=== PATIENT | female | born 1940 | race Caucasian/White ===

== ENCOUNTER → 2018-06-01 | Outpatient (CLI) | payer MEDICARE ==
--- NOTE | 2018-06-01 13:38 | MR ---
EXAMINATION TYPE: MR knee RT wo con DATE OF EXAM: 06/01/2018 COMPARISON: Plain film 04/28/2018 HISTORY: Right knee pain TECHNIQUE: Multiplanar, multisequence imaging of the right knee is performed without IV contrast. FINDINGS: MEDIAL MENISCUS: Linear increased signal present at the inferior margin of the body compatible with t ear extending to the articular surface. Anterior horn thought to be intact. Some abnormal signal pres ent within the posterior horn is noted. LATERAL MENISCUS: Lateral meniscus is displaced at its anterior margin laterally from the joint, some linear increased signal within the body compatible with tear, posterior horn thought to be intact. CRUCIATE LIGAMENTS: Posterior cruciate ligament is intact. The level of the expected insertion of the anterior cruciate ligament there is abnormal signal compatible with at least partial tear, the fiber s are not well defined COLLATERAL LIGAMENTS: The medial collateral ligament and lateral collateral ligament complex are inta ct and unremarkable. EXTENSOR MECHANISM: Visualized quadriceps and patellar tendons are intact. EFFUSION: Joint effusion present. POPLITEAL CYST: No popliteal/thorpe cyst. 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 IMPRESSION: Tear of the menisci as described, osteoarthritis and joint effusion. Findings compatible with a least partial tear of the anterior cruciate ligament near its expected insertion. Thorpe's cyst.
== END ==
LOC: RADMRIMAIN 12:30
PROVIDERS: ATTEND Orthopaedic Surgery
DX: S83.206A Unspecified tear of unspecified meniscus, current injury, right knee, initial encounter (principal); M17.11 Unilateral primary osteoarthritis, right knee; M71.21 Synovial cyst of popliteal space [Baker], right knee

== ENCOUNTER 2018-07-16 11:47 | Day surgery (SDC) | payer MEDICARE ==
[2018-07-14 09:31] VITALS: BMI 20.7
--- NOTE | 2018-07-15 20:38 | HP ---
HISTORY AND PHYSICAL DATE OF SURGERY: 07/16/2018 Denise Koo is a 78-year-old patient seen with progressive right knee pain. Treatment options were discussed with her. She elected to proceed with arthroscopy. Consent regarding the procedure was obtained. PAST MEDICAL HISTORY: Hypertension. PAST SURGICAL HISTORY: Noncontributory. DAILY MEDICATIONS: An antihypertensive. ALLERGIES: NONE REPORTED. SOCIAL HISTORY: She currently smokes cigarettes, one half pack a day. PHYSICAL EVALUATION OF THE RIGHT KNEE: Her range of motion is negative 2 to 115 degrees. There is a large Thorpe's cyst. She is tender along the medial joint lines. Positive medial Kate's. Ligaments are stable. Hip rotation without pain. Her distal neurovascular exam is intact. RADIOGRAPHS: Radiographs of the right knee revealed moderate osteoarthritis. MRI right knee revealed medial meniscal tear, lateral meniscal tear, large effusion. IMPRESSION: 1. Internal derangement of right knee with meniscal tears. 2. Hypertension. 3. Hyperlipidemia. 4. Tobacco use. PLAN: Right knee arthroscopy with partial meniscectomy and debridement. MMODL / IJN: [id number] /
[~2018-07-16 11:47] MED LIST: DEXAMETHASONE SOD PHOSPHATE 10 MG/ML 1 ML VIAL IV ONE; LACTATED RINGERS 1,000 ML IV SCH; MIDAZOLAM 2 MG/2 ML VIAL IV PRN; ONDANSETRON 4 MG/2 ML VIAL IVP ONE; ceFAZolin 1,000 MG in DEXTROSE/WATER 1 50ML.BAG IVPB ONE
[2018-07-16 12:22] VITALS: RESP 16
[2018-07-16] MEDS ORDERED: LIDOCAINE 1% 20 ML VIAL (10MG/ML) FOR IV START INTRADERMA ONE (12:25)
[2018-07-16] MEDS ORDERED: PROPOFOL 10 MG/ML 20 ML VIAL IV ONE (14:35)
[2018-07-16] MEDS ORDERED: fentaNYL (PF) 50 MCG/ML 2 ML AMP ONE (14:35)
[2018-07-16] MEDS ORDERED: LIDOCAINE 1% INJ 10MG/ML (20 ML MDV) ONE (14:35)
[2018-07-16] MEDS ORDERED: BUPIVACAINE (PF) 0.25% 30 ML VIAL INTRAARTIC ONE (14:45)
[2018-07-16 15:29] VITALS: TEMP 97.2
--- NOTE | 2018-07-16 15:29 | P.OP ---
Date of Procedure: 07/16/18 Preoperative Diagnosis: Internal derangement right knee Postoperative Diagnosis: 1. Tear lateral meniscus right knee 2. 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 Reactive synovitis medial, lateral and suprapatellar compartments right knee Procedure(s) Performed: 1. Arthroscopic partial lateral meniscectomy right knee 2. Arthroscopic chondroplasty lateral femoral condyle right knee 3. Arthroscopic partial synovectomy medial, lateral and suprapatellar compartments right knee Anesthesia: GETA, local Surgeon: Constantin Stern Estimated Blood Loss (ml): 5 Pathology: none sent Condition: stable Disposition: PACU Indications for Procedure: 78-year-old patient seen with progressive right knee pain. After having treatment options discussed, she elected to proceed with arthroscopy Operative Findings: See description of procedure Description of Procedure: Patient was taken to the operative suite. Patient underwent a general anesthetic by the department of anesthesia. Patient was given preoperative antibiotics. The right lower extremity was placed in a well-padded arthroscopic leg do. The right leg was prepped and draped in the normal sterile orthopedic fashion. A lateral parapatellar and suprapatellar incision was made. Trochars were inserted. Arthroscopy was initiated. Suprapatellar pouch revealed diffuse thick reactive synovitis. The patellofemoral joint appeared to articulate congruently. There was grade 1 chondromalacia, no osteochondral tears were present. The scope was guided into the medial gutter. No loose bodies or plica were identified. The scope was then guided into the medial compartment. A medial parapatellar incision was made. Trocar inserted followed by probe. There was some mild fraying posterior horn medial meniscus. There was reactive synovitis anteriorly. The medial femoral condyle and tibial plateau. Unremarkable. I debrided that small area of superficial fraying with a motorized shaver and then I performed a partial synovectomy decompressing the thick reactive synovitis. There was good decompression of synovitis. Scope and probe were then guided into the intercondylar notch. Cruciates were identified, probed and found to be stable. The scope and probe were then guided into lateral compartment. There was a complex tear of the anterior horn lateral meniscus extending into the midbody and some radial tear in the posterior horn. There were grade 1/2 chondromalacia changes of the lateral femoral condyle with some small osteochondral tears present. There was reactive synovitis anteriorly. I performed a partial lateral meniscectomy down to stable tissue. I performed a chondroplasty of the lateral femoral condyle down to stable tissue. I performed a partial synovectomy decompressing that reactive synovitis. The residual meniscus was found to be stable. The residual osteochondral surface was stable. There was good decompression of the synovitis. The scope was in guided back into the suprapatellar compartment. I introduced a motorized shaver into the suprapatellar compartment. I debrided some small piecemeal fragments of meniscus I encountered. I performed a partial synovectomy decompressing the reactive synovitis. Shaver was removed. I took one more look on the entire knee, no residual debris. Instruments were now removed from the joint. The joint was infiltrated with .25% Marcaine. Steri-Strips were applied to the portal sites. Sterile dressings were applied. The patient was placed into a GABI hose. No tourniquet was utilized. The patient was awakened, transferred to a bed and taken to recovery stable satisfactory condition.
[2018-07-16] MEDS: HYDROmorphone 0.5 MG/0.5 ML SYRINGE IVP PRN ×2 (16:04→16:30)
[2018-07-16 17:12] VITALS: BP 147/65; PULSE 72
== END 2018-07-16 17:35 | disposition home or self-care (01) ==
LOC: OR 11:47
PROVIDERS: ATTEND Orthopaedic Surgery
DX: S83.271A Complex tear of lateral meniscus, current injury, right knee, initial encounter (principal); X58.XXXA Exposure to other specified factors, initial encounter; M94.261 Chondromalacia, right knee; M65.861 Other synovitis and tenosynovitis, right lower leg; M17.11 Unilateral primary osteoarthritis, right knee; M71.21 Synovial cyst of popliteal space [Baker], right knee; E78.5 Hyperlipidemia, unspecified; I10 Essential (primary) hypertension; I25.10 Atherosclerotic heart disease of native coronary artery without angina pectoris; F32.9 Major depressive disorder, single episode, unspecified; D64.9 Anemia, unspecified; I77.9 Disorder of arteries and arterioles, unspecified; K58.0 Irritable bowel syndrome with diarrhea; F17.210 Nicotine dependence, cigarettes, uncomplicated; Z79.899 Other long term (current) drug therapy; Z85.3 Personal history of malignant neoplasm of breast; Z90.12 Acquired absence of left breast and nipple
CPT/HCPCS: 29881; 29876; J1100; J2405; J2001; J3010; J0690; J2704; J1170

== ENCOUNTER → 2019-11-16 | Outpatient (CLI) | payer MEDICARE | END | disposition home or self-care (01) | LOC: CPPFTMAIN 13:28 | PROVIDERS: ATTEND Internal Medicine Critical Care Medicine | DX: J45.909 Unspecified asthma, uncomplicated (principal); J43.9 Emphysema, unspecified; R94.2 Abnormal results of pulmonary function studies | CPT/HCPCS: 94060; 94726; 94729 ==

== ENCOUNTER 2021-12-05 12:11 | Observation (INO) | payer MEDICARE ==
[2021-12-05] MEDS ORDERED: ASPIRIN 81 MG PO STA (12:29)
[2021-12-05] MEDS ORDERED: SODIUM CHLORIDE 0.9% 1,000 ML IV STA (12:29)
[2021-12-05] MEDS ORDERED: NITROGLYCERIN OINT 1 INCH/GM PACKET TOPICAL STA (12:29)
[2021-12-05] MEDS ORDERED: ALPRAZolam 0.25 MG TAB PO STA (12:31)
--- NOTE | 2021-12-05 12:31 | ED ---
General Adult HPI - General Chief complaint: Chest Pain Stated complaint: chest pain Time Seen by Provider: 12/05/21 12:24 Source: patient, family, RN notes reviewed Mode of arrival: wheelchair Limitations: no limitations - History of Present Illness Initial comments: Patient is a pleasant 81-year-old female presenting to the emergency Department with chest discomfort. Onset of symptoms was this morning. Discomfort was more moderate earlier however is mild at this time. Discomfort feels like tightness. Without radiation. No associated dyspnea, nausea, or diaphoresis. Patient does have decreased appetite and oral intake over the past several weeks. Patient has been more fatigued recently. - Related Data Home Medications Medication Instructions Recorded Confirmed Sertraline [Zoloft] 50 mg PO DAILY 04/26/15 07/16/18 Simvastatin 10 mg PO HS 04/27/15 07/16/18 Previous Rx's Medication Instructions Recorded Ferrous Sulfate [Feosol] 325 mg PO DAILY #30 tab 04/28/15 amLODIPine [Norvasc] 5 mg PO BID #60 tab 04/28/15 lisinopriL [Zestril] 20 mg PO BID #60 tab 04/28/15 traMADol HCl [Ultram] 50 mg PO Q6H PRN #12 tab 07/16/18 Allergies Allergy/AdvReac Type Severity Reaction Status Date / Time No Known Allergies Allergy Verified 12/05/21 12:15 Review of Systems ROS Statement: Those systems with pertinent positive or pertinent negative responses have been documented in the HPI. ROS Other: All systems not noted in ROS Statement are negative. Constitutional: Denies: fever Eyes: Denies: eye pain ENT: Denies: ear pain Respiratory: Denies: cough Cardiovascular: Reports: chest pain Endocrine: Reports: fatigue Gastrointestinal: Denies: abdominal pain Genitourinary: Denies: dysuria Musculoskeletal: Denies: back pain Skin: Denies: rash Neurological: Denies: headache Psychiatric: Reports: anxiety Past Medical History Past Medical History: Cancer, Hyperlipidemia, Hypertension, Osteoarthritis (OA) Additional Past Medical History / Comment(s): lt breast cancer History of Any Multi-Drug Resistant Organisms: None Reported Additional Past Surgical History / Comment(s): left mastectomy-1995 Past Anesthesia/Blood Transfusion Reactions: No Reported Reaction Past Psychological History: Depression Smoking Status: Current every day smoker Past Alcohol Use History: Rare Past Drug Use History: None Reported - Past Family History Father Additional Family Medical History / Comment(s): committed suicide Mother Family Medical History: Cancer Sister(s) Family Medical History: Diabetes Mellitus General Exam Limitations: no limitations General appearance: alert, in no apparent distress Head exam: Present: normocephalic Eye exam: Present: normal appearance ENT exam: Present: normal oropharynx Neck exam: Present: normal inspection Respiratory exam: Present: normal lung sounds bilaterally Cardiovascular Exam: Present: regular rate, normal rhythm Expanded Peripheral pulses: 2+: Radial (R), Radial (L), Posterior Tibialis (R), Posterior Tibialis (L) GI/Abdominal exam: Present: soft. Absent: tenderness Extremities exam: Present: normal inspection. Absent: pedal edema, calf tenderness Neurological exam: Present: alert Psychiatric exam: Present: anxious (Patient appears mildly anxious) Skin exam: Present: normal color Course Vital Signs 12/05/21 12/05/21 12:13 13:30 Temperature 98.2 F Pulse Rate 78 73 Respiratory 16 18 Rate Blood Pressure 174/78 136/62 O2 Sat by Pulse 97 96 Oximetry EKG Findings - EKG Comments: EKG Findings:: Sinus rhythm with a rate of 69. NC 147. QRS 96. QT 337. QTC 37. Normal axis. LVH. Nonspecific ST-T. Medical Decision Making - Medical Decision Making Patient reevaluated and resting comfortably in bed. Patient is somewhat improved. Family states patient has been having some symptoms for several weeks as well as anxiety and not well. Patient and family updated on results and plan. Case discussed with Dr. Valverde, who will admit covering hospital observation call. - Lab Data Result diagrams: 12/05/21 12:46 12/05/21 12:46 Lab Results 12/05/21 12/05/21 12/05/21 Range/Units 12:46 12:46 12:46 WBC 8.2 (3.8-10.6) k/uL RBC 4.30 (3.80-5.40) m/uL Hgb 12.9 (11.4-16.0) gm/dL Hct 40.3 (34.0-46.0) % MCV 93.6 (80.0-100.0) fL MCH 30.1 (25.0-35.0) pg MCHC 32.2 (31.0-37.0) g/dL RDW 14.1 (11.5-15.5) % Plt Count 295 (150-450) k/uL MPV 7.5 Neutrophils % 72 % Lymphocytes % 22 % Monocytes % 4 % Eosinophils % 0 % Basophils % 1 % Neutrophils # 5.9 (1.3-7.7) k/uL Lymphocytes # 1.8 (1.0-4.8) k/uL Monocytes # 0.3 (0-1.0) k/uL Eosinophils # 0.0 (0-0.7) k/uL Basophils # 0.1 (0-0.2) k/uL PT 10.0 (9.0-12.0) sec INR 0.9 (<1.2) APTT 26.1 (22.0-30.0) sec Sodium 141 (137-145) mmol/L Potassium 3.9 (3.5-5.1) mmol/L Chloride 106 (98-107) mmol/L Carbon Dioxide 22 (22-30) mmol/L Anion Gap 13 mmol/L BUN 23 H (7-17) mg/dL Creatinine 0.87 (0.52-1.04) mg/dL Est GFR (CKD-EPI)AfAm 72 (>60 ml/min/1.73 sqM) Est GFR (CKD-EPI)NonAf 63 (>60 ml/min/1.73 sqM) Glucose 207 H (74-99) mg/dL Calcium 9.9 (8.4-10.2) mg/dL Magnesium 2.1 (1.6-2.3) mg/dL Total Bilirubin 0.3 (0.2-1.3) mg/dL AST 23 (14-36) U/L ALT 14 (4-34) U/L Alkaline Phosphatase 75 (38-126) U/L Troponin I (0.000-0.034) ng/mL Total Protein 7.3 (6.3-8.2) g/dL Albumin 4.3 (3.5-5.0) g/dL Amylase 70 (30-110) U/L Lipase 163 (23-300) U/L 12/05/21 Range/Units 12:46 WBC (3.8-10.6) k/uL RBC (3.80-5.40) m/uL Hgb (11.4-16.0) gm/dL Hct (34.0-46.0) % MCV (80.0-100.0) fL MCH (25.0-35.0) pg MCHC (31.0-37.0) g/dL RDW (11.5-15.5) % Plt Count (150-450) k/uL MPV Neutrophils % % Lymphocytes % % Monocytes % % Eosinophils % % Basophils % % Neutrophils # (1.3-7.7) k/uL Lymphocytes # (1.0-4.8) k/uL Monocytes # (0-1.0) k/uL Eosinophils # (0-0.7) k/uL Basophils # (0-0.2) k/uL PT (9.0-12.0) sec INR (<1.2) APTT (22.0-30.0) sec Sodium (137-145) mmol/L Potassium (3.5-5.1) mmol/L Chloride (98-107) mmol/L Carbon Dioxide (22-30) mmol/L Anion Gap mmol/L BUN (7-17) mg/dL Creatinine (0.52-1.04) mg/dL Est GFR (CKD-EPI)AfAm (>60 ml/min/1.73 sqM) Est GFR (CKD-EPI)NonAf (>60 ml/min/1.73 sqM) Glucose (74-99) mg/dL Calcium (8.4-10.2) mg/dL Magnesium (1.6-2.3) mg/dL Total Bilirubin (0.2-1.3) mg/dL AST (14-36) U/L ALT (4-34) U/L Alkaline Phosphatase (38-126) U/L Troponin I <0.012 (0.000-0.034) ng/mL Total Protein (6.3-8.2) g/dL Albumin (3.5-5.0) g/dL Amylase (30-110) U/L Lipase (23-300) U/L - Radiology Data Radiology results: image reviewed (Chest x-ray shows no acute process. Cardiomegaly.) Disposition Clinical Impression: Chest pain Disposition: ADMITTED IP TO THIS HOSP Is patient prescribed a controlled substance at d/c from ED?: No Referrals: Eliseo Haas DO [Primary Care Provider] - 1-2 days Time of Disposition: 14:32
[2021-12-05 13:01] LABS: Basophils # (A) 0.1 k/uL (0-0.2); Basophils % (A) 1 %; Eosinophils % (A) 0 %; HCT 40.3 % (34.0-46.0); HGB 12.9 gm/dL (11.4-16.0); Lymphocytes # (A) 1.8 k/uL (1.0-4.8); Lymphocytes % (A) 22 %; MCH 30.1 pg (25.0-35.0); MCHC 32.2 g/dL (31.0-37.0); MCV 93.6 fL (80.0-100.0); Mean Platelet Volume 7.5; Monocytes # (A) 0.3 k/uL (0-1.0); Monocytes % (A) 4 %; Neutrophils # (A) 5.9 k/uL (1.3-7.7); Neutrophils % (A) 72 %; Platelet Count 295 k/uL (150-450); RDW 14.1 % (11.5-15.5); WBC 8.2 k/uL (3.8-10.6)
[2021-12-05 13:13] LABS: INR 0.9 (<1.2)
[2021-12-05 13:14] LABS: Albumin 4.3 g/dL (3.5-5.0); Calcium 9.9 mg/dL (8.4-10.2); Magnesium 2.1 mg/dL (1.6-2.3); Partial Thromboplastin Time 26.1 sec (22.0-30.0); Potassium 3.9 mmol/L (3.5-5.1); Total Bilirubin 0.3 mg/dL (0.2-1.3); Total Protein 7.3 g/dL (6.3-8.2)
--- NOTE | 2021-12-05 14:11 | XR ---
EXAMINATION TYPE: XR chest 2V DATE OF EXAM: 12/05/2021 COMPARISON: Chest x-ray April 28, 2015 HISTORY: Chest pain. TECHNIQUE: Frontal and lateral views of the chest are obtained. FINDINGS: There is no suspicious focal air space opacity, pleural effusion, or pneumothorax seen. T he cardiac silhouette size is stable and enlarged. The osseous structures are demineralized. Dimini shed size to left breast with left breast implant is redemonstrated. IMPRESSION: Cardiomegaly without acute pulmonary process.
[2021-12-05] MEDS ORDERED: NITROGLYCERIN SL TABS 0.4 MG TAB SUBLINGUAL PRN (14:32)
[2021-12-05] MEDS ORDERED: ALPRAZolam 0.25 MG TAB PO PRN (14:32)
[2021-12-05] MEDS ORDERED: ALBUTEROL NEBULIZED 2.5 MG/3 ML INHALATION PRN (17:14)
--- NOTE | 2021-12-05 17:27 | P.HPIM ---
History of Present Illness H&P Date: 12/05/21 Chief Complaint: Chest pain Patient is an 81-year-old female with PMH of hypertension, dyslipidemia, insomnia, history of left breast cancer presents the ED for chest pressure. She reports chest pressure that started this morning. She reports no strenuous activity. Patient states that she was eating a slice of bread when it happened. She reports tingling on both sides of her neck. She denies any diaphoresis or radiation of pain. She actually denies any chest pain. She denies any family history of heart disease. She denies any headache, lower extremity edema, na usea or vomiting, fever or chills, shortness of breath, palpitations, changes in urination or bowel habits. No changes in appetite or weight. She denies any dizziness, numbness/weakness setting of the extremities. In the ED, her vital signs are stable. CBC was unremarkable. Coagulation panel was negative. CMP showed BUN of 23 and glucose of 27. Troponin was less than 0.012 with EKG showing sinus rhythm with sinus arrhythmia and ST changes. Chest x-ray show cardiomegaly. Patient is admitted under observation status for chest pain, rule out acute coronary syndrome and cardiology evaluation. Review of systems was performed and is negative except above. General: [non toxic], [no distress], [appears at stated age] Derm: [warm], [dry] Head: [atraumatic], [normocephalic], [symmetric] Eyes: [EOMI], [no lid lag], [anicteric sclera] Mouth: [no lip lesion], [mucus membranes moist] Cardiovascular: [S1S2 reg], [no murmur], [positive posterior tibial pulse bilateral], Lungs: [CTA bilateral], [no rhonchi, no rales] , [no accessory muscle use] Abdominal: [soft], [ nontender to palpation], [no guarding], [no appreciable organomegaly] Ext: [no gross muscle atrophy], [no edema], [no contractures] Neuro: [ CN II-XI grossly intact], [no focal neuro deficits] Psych: [Alert], [oriented], [appropriate affect] Assessment and plan Chest pain Elevated BUN Smoker Hypertension Dyslipidemia Insomnia History of breast cancer Patient presents for chest pain described as pressure-like in nature. Her initial troponin is negative and EKG showing sinus arrhythmia with ST changes. Troponins were trended and ACS will be ruled out. She has been given aspirin 325 mg by mouth. Telemetry monitoring will be ordered. Cardiology will be consulted for further management of this patient. Echocardiogram and lipid panel ordered. She was given 1 L bolus for elevated BUN likely related to dehydration. She has been offered a nicotine patch but refuses. Hydralazine and amlodipine restarted for history of hypertension. Monitor vitals, adjust medication if necessary. Restart simvastatin for dyslipidemia. Restart trazodone for history of insomnia. DVT prophylaxis: [Heparin] Discussed with: [Patient] Anticipated discharge: [1-2 days] Anticipated discharge place: [Home] A total of [35] minutes was spent on the care of this complex patient more than 50% of the time was spent in counseling and care coordination. Patient names her son and daughter decision maker if she can't make decisions for herself. Patient would like to be full code. 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 Family voiced concern that for past month and a half, pt has had increased tiredness/dizzy/shaking/gets tingling in neck/arms and very poor appetite History of Any Multi-Drug Resistant Organisms: None Reported Past Surgical History: Breast Surgery Additional Past Surgical History / Comment(s): left mastectomy-1995, R knee arthroscopy, nasal endoscopy, colonoscopy. Past Anesthesia/Blood Transfusion Reactions: No Reported Reaction Past Psychological History: Anxiety, Depression Additional Psychological History / Comment(s): Pt resides alone in a condo but last few weeks she has had family stay with her or she has gone to her children's houses. Pt has MOW. She normally drives. She uses no assistive device. Smoking Status: Current every day smoker Past Alcohol Use History: Rare Additional Past Alcohol Use History / Comment(s): Pt started smoking in 1956 and is a half a ppd smoker. Past Drug Use History: None Reported - Past Family History Father Additional Family Medical History / Comment(s): committed suicide Mother Family Medical History: Cancer Sister(s) Family Medical History: Diabetes Mellitus Medications and Allergies Home Medications Medication Instructions Recorded Confirmed Type Sertraline [Zoloft] 50 mg PO DAILY 04/26/15 12/05/21 History Simvastatin 10 mg PO DAILY 04/27/15 12/05/21 History amLODIPine [Norvasc] 5 mg PO BID #60 tab 04/28/15 12/05/21 Rx Albuterol Sulfate [Ventolin HFA] 2 puff INHALATION RT-QID PRN 12/05/21 12/05/21 History Ascorbic Acid [Vitamin C] 1,000 mg PO DAILY 12/05/21 12/05/21 History Cholecalciferol [Vitamin D3 (25 50 mcg PO DAILY 12/05/21 12/05/21 History Mcg = 1000 Iu)] Cyproheptadine [Cyproheptadine HCl] 4 mg PO HS 12/05/21 12/05/21 History hydrALAZINE HCL [Apresoline] 50 mg PO BID 12/05/21 12/05/21 History traZODone HCL [Desyrel] 25 mg PO HS 12/05/21 12/05/21 History Allergies Allergy/AdvReac Type Severity Reaction Status Date / Time No Known Allergies Allergy Verified 12/05/21 15:01 Physical Exam Vitals: Vital Signs Temp Pulse Pulse Resp BP BP Pulse Ox 12/05/21 16:35 98.1 F 57 L 20 167/65 96 12/05/21 16:00 56 L 18 133/94 97 12/05/21 13:30 73 18 136/62 96 12/05/21 12:13 98.2 F 78 16 174/78 97 Intake and Output 12/05/21 12/05/21 12/05/21 06:59 14:59 22:59 Other: Weight 49.442 kg Results CBC & Chem 7: 12/05/21 12:46 12/05/21 12:46 Labs: Abnormal Lab Results - Last 24 Hours (Table) 12/05/21 Range/Units 12:46 BUN 23 H (7-17) mg/dL Glucose 207 H (74-99) mg/dL Thrombosis Risk Factor Assmnt - Choose All That Apply Any of the Below Risk Factors Present?: Yes Each Factor Represents 1 point: Abnormal pulmonary function (COPD) Other Risk Factors: Yes Each Risk Factor Represents 2 Points: Malignancy Each Risk Factor Represents 3 Points: Age 75 years or older Other congenital or acquired thrombophilia - If yes, enter type in comment: No Thrombosis Risk Factor Assessment Total Risk Factor Score: 6 Thrombosis Risk Factor Assessment Level: High Risk
[2021-12-05] MEDS: amLODIPine 5 MG TAB PO SCH (20:09)
[2021-12-05] MEDS: hydrALAZINE HCL 50 MG TAB PO SCH (20:10)
[2021-12-05] MEDS: MELATONIN 3 MG TABLET PO SCH (20:10)
[2021-12-05] MEDS: CYPROHEPTADINE 4 MG TABLET PO SCH (20:10)
[2021-12-05] MEDS: HEPARIN SODIUM,PORCINE/PF 5,000 UNIT/0.5 ML SYRINGE SQ SCH (20:11)
[2021-12-05] MEDS ORDERED: traZODone HCL 50 MG TAB PO SCH (21:00)
[2021-12-06] MEDS ORDERED: MORPHINE SULFATE 4 MG/ML SYRINGE IVP STA (05:13)
[2021-12-06] MEDS ORDERED: REGADENOSON 0.4 MG/5 ML SYRINGE IV PRN (08:12)
[2021-12-06] MEDS ORDERED: AMINOPHYLLINE 500 MG/20 ML VIAL IV PRN (08:12)
[2021-12-06] MEDS ORDERED: CAFFEINE CITRATE 60 MG/3 ML VIAL IV PRN (08:12)
[2021-12-06 09:00] LABS: Chol/HDL Ratio 2.65 Ratio; LDL Cholesterol,Calculated 78.9 mg/dL (0.0-131.0)
[2021-12-06] MEDS ORDERED: ASPIRIN 325 MG TAB PO SCH (09:00)
[2021-12-06] MEDS ORDERED: SERTRALINE 50 MG TAB PO SCH (09:00)
--- NOTE | 2021-12-06 10:06 | P.CRDCN ---
History of Present Illness History of present illness: HISTORY OF PRESENTING ILLNESS This is a pleasant 81-year-old female past medical history significant for left breast cancer, hypertension, hyperlipidemia, chronic nicotine dependence. She does not follow with a medicaid biller. We have been asked to see in consultation for chest pain. Patient presents to the emergency department with chest discomfort. She states she has been having upper chest heaviness and heaviness/tingling in the upper back, neck and shoulders. She states it comes and goes. It occurs at rest mostly. She has associated lightheadedness and some shortness of breath. She states sometimes it lasts for an hour and other times less. No specific alleviating or aggravating factors. It is not aggravated by movement or palpation. Yesterday specifically, she woke up in the morning, started to make breakfast and had heaviness in her upper chest, radiating to her upper back and bilateral shoulders, she felt lightheaded, "shaking bilateral upper extremities", and had generalized weakness. She came to the ER for further evaluation. She denies any nausea, vomiting, diaphoresis, syncope, palpitations. She does endorse decreased appetite. No cough, fever, or chills. States weight loss of 4 pounds over 2 week period. She currently smokes 1-3 cigarettes a day. Denies any alcohol or illicit drug use. DIAGNOSTICS EKG reveals sinus rhythm, heart rate 69, nonspecific ST-T wave abnormalities. Artifact noted. LVH. No acute ischemia noted. Telemetry tracings indicate sinus mechanism, heart rate 4550s. Chest xray no acute cardiopulmonary process Laboratory reviewed, CBC unremarkable, troponin negative 3, sodium 141, potassium 3.9, BUN 23, serum creatinine 0.8, magnesium 2.1, triglycerides 144, cholesterol 173, LDL 78, HDL 65 Current home medications include trazodone, hydralazine 50 mg twice a day, amlodipine 5 mg twice a day, simvastatin 10 mg daily, Zoloft, vitamin D, vitamin C, albuterol inhaler REVIEW OF SYSTEMS At the time of my exam: Patient's symptoms have resolved CONSTITUTIONAL: Denies fever or chills. CARDIOVASCULAR: Denies chest pain, shortness of breath, orthopnea, PND or palpitations. RESPIRATORY: Denies cough. GASTROINTESTINAL: Denies abdominal pain, diarrhea, constipation, nausea or vomiting. MUSCULOSKELETAL: Denies myalgias. NEUROLOGIC: Denies numbness, tingling, headache or weakness. ENDOCRINE: Denies fatigue, weight change, polydipsia or polyurina. GENITOURINARY: Denies burning, hematuria or urgency with micturation. HEMATOLOGIC: Denies history of anemia or bleeding. PHYSICAL EXAMINATION Blood pressure 151/55, heart rate 59, afebrile, saturation 97% on room air CONSTITUTIONAL: No apparent distress. HEENT: Head is normocephalic. Pupils are equal, round. Sclerae anicteric. Mucous membranes of the mouth are moist. No JVD. No carotid bruit. CHEST EXAMINATION: Lungs are clear to auscultation. No chest wall tenderness is noted on palpation or with deep breathing. HEART EXAMINATION: Regular rate and rhythm. S1, S2 heard. No murmurs, gallops or rub. ABDOMEN: Soft, nontender. Positive bowel sounds. EXTREMITIES: 2+ peripheral pulses, no lower extremity edema and no calf tenderness. SKIN: Warm, dry NEUROLOGIC EXAMINATION: Patient is awake, alert and oriented x3. ASSESSMENT Chest pain, atypical, acute respiratory syndrome has ruled out History of hypertension Dyslipidemia Chronic nicotine dependence History of left breast cancer status post prior left mastectomy PLAN An acute coronary event has been ruled out with no EKG evidence of ischemia and negative cardiac enzymes. Obtain 2D echocardiogram and doppler study to assess cardiac structure and function. Perform Lexiscan stress test to assess for stress induced cardiac ischemia. If abnormal will consider coronary angiography. Smoking cessation discussed and highly recommended. If stress test is negative for reversible ischemia, no further inpatient workup from cardiology perspective Thank you kindly for this consultation. Nurse practitioner note has been reviewed by physician. Signing provider agrees with the documented findings, assessment, and plan of care. 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 Family voiced concern that for past month and a half, pt has had increased tiredness/dizzy/shaking/gets tingling in neck/arms and very poor appetite History of Any Multi-Drug Resistant Organisms: None Reported Past Surgical History: Breast Surgery Additional Past Surgical History / Comment(s): left mastectomy-1995, R knee arthroscopy, nasal endoscopy, colonoscopy. Past Anesthesia/Blood Transfusion Reactions: No Reported Reaction Past Psychological History: Anxiety, Depression Additional Psychological History / Comment(s): Pt resides alone in a condo but last few weeks she has had family stay with her or she has gone to her children's houses. Pt has MOW. She normally drives. She uses no assistive device. Smoking Status: Current every day smoker Past Alcohol Use History: Rare Additional Past Alcohol Use History / Comment(s): Pt started smoking in 1956 and is a half a ppd smoker. Past Drug Use History: None Reported - Past Family History Father Additional Family Medical History / Comment(s): committed suicide Mother Family Medical History: Cancer Sister(s) Family Medical History: Diabetes Mellitus Medications and Allergies Home Medications Medication Instructions Recorded Confirmed Type Sertraline [Zoloft] 50 mg PO DAILY 04/26/15 12/05/21 History Simvastatin 10 mg PO DAILY 04/27/15 12/05/21 History amLODIPine [Norvasc] 5 mg PO BID #60 tab 04/28/15 12/05/21 Rx Albuterol Sulfate [Ventolin HFA] 2 puff INHALATION RT-QID PRN 12/05/21 12/05/21 History Ascorbic Acid [Vitamin C] 1,000 mg PO DAILY 12/05/21 12/05/21 History Cholecalciferol [Vitamin D3 (25 50 mcg PO DAILY 12/05/21 12/05/21 History Mcg = 1000 Iu)] Cyproheptadine [Cyproheptadine HCl] 4 mg PO HS 12/05/21 12/05/21 History hydrALAZINE HCL [Apresoline] 50 mg PO BID 12/05/21 12/05/21 History traZODone HCL [Desyrel] 25 mg PO HS 12/05/21 12/05/21 History Allergies Allergy/AdvReac Type Severity Reaction Status Date / Time No Known Allergies Allergy Verified 12/05/21 15:01 Physical Exam Vitals: Vital Signs Temp Pulse Pulse Resp BP BP Pulse Ox 12/06/21 01:37 97.8 F 53 L 18 131/52 100 12/05/21 20:00 98.8 F 58 L 18 154/64 95 12/05/21 16:35 98.1 F 57 L 20 167/65 96 12/05/21 16:00 56 L 18 133/94 97 12/05/21 13:30 73 18 136/62 96 12/05/21 12:13 98.2 F 78 16 174/78 97 Intake and Output 12/05/21 12/06/21 12/06/21 22:59 06:59 14:59 Intake Total 360 Balance 360 Intake: Oral 360 Other: # Voids 1 1 Results 12/05/21 12:46 12/05/21 12:46 Cardiac Enzymes 12/05/21 12/05/21 12/05/21 Range/Units 12:46 12:46 16:51 AST 23 (14-36) U/L Troponin I <0.012 <0.012 (0.000-0.034) ng/mL 12/05/21 Range/Units 20:16 AST (14-36) U/L Troponin I <0.012 (0.000-0.034) ng/mL Coagulation 12/05/21 Range/Units 12:46 PT 10.0 (9.0-12.0) sec APTT 26.1 (22.0-30.0) sec CBC 12/05/21 Range/Units 12:46 WBC 8.2 (3.8-10.6) k/uL RBC 4.30 (3.80-5.40) m/uL Hgb 12.9 (11.4-16.0) gm/dL Hct 40.3 (34.0-46.0) % Plt Count 295 (150-450) k/uL Comprehensive Metabolic Panel 12/05/21 Range/Units 12:46 Sodium 141 (137-145) mmol/L Potassium 3.9 (3.5-5.1) mmol/L Chloride 106 (98-107) mmol/L Carbon Dioxide 22 (22-30) mmol/L BUN 23 H (7-17) mg/dL Creatinine 0.87 (0.52-1.04) mg/dL Glucose 207 H (74-99) mg/dL Calcium 9.9 (8.4-10.2) mg/dL AST 23 (14-36) U/L ALT 14 (4-34) U/L Alkaline Phosphatase 75 (38-126) U/L Total Protein 7.3 (6.3-8.2) g/dL Albumin 4.3 (3.5-5.0) g/dL Current Medications Generic Name Dose Route Start Last Admin Trade Name Melodie PRN Reason Stop Dose Admin Albuterol Sulfate 2.5 mg 12/05/21 17:14 Albuterol Nebulized 2.5 Mg/3 Ml INHALATION RT-QID PRN Shortness Of Breath Alprazolam 0.25 mg 12/05/21 14:32 Alprazolam 0.25 Mg Tab PO QID PRN Anxiety Amlodipine Besylate 5 mg 12/05/21 21:00 12/05/21 20:09 Amlodipine 5 Mg Tab PO 5 mg BID ANNIKA Administration Aspirin 325 mg 12/06/21 09:00 Aspirin 325 Mg Tab PO DAILY ANNIKA Atorvastatin Calcium 10 mg 12/06/21 09:00 Atorvastatin 10 Mg Tab PO DAILY ANNIKA Cyproheptadine HCl 4 mg 12/05/21 21:00 12/05/21 20:10 Cyproheptadine 4 Mg Tablet PO 4 mg HS ANNIKA Administration Heparin Sodium (Porcine) 5,000 unit 12/05/21 21:00 12/05/21 20:11 Heparin Sodium,Porcine/Pf 5,000 Unit/0.5 Ml Syringe SQ 5,000 unit Q12HR ANNIKA Administration Hydralazine HCl 50 mg 12/05/21 21:00 12/05/21 20:10 Hydralazine Hcl 50 Mg Tab PO 50 mg BID ANNIKA Administration Melatonin 3 mg 12/05/21 21:00 12/05/21 20:10 Melatonin 3 Mg Tablet PO 3 mg HS ANNIKA Administration Nitroglycerin 0.4 mg 12/05/21 14:32 Nitroglycerin Sl Tabs 0.4 Mg Tab SUBLINGUAL Q5M PRN Chest Pain Sertraline HCl 50 mg 12/06/21 09:00 Sertraline 50 Mg Tab PO DAILY ANNIKA Trazodone HCl 25 mg 12/05/21 21:00 12/05/21 20:09 Trazodone Hcl 50 Mg Tab PO 25 mg HS ANNIKA Administration Intake and Output 12/05/21 12/06/21 12/06/21 22:59 06:59 14:59 Intake Total 360 Balance 360 Intake: Oral 360 Other: # Voids 1 1 12/05/21 12:46 12/05/21 12:46
--- NOTE | 2021-12-06 11:22 | CA ---
Transthoracic Echo Report Name: Denise Koo Age: 81 Gender: F : 1940 Exam Date: 12/06/2021 08:04 Exam Location: [facility] Ht (in): 60 Wt (lb): 109 Ordering Physician: Greta Davis MD Attending/Referring Phys: House Worker Maricel Molina RDCS Procedure CPT: Indications: Chest Pain Cardiac Hx: Technical Quality: Good Contrast 1: Total Dose (mL): Contrast 2: Total Dose (mL): MEASUREMENTS (Male / Female) Normal Values 2D ECHO LV Diastolic Diameter PLAX 4.1 cm 4.2 - 5.9 / 3.9 - 5.3 cm LV Systolic Diameter PLAX 3.3 cm IVS Diastolic Thickness 1.1 cm 0.6 - 1.0 / 0.6 - 0.9 cm LVPW Diastolic Thickness 1.1 cm 0.6 - 1.0 / 0.6 - 0.9 cm LV Relative Wall Thickness 0.5 RV Internal Dim ED PLAX 3.1 cm LA Systolic Diameter LX 3.5 cm 3.0 - 4.0 / 2.7 - 3.8 cm LA Volume 60.5 cm??? 18 - 58 / 22 - 52 cm??? M-MODE Aortic Root Diameter MM 3.1 cm MV E Point Septal Separation 1.2 cm AV Cusp Separation MM 2.1 cm DOPPLER AV Peak Velocity 97.3 cm/s AV Peak Gradient 3.8 mmHg MV E' Velocity 7.0 cm/s TR Peak Velocity 251.8 cm/s TR Peak Gradient 25.4 mmHg Right Ventricular Systolic Press 30.0 mmHg FINDINGS Left Ventricle Left ventricular ejection fraction is estimated at 50-55 %. Left ventricular cavity size normal. Borderline left ventricular hypertrophy. Right Ventricle Normal right ventricular size and function. Right ventricular systolic pressure within normal limits. Right Atrium Normal right atrial size. Left Atrium Mildly increased left atrial volume. No evidence for an atrial septal defect. Mitral Valve Mild mitral regurgitation. Mitral annulus calcification Aortic Valve Trileaflet aortic valve. No aortic valve stenosis or regurgitation. Fibrocalcific changes of the aortic cusps Tricuspid Valve Mild tricuspid regurgitation. Normal tricuspid valve Pulmonic Valve Pulmonic valve not well visualized. Pericardium Normal pericardium. No pericardial effusion. Aorta Normal size aortic root and proximal ascending aorta. CONCLUSIONS 1. Borderline left ventricle systolic function 2. Mild mitral and tricuspid regurgitation. 3. No pericardial effusion Previewed by: Dr. Michelle Mccoy MD (Electronically Signed) Final Date: 06 December 2021 11:21
--- NOTE | 2021-12-06 11:57 | CA ---
Lexiscan Nuclear Stress Test Report Name: Denise Koo Exam Date: 12/06/2021 11:07 Exam Location: [facility] Stress Ht (in): 60 Wt (lb): 109 BSA: 1.44 Ordering Phys: Nory Beal Referring Phys: KATHERINE,, Technologist: Viral Vogt Age: 81 Gender: F : 1940 Procedure CPT: Indications: Reflex order-Stress test ICD-10 Codes: Patient History: CHEST PAIN, HTN, ELEVATED CHOLESTEROL LEVELS, CURRENT SMOKER 0.25 PPD X 60 YEARS, COPD Medications: Meds past 24 hrs: Pretest Chest Pain: STRESS TEST Lexiscan Protocol Exercise Duration (min:sec): 01:[address] Depressions (mm): Angina Score: Carmichael Score: Resting HR (bpm): 46 Peak HR (bpm): 82 Resting BP (mmHg): 151 / 57 Peak BP (mmHg): 151 / 57 MPHR: 139 Target HR: 118 % MPHR: 59 METS: 1.0 Total Dose: Peak Dose: Atropine: Double Product: 25663 BP Response: Stress Termination: INFUSION COMPLETE Stress Symptoms: DIFFICULTY IN BREATHING Stress Summary: ECG ANALYSIS Resting ECG: Sinus bradycardia. Nonspecific ST-T abnormality. Stress ECG: No ECG changes from baseline with Lexiscan infusion. CONCLUSIONS No ECG evidence of ischemia with Lexiscan infusion. Nuclear test results to follow. Dr. Michelle Mccoy MD (Electronically Signed) Final Date: 06 December 2021 11:56
[2021-12-06] MEDS: ATORVASTATIN 10 MG TAB PO SCH (12:21)
[2021-12-06] MEDS: HEPARIN SODIUM,PORCINE/PF 5,000 UNIT/0.5 ML SYRINGE SQ SCH ×2 (12:21→20:51)
[2021-12-06] MEDS: amLODIPine 5 MG TAB PO SCH ×2 (12:21→20:48)
[2021-12-06] MEDS: ASPIRIN 81 MG PO SCH (12:21)
[2021-12-06] MEDS: hydrALAZINE HCL 50 MG TAB PO SCH ×2 (12:22→20:47)
--- NOTE | 2021-12-06 13:20 | NM ---
EXAMINATION TYPE: NM stress lexiscan cardiolite DATE OF EXAM: 12/06/2021 COMPARISON: NONE HISTORY: chest pain TECHNIQUE: After the intravenous administration of 9.77 mCi Tc 99m Sestamibi - Cardiolite resting SP ECT images acquired 55 minutes post injection. The patient received 0.4mg Lexiscan, 24.6 mCi Tc 99m Sestamibi - Stress images obtained [address] injection FINDINGS: Review of stress and rest SPECT images demonstrates decreased perfusion involving the anterior wall f ollowing stress imaging. Stress-induced ischemia is not excluded. Correlate clinically. Gated analysi s shows normal wall motion with an estimated left ventricular ejection fraction of 59 %. IMPRESSION: I cannot exclude stress-induced ischemia anterior wall.
--- NOTE | 2021-12-06 14:27 | P.CN ---
Psychiatric Consult - . Consult date: 12/06/21 Consult:: 12/06/21 13:49 IDENTIFYING DATA: This patient is a 81-year-old female currently lives alone in a condo's divorce has 3 kids. REASON FOR REFERRAL: Psychiatry was consulted for anxiety HISTORY OF PRESENT ILLNESS: The patient presented to the hospital for chest pain/discomfort, burning sensation mainly related to eating. Patient was reporting a decrease in her appetite. She is also reporting fatigue in the ER. The patient was admitted medically. Patient apparently was reporting depressed mood since 2019 and recently got started on Zoloft for the past 2 weeks by her primary care physician. Patient states that it has not been helping her much at this time. She claims that she does have some poor discomfort or anxiety and claims it is mainly related to her after she eats. She states that nothing has been helping with it. She claims that he mainly starts in the morning and then improves later on in the daytime. She claims that she is sleeping on and off. Having naps during the day. She states her appetite is poor. She claims that she is not having any suicidal thoughts at this time no plan . At this time patient denies any suicidal or homical ideations, intent or plan. Patient denies any auditory, visual hallucinations and denies any paranoia or delusions. Patients admits to using no recreational drugs or cigarettes PAST PSYCHIATRIC HISTORY: Patient has a a history of depression. She is previou sly on Zoloft. Patient denies any previous psychiatric hospitalizations. Patient denies any psychiatric outpatient follow-up. Patient denies any history of suicide attempts in the past. Past Medical History: Cancer, Hyperlipidemia, Hypertension, Osteoarthritis (OA) ALLERGIES: as per EMR. CHEMICAL DEPENDENCY HISTORY: as per HPI. FAMILY PSYCHIATRIC/SUBSTANCE USE HISTORY: Claims that her father committed suicide SOCIAL HISTORY: Patient was born and raised in [place] and claims that she is , she lives in a condo. She states that she has 3 kids. 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 No legal history. MENTAL STATUS EXAM: General Appearance: Patient appears to be stated age is alert, attempts to cooperative. Appears restless at times. Patient appears to have fair hygiene and grooming wearing hospital gown with fair eye contact. Behavior: Patient is calmly lying in bed without any agitated behavior. Appears to be restless and uncomfortable at times. Speech: Patient's speech is fluent and nonpressured. Mood/Affect: Patient reports their mood is "depressed", affect is congruent Suicidality/Homicidality: Patient denies having any suicidal or homicidal ideation intent or plan. Perceptions: Patient denies any visual hallucinations and denies any auditory hallucinations Though content/process: There is no evidence of any delusional thought content and thought process is linear and goal-directed. [place] Memory and concentration: AOX3, grossly intact for the purposes of this session. Can spell "WORLD" backwards Judgment and insight: Fair IMPRESSIONS: Major depressive disorder, without psychotic features Anxiety disorder unspecified PLAN: -At this time patient DOES NOT meet criteria for inpatient psychiatric admission. voiding use of narcotics and GRAPHIC DESIGN ASSISTANT sedatives, limit anticholinergic medications when possible, frequent re-orientation, minimize use of restraints, open window shades during the day and close them at night] -Would recommend the following medication changes/additions: Discontinue Zoloft at this time, replaced with Cymbalta 30 mg daily at bedtime for mood/anxiety. Start Seroquel 25 mg for insomnia anxiety on mood management. -powder worker to provide patient with outpatient mental health/psychiatry resources for appropriate follow up upon discharge -Environmental Designer spoke with patient about substance abuse and the harmful effects on medical and mental health, patient verbally understood and agreed. -Communicated plan to patient's nurse -Will continue to follow along -Please contact with any questions. 12/06/21 14:21
[2021-12-06 14:35] VITALS: BMI 21.2
--- NOTE | 2021-12-06 17:38 | P.PN ---
Subjective Progress Note Date: 12/06/21 Principal diagnosis: chest pain Patient was seen and examined. No acute events overnight. Patient reports a sad mood. She denies any suicidal or homicidal intention. She denies any chest pain. She reports some abdominal bloating. She reports some tingling in her bilateral shoulder and neck. Objective - Vital Signs Vital signs: Vital Signs Temp 98.3 F 12/06/21 15:00 Pulse 58 L 12/06/21 15:00 Resp 16 12/06/21 15:00 BP 150/53 12/06/21 15:00 Pulse Ox 97 12/06/21 15:58 FiO2 Intake & Output 12/05/21 12/06/21 12/06/21 18:59 06:59 18:59 Intake Total 360 240 Balance 360 240 Weight 49.442 kg 49.442 kg Intake: Oral 360 240 Other: # Voids 1 - Exam General: [non toxic], [no distress], [appears at stated age] Derm: [warm], [dry] Head: [atraumatic], [normocephalic], [symmetric] Eyes: [EOMI], [no lid lag], [anicteric sclera] Mouth: [no lip lesion], [mucus membranes moist] Cardiovascular: [S1S2 reg], [no murmur], [positive posterior tibial pulse bilateral], Lungs: [CTA bilateral], [no rhonchi, no rales] , [no accessory muscle use] Ext: [no gross muscle atrophy], [no edema], [no contractures] Neuro: [no focal neuro deficits] Psych: [Alert], [oriented], [appropriate affect] - Labs CBC & Chem 7: 12/05/21 12:46 12/05/21 12:46 Labs: Abnormal Lab Results - Last 24 Hours (Table) 12/05/21 Range/Units 12:46 HDL Cholesterol 65.30 H (40.00-60.00) mg/dL Assessment and Plan Assessment: Assessment and plan Chest pain Anxiety and depression Elevated BUN Smoker Hypertension Dyslipidemia Insomnia History of breast cancer Patient presents for chest pain described as pressure-like in nature. Troponins trended and ACS ruled out. She has been given aspirin 325 mg by mouth. Te lemetry monitoring will be ordered. Cardiology will be consulted for further management of this patient. Echocardiogram shows borderline LVH. Stress test positive. Plans for cath tomorrow. Psychiatry consulted. Patient started on Cymbalta. She was given 1 L bolus for elevated BUN likely related to dehydration. Encourage hydration by mouth. She has been offered a nicotine patch but refuses. Hydralazine and amlodipine restarted for history of hypertension. Monitor vitals, adjust medication if necessary. Restart simvastatin for dyslipidemia. Restart trazodone for history of insomnia. DVT prophylaxis: [Heparin] Discussed with: [Patient] Anticipated discharge: [1-2 days] Anticipated discharge place: [Home] A total of [35] minutes was spent on the care of this complex patient more than 50% of the time was spent in counseling and care coordination. Patient names her son and daughter decision maker if she can't make decisions for herself. Patient would like to be full code.
[2021-12-06] MEDS: CYPROHEPTADINE 4 MG TABLET PO SCH (20:48)
[2021-12-06] MEDS: MELATONIN 3 MG TABLET PO SCH (20:48)
[2021-12-06] MEDS ORDERED: DULoxetine HCL 30 MG CAPSULE.DR PO SCH (21:00)
[2021-12-06] MEDS ORDERED: QUEtiapine 25 MG TAB PO SCH (21:00)
[2021-12-07] MEDS ORDERED: HEPARIN SODIUM,PORCINE 10,000 UNIT in SODIUM CHLORIDE 0.9% 1,000 ML IRRIGATION PRN (07:00)
[2021-12-07] MEDS ORDERED: HEPARIN SODIUM,PORCINE 2,500 UNIT in SODIUM CHLORIDE 0.9% 250 ML IRRIGATION PRN (07:00)
[2021-12-07] MEDS ORDERED: ATORVASTATIN 80 MG TAB PO STA (07:11)
[2021-12-07] MEDS ORDERED: SODIUM CHLORIDE 0.9% 1,000 ML in EMPTY BAG 1 BAG IV SCH ×2 (07:15→11:15)
[2021-12-07 07:49] VITALS: RESP 16; TEMP 97.7
[2021-12-07] MEDS: ATORVASTATIN 10 MG TAB PO SCH (08:09)
[2021-12-07] MEDS: ASPIRIN 81 MG PO SCH (08:15)
[2021-12-07] MEDS: hydrALAZINE HCL 50 MG TAB PO SCH (08:15)
[2021-12-07] MEDS: HEPARIN SODIUM,PORCINE/PF 5,000 UNIT/0.5 ML SYRINGE SQ SCH (08:15)
[2021-12-07] MEDS: amLODIPine 5 MG TAB PO SCH (08:15)
[2021-12-07 08:59] LABS: Basophils # (A) 0.1 k/uL (0-0.2); Basophils % (A) 1 %; Eosinophils % (A) 0 %; HCT 37.3 % (34.0-46.0); HGB 12.1 gm/dL (11.4-16.0); Lymphocytes # (A) 1.7 k/uL (1.0-4.8); Lymphocytes % (A) 24 %; MCH 30.4 pg (25.0-35.0); MCHC 32.3 g/dL (31.0-37.0); MCV 94.1 fL (80.0-100.0); Mean Platelet Volume 7.5; Monocytes # (A) 0.3 k/uL (0-1.0); Monocytes % (A) 5 %; Neutrophils # (A) 4.6 k/uL (1.3-7.7); Neutrophils % (A) 68 %; Platelet Count 259 k/uL (150-450); RBC 3.97 m/uL (3.80-5.40); WBC 6.8 k/uL (3.8-10.6)
[2021-12-07] MEDS ORDERED: VERAPAMIL 2.5 MG/ML 2 ML AMP ONE (09:00)
[2021-12-07] MEDS ORDERED: fentaNYL (PF) 50 MCG/ML 2 ML AMP ONE (09:27)
[2021-12-07] MEDS ORDERED: fentaNYL (PF) 50 MCG/ML 2 ML AMP IV ONE (09:54)
[2021-12-07] MEDS ORDERED: LIDOCAINE 1% PF 10 MG/ML (5 ML AMP) SQ ONE (09:57)
[2021-12-07] MEDS ORDERED: HEPARIN SODIUM 1,000 UN/ML (10ML VL) ONE (09:57)
[2021-12-07] MEDS ORDERED: VERAPAMIL SYRINGE (5 MG/10 ML) INTRAARTER ONE (10:03)
[2021-12-07] MEDS ORDERED: HEPARIN SODIUM 1,000 UN/ML (10ML VL) IV ONE ×2 (10:06→10:15)
[2021-12-07] MEDS ORDERED: CLOPIDOGREL 75 MG TAB ONE (10:14)
[2021-12-07] MEDS ORDERED: CLOPIDOGREL 75 MG TAB PO ONE (10:18)
[2021-12-07] MEDS ORDERED: MIDAZOLAM 2 MG/2 ML VIAL IV ONE (10:22)
[2021-12-07] MEDS ORDERED: IOPAMIDOL-370 125ML BTL INJ ONE (10:33)
[2021-12-07] MEDS ORDERED: NITROGLYCERIN 1000MCG/10ML SYRINGE INTRACORON ONE (10:34)
[2021-12-07] MEDS ORDERED: IOPAMIDOL-370 100ML BTL INJ ONE (10:44)
[2021-12-07] MEDS ORDERED: IV FLUID CONTINUATION 950 ML IV ONE (10:44)
[2021-12-07] MEDS ORDERED: MAG HYDROX/AL HYDROX/SIMETH 30 ML CUP PO PRN (11:02)
[2021-12-07] MEDS ORDERED: RX INFO: IV CONTRAST WAS GIVEN 1 EACH MISC MISCELLANE PRN (11:02)
[2021-12-07] MEDS ORDERED: ZOLPIDEM 5 MG TAB PO PRN (11:02)
[2021-12-07] MEDS ORDERED: NITROGLYCERIN SL TABS 0.4 MG TAB SUBLINGUAL PRN (11:02)
[2021-12-07] MEDS ORDERED: ATROPINE SULFATE 0.1 MG/ML 10ML SYRINGE IV PRN (11:02)
--- NOTE | 2021-12-07 11:12 | P.CARDCATH ---
Date of Procedure: 12/07/21 Description of Procedure: Cardiac Catheterization: The patient is an 81-year-old female with known history of hypertension and hyperlipidemia who presented with chest burning. Her enzymes were unremarkable but her MPI showed evidence of anterior wall ischemia Recommendations were made regarding cardiac catheterization, the risks and the complications were discussed with the patient who is in full understanding and agreement. Procedure Description: Patient was brought to open hearth laborer in fasting semi-sedated state after receiving Fentanyl and Benadryl achieiving moderate conscious sedated state. Using Xylocaine Anesthesia and Seldinger technique, a 6-Micronesian sheath was introduced in the right radial artery . Subsequently, selective coronary angiography was performed using a 5-Micronesian 3.5 bend Jean Marie catheter. Multiple views of the coronary artery including hemiaxial views were obtained. The 5-Micronesian pigtail catheter was used to cross the aortic valve and LVEDP was calculated. Following that, catheter and sheath were removed. Following the a 6-Micronesian CLS 3.5 guiding catheter was introduced the system, after cannulizing the left main 0.014 BMW J-wire was introduced and positioned in the distal diagonal, another wire in the distal LAD, following a 2.5 by 12 mm Treck was advanced and one inflation at 8 adrienne was done, after removing the balloon a 2.5 x 18 mm Xience braden point stent advanced, deployed at 16 adrienne. After removing the balloon and the diagonal branch wire a 3.25 x 8 mm NC Treck was advanced and one inflation prior to the bifurcation was done at 10 adrienne. Following that the balloon and the wire were withdrawn back into getting catheter images were obtained and revealed stable successful stenting. The balloon, the wire and the guiding catheter were removed. Hemostasis was obtained with deployment of TR band . There was no immediate complication. Patient was returned to room in stable condition. Of note, the patient received a total of 4500 units of intravenous heparin as well as intra-arterial verapamil. And loading dose of Plavix. Her ACT was followed. She had no si gnificant chest pain or EKG changes. There was no immediate complications. Findings: Left main: This is a short sized vessel, bifurcating into LAD and left circumflex, left main has no high-grade stenosis. LAD: This is a large size vessel, reaching to the apex, tortuous, giving rise to a large diagonal branch. Following the takeoff of the diagonal branch there is an eccentric 80% stenosis Left circumflex: This is a moderate nondominant vessel giving rise to one obtuse marginal branch. The left circumflex has no evidence of high-grade stenosis RCA: This is a large dominant vessel, bifurcating into a large PDA and PLV, reaching to the inferoapical wall. The RCA has no high-grade stenosis Left Ventriculogram: Not performed Hemodynamics: There was no gradient across the aortic valve, LVEDP 14-16 mmHg Conclusion: 1. 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 Right dominance 3. No evidence of obstructive disease in the RCA and the left circumflex 4. Successful stenting of the mid LAD with reduction of stenosis of 80% to 0%. Recommendations: The patient will be continued on Plavix and aspirin for 6 months without any disruption with aggressive coronary risks modifications. The findings and recommendations were discussed with the patient and her family, they are in full understanding and agreement. Duration of sedation is 51 minutes.
[2021-12-07 11:54] VITALS: BP 132/47; PULSE 50
--- NOTE | 2021-12-07 13:38 | P.PN ---
Progress Note - Text Progress Note Date: 12/07/21 Interval History: Patient was seen today for psychiatric follow-up regarding patient's depression and anxiety. Patient was seen today at the bedside and claims that she is doing "a lot better". She is denying any depression or anxiety today. She states that the Seroquel last night made her feel "a little bit off" however does state that she was able to sleep about 3 or 4 hours last night. She was agreeable to have the dose reduced. She claims at the heart catheterization and stenting we nt well today. At this time patient denies any suicidal or homical ideations, intent or plan. Patient denies any auditory, visual hallucinations and denies any paranoia or delusions. Patient denies any side effects from the medications and has been compliant with meds. Mental Status Exam: General Appearance: Patient appears to be stated age is alert, attempts to cooperative. Patient appears to have fair hygiene and grooming wearing hospital gown with fair eye contact. Behavior: Patient is calmly lying in bed without any agitated behavior. Speech: Patient's speech is fluent and nonpressured. Mood/Affect: Patient reports their mood is "ok", affect is congruent Suicidality/Homicidality: Patient denies having any suicidal or homicidal ideation intent or plan. Perceptions: Patient denies any visual hallucinations and denies any auditory hallucinations Though content/process: There is no evidence of any delusional thought content and thought process is linear and goal-directed. [place] Memory and concentration: AOX3, grossly intact for the purposes of this session Judgment and insight: Fair IMPRESSIONS: Major depressive disorder, without psychotic features Anxiety disorder unspecified PLAN: -At this time patient DOES NOT meet criteria for inpatient psychiatric admission. 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 Decrease Seroquel 12.5 mg for insomnia anxiety on mood -night worker to provide patient with outpatient mental health/psychiatry resources for appropriate follow up upon discharge -Hide Cleaner spoke with patient about substance abuse and the harmful effects on medical and mental health, patient verbally understood and agreed. -Communicated plan to patient's nurse -At this time psychiatry will sign off. -Please contact with any questions.
--- NOTE | 2021-12-07 13:41 | P.DS ---
Providers Date of admission: 12/05/21 14:34 Expected date of discharge: 12/07/21 Attending physician: Greta Davis MD Consults: 12/05/21 14:32 Consult Physician Routine Consulting Provider: Akil Quezada Consult Reason/Comments: anxiety Do you want consulting provider notified?: Yes 12/05/21 14:33 Consult Physician Urgent Consulting Provider: Michelle Mccoy Consult Reason/Comments: cp Do you want consulting provider notified?: Yes Primary care physician: Eliseo Coulter [facility] Course: Patient is an 81-year-old female with PMH of hypertension, dyslipidemia, insomnia, history of left breast cancer presents the ED for chest pressure. She reports chest pressure that started this morning. She reports no strenuous activity. Patient states that she was eating a slice of bread when it happened. She reports tingling on both sides of her neck. She denies any diaphoresis or radiation of pain. She actually denies any chest pain. She denies any family h istory of heart disease. She denies any headache, lower extremity edema, nausea or vomiting, fever or chills, shortness of breath, palpitations, changes in urination or bowel habits. No changes in appetite or weight. She denies any dizziness, numbness/weakness setting of the extremities. In the ED, her vital signs are stable. CBC was unremarkable. Coagulation panel was negative. CMP showed BUN of 23 and glucose of 27. Troponin was less than 0.012 with EKG showing sinus rhythm with sinus arrhythmia and ST changes. Chest x-ray show cardiomegaly. Patient is admitted under observation status for chest pain, rule out acute coronary syndrome and cardiology evaluation. Troponins were trended and ACS was ruled out. Echocardiogram was ordered which showed borderline LVH. Cardiology was consulted and recommended a stress test. Stress test was positive. Patient was scheduled for cardiac catheterization and stent was placed in the LAD. She was given a 1 L bolus for elevated BUN likely related to dehydration. Psychiatry was consulted for treatment of anxiety and depression. Psychiatry recommended discontinuing Zoloft and starting Cymbalta. She was continued on trazodone for history of insomnia. General: [non toxic], [no distress], [appears at stated age] Derm: [warm], [dry] Head: [atraumatic], [normocephalic], [symmetric] Eyes: [EOMI], [no lid lag], [anicteric sclera] Mouth: [no lip lesion], [mucus membranes moist] Cardiovascular: [S1S2 reg], [no murmur], [positive posterior tibial pulse bilateral], Lungs: [CTA bilateral], [no rhonchi, no rales] , [no accessory muscle use] Ext: [no gross muscle atrophy], [no edema], [no contractures] Neuro: [no focal neuro deficits] Psych: [Alert], [oriented], [appropriate affect] Discharge diagnosis: Chest pain with CAD Anxiety and depression Elevated BUN Smoker Hypertension Dyslipidemia Insomnia History of breast cancer This complex are shush of about 35 minutes to complete. Pertinent Studies: CXR, EKG, Echo, Stress test Procedures: Cardiac cath Patient Condition at Discharge: Stable Plan - Discharge Summary Discharge Rx Participant: No New Discharge Prescriptions: New DULoxetine HCL [Cymbalta] 30 mg PO HS #30 cap QUEtiapine [SEROquel] 12.5 mg PO HS #30 tab Aspirin 81 mg PO DAILY #90 tab Atorvastatin [Lipitor] 40 mg PO DAILY #90 tab Nitroglycerin Sl Tabs [Nitrostat] 0.4 mg SUBLINGUAL Q5M PRN #25 tab PRN Reason: Chest Pain Clopidogrel [Plavix] 75 mg PO DAILY #90 tab Nitroglycerin Sl Tabs [Nitrostat] 0.4 mg SUBLINGUAL Q5M PRN tab PRN Reason: Chest Pain Continue amLODIPine [Norvasc] 5 mg PO BID #60 tab Cholecalciferol [Vitamin D3 (25 Mcg = 1000 Iu)] 50 mcg PO DAILY hydrALAZINE HCL [Apresoline] 50 mg PO BID Albuterol Sulfate [Ventolin HFA] 2 puff INHALATION RT-QID PRN PRN Reason: Shortness Of Breath Ascorbic Acid [Vitamin C] 1,000 mg PO DAILY Cyproheptadine [Cyproheptadine HCl] 4 mg PO HS Discontinued Sertraline [Zoloft] 50 mg PO DAILY Simvastatin 10 mg PO DAILY traZODone HCL [Desyrel] 25 mg PO HS Discharge Medication List amLODIPine [Norvasc] 5 mg PO BID #60 tab 04/28/15 [Rx] Albuterol Sulfate [Ventolin HFA] 2 puff INHALATION RT-QID PRN 12/05/21 [History] Ascorbic Acid [Vitamin C] 1,000 mg PO DAILY 12/05/21 [History] Cholecalciferol [Vitamin D3 (25 Mcg = 1000 Iu)] 50 mcg PO DAILY 12/05/21 [History] Cyproheptadine [Cyproheptadine HCl] 4 mg PO HS 12/05/21 [History] hydrALAZINE HCL [Apresoline] 50 mg PO BID 12/05/21 [History] Aspirin 81 mg PO DAILY #90 tab 12/07/21 [Rx] Atorvastatin [Lipitor] 40 mg PO DAILY #90 tab 12/07/21 [Rx] Clopidogrel [Plavix] 75 mg PO DAILY #90 tab 12/07/21 [Rx] DULoxetine HCL [Cymbalta] 30 mg PO HS #30 cap 12/07/21 [Rx] Nitroglycerin Sl Tabs [Nitrostat] 0.4 mg SUBLINGUAL Q5M PRN tab 12/07/21 [Rx] Nitroglycerin Sl Tabs [Nitrostat] 0.4 mg SUBLINGUAL Q5M PRN #25 tab 12/07/21 [Rx] QUEtiapine [SEROquel] 12.5 mg PO HS #30 tab 12/07/21 [Rx] Follow up Appointment(s)/Referral(s): Michelle Mccoy MD [STAFF PHYSICIAN] - 1 Week Eliseo Haas DO [Primary Care Provider] - 1-2 days Patient Instructions/Handouts: After Radial Heart Catheterization (GEN) Activity/Diet/Wound Care/Special Instructions: Cardiology Instructions After Cardiac Catheterization with Stent Placement: 1. Aspirin as anti-platelet therapy - Aspirin lessens the chance of heart attack and stroke. It helps prevent blood clots from forming, allowing the blood to flow more easily. Each day, you will t radha one 81 mg (non-enteric coated) tablet daily. You will be taking aspirin as a lifelong medication. Do not stop unless instructed by your doctor. 2. Anti-platelet Therapy. -In addition to aspirin, you will take ONE of the following anti-platelet medications daily. This will help prevent a clot from forming in your stent: Plavix (clopidogrel) -You will need to take your anti-platelet medicine every day for 12 months -Please consult your heart doctor before you stop this medicine. -They may want you to continue for a longer period of time. 3. Statins -A statin medication lowers cholesterol levels in the blood. This helps slow the progression of heart disease. - Please take your statin medication as prescribed by your doctor. -You may be taking one of the following statins: Lipitor (atorvastatin) Other Medications: -Continue to take your amlodipine and hydralazine for your blood pressure Do not stop taking these medicines without talking to your doctor. -Take all other medicines as directed by your doctor. Do not take any extra aspirin or ibuprofen. They can increase your risk of bleeding. Many gfot-hzd-sadbzvz drugs contain aspirin. If you are unsure about what the drug contains, check with your pharmacist before taking it. -For mild discomfort, you may take plain Tylenol (acetaminophen). Follow dose directions, but do not take more than 4,000 mg of acetaminophen in 24 hours. Contact your doctor right away or go to the nearest hospital Emergency Room if you have: -Severe angina or chest pain. (This may be a sign of a problem with your stent.) -Excessive bruising, blood in urine/stool or black tarry stools. Healthy LifeStyle It is important to keep a heart healthy lifestyle. This can improve your long- term health and decrease your risk for heart attacks. -Quitting tobacco: the most important thing you can do to protect your health. -Managing your blood cholesterol, blood pressure, weight, and stress. -The importance of regular exercise. -Heart Healthy Diet: Include more plants in your diet. Eat lots of fresh vegetables and fresh fruits. Eat good fats: plant based oils, avocado, nuts, beans, legumes. Eat more seafood. Limit Meat. Switch to whole grains. 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
[2021-12-07] MEDS ORDERED: MAG HYDROX/AL HYDROX/SIMETH 30 ML, HYOSCYAMINE ELIXIR 10 ML, LIDOCAINE VISCOUS 2% 10 ML PO ONE ×3 (14:12)
[2021-12-07] MEDS ORDERED: QUEtiapine 25 MG TAB PO SCH (21:00)
[2021-12-08] MEDS ORDERED: ASPIRIN 81 MG PO SCH (09:00)
[2021-12-08] MEDS ORDERED: CLOPIDOGREL 75 MG TAB PO SCH (09:00)
[2021-12-08] MEDS ORDERED: ATORVASTATIN 40 MG TAB PO SCH (09:00)
[2021-12-08 13:22] LABS: African American GFR (CKD) 69.5 (60.0-200.0); Anion Gap 19.5 mmol/L (10.00-18.00); BUN/Creat Ratio 26.44 Ratio (12.00-20.00); Blood Urea Nitrogen 23.8 mg/dL (9.0-27.0); Carbon Dioxide 17.5 mmol/L (20.0-27.5); Potassium 3.9 mmol/L (3.5-5.5)
== END 2021-12-07 17:43 | disposition home or self-care (01) ==
LOC: EC 12:11 → 6NMEDSUR 14:34
PROVIDERS: ADMIT Family Medicine; ATTEND Family Medicine
DX: I25.110 Atherosclerotic heart disease of native coronary artery with unstable angina pectoris (principal); I77.1 Stricture of artery; I08.1 Rheumatic disorders of both mitral and tricuspid valves; E86.0 Dehydration; R94.39 Abnormal result of other cardiovascular function study; I51.7 Cardiomegaly; I10 Essential (primary) hypertension; E78.5 Hyperlipidemia, unspecified; Z85.3 Personal history of malignant neoplasm of breast; F17.210 Nicotine dependence, cigarettes, uncomplicated; G47.00 Insomnia, unspecified; F32.9 Major depressive disorder, single episode, unspecified; F41.9 Anxiety disorder, unspecified; J44.9 Chronic obstructive pulmonary disease, unspecified; M19.90 Unspecified osteoarthritis, unspecified site; Z90.12 Acquired absence of left breast and nipple; Z98.890 Other specified postprocedural states; Z87.01 Personal history of pneumonia (recurrent); Z92.21 Personal history of antineoplastic chemotherapy; Z86.11 Personal history of tuberculosis; Z80.9 Family history of malignant neoplasm, unspecified; Z83.3 Family history of diabetes mellitus; Z81.8 Family history of other mental and behavioral disorders; Z79.899 Other long term (current) drug therapy
CPT/HCPCS: 96372 ×3; 96374; 99285; 36415; 93005; 93017; 93306; 93458; 80061; 80053; 80048; 84443; 82150; 83690; 83735; 84484; 85025 ×2; 85610; 85730; 71046; 78452; G0378 ×3; C9600; C1769 ×5; C1887 ×2; C1894; C1725 ×2; C1874; A9500; J2250; J2270; J2001; J3010; J1644 ×4; J2785; Q9967 ×2

== ENCOUNTER → 2021-12-21 | Outpatient (CLI) | payer MEDICARE ==
--- NOTE | 2021-12-23 09:12 | FL ---
EXAMINATION TYPE: FL UGI air DATE OF EXAM: 12/21/2021 COMPARISON: None HISTORY: Epigastric pain nausea constipation TECHNIQUE: A double air contrast UGI study is performed. FINDINGS: [place] fluoroscopy time: 1 minute 29 seconds. Images: 116. Esophagus establish normal caliber and has normal contour to the gastroesophageal junction. Gastroeso phageal junction opens to normal caliber. No suspicious intraluminal or extramural defects are eviden t. There may be some mild persistence of the cricopharyngeus muscle during swallowing. A few tertiary contractions are evident. Extensive reflux was evident during the examination to the level of the clavicles. Fundus body and antrum of the stomach appear normal. No intraluminal or extramural defects evident. V mendy minimal images are normally positioned duodenal cap and sweep. IMPRESSIONS: 1. Gastroesophageal reflux level of clavicles. Several episodes were observed during the exam. 2. Some mild presbyesophagus may be present. 3. Stomach and duodenum appear normal
== END | disposition home or self-care (01) ==
LOC: RADUSWWP 07:57
PROVIDERS: ATTEND Internal Medicine Gastroenterology
DX: K21.9 Gastro-esophageal reflux disease without esophagitis (principal)
CPT/HCPCS: 74246

== ENCOUNTER → 2022-02-26 | Outpatient (CLI) | payer MEDICARE ==
[2022-02-26 20:33] LABS: ALT 12 U/L (8-44); AST 16 U/L (13-35); African American GFR (CKD) 94.7 (60.0-200.0); Albumin 4.1 g/dL (3.8-4.9); Albumin/Globulin Ratio 1.34 (1.60-3.17); Alkaline Phosphatase 67 U/L (41-126); BUN/Creat Ratio 22.67 Ratio (12.00-20.00); Blood Urea Nitrogen 15.6 mg/dL (9.0-27.0); Calcium 9.3 mg/dL (8.7-10.3); Carbon Dioxide 26.2 mmol/L (20.0-27.5); Chloride 109 mmol/L (96-109); Globulin 3.1 g/dL (1.6-3.3); Glucose 105 mg/dL (70-110); LDL Cholesterol,Calculated 70.7 mg/dL (0.0-131.0); Non-African American GFR(CKD) 81.7 (60.0-200.0); Potassium 3.6 mmol/L (3.5-5.5); Sodium 144 mmol/L (135-145); Total Protein 7.2 g/dL (6.2-8.2); VLDL Calculation 16.84 mg/dL (5.00-40.00)
== END | disposition home or self-care (01) ==
LOC: LABWHC1 11:49
PROVIDERS: ATTEND Internal Medicine Interventional Cardiology
DX: E78.2 Mixed hyperlipidemia (principal)
CPT/HCPCS: 36415; 80053; 80061

== ENCOUNTER → 2022-03-07 | Outpatient (CLI) | payer MEDICARE ==
--- NOTE | 2022-03-07 14:19 | CT ---
EXAMINATION: CTA ABDOMEN AND PELVIS WITH IV CONTRAST DATE OF EXAMINATION: 03/07/2022. COMPARISON: None available. INDICATION: Epigastric pain. PROCEDURE: Axial CT of the abdomen and pelvis was performed with contrast and sagittal and coronal r eformatted images were performed. 100 mL of Isovue-[address] dose lowering reggie hniques were used, to include: automated exposure control, adjustment for patient size, and/or use of iterative reconstruction. Intensity projection reformats were also performed as well as 3-D reformat s on an independent workstation. FINDINGS: LOWER CHEST : The visualized lung bases are clear. There are no pleural or pericardial effusions. T here is a partially visualized left breast implant. ABDOMEN: Liver and Biliary system: Normal. Adrenal glands: Normal. Kidneys and ureters: There are 2 and 5 mm nonobstructing stones in the interpolar region of the left kidney. Some mild renal vascular calcification is otherwise seen. There is a nonobstructing 1.[address] one in the inferior pole of the right kidney. No ureteral stones or hydronephrosis. Spleen: Normal. Pancreas: Normal. Gallbladder: Normal. Lymph nodes, Peritoneum and mesentery: There is no mesenteric or retroperitoneal lymphadenopathy. Gastrointestinal tract: There are no dilated loops of bowel or free intraperitoneal air. Appendix is normal. There is moderate to significant diffuse colonic diverticulosis without evidence of diver ticulitis. Aorta/IVC: There is opyc-do-pjitxnlg vascular calcification and plaque seen throughout the abdomina l aorta without evidence of aneurysmal dilation or dissection. There is mild plaque and stenosis of t he origin of the superior mesenteric and celiac artery axes, however the remainder of the vessels beckie ears patent with minimal atherosclerotic changes and no significant stenosis otherwise noted througho ut the remainder of the vessels. The MEIR appears patent. IVC normal. Abdominal wall: Normal. PELVIS: Fluid: There is no free fluid in the pelvis. Lymph Nodes: There is no pelvic or inguinal lymphadenopathy.. Urinary bladder: Normal. BONES: There are no osseous destructive lesions.. ADDITIONAL SIGNIFICANT FINDINGS: None. IMPRESSION: 1. No acute process seen within the abdomen or pelvis. 2. Mild atherosclerotic changes without significant stenoses. 3. Diverticulosis without evidence of diverticulitis. 4. Nonobstructing bilateral renal stones.
== END | disposition home or self-care (01) ==
LOC: RADCTMAIN 12:29
PROVIDERS: ATTEND Internal Medicine Gastroenterology
DX: N20.0 Calculus of kidney (principal); K57.30 Diverticulosis of large intestine without perforation or abscess without bleeding; I70.209 Unspecified atherosclerosis of native arteries of extremities, unspecified extremity
CPT/HCPCS: 82565; 84520; 36415; 74174; Q9967

== ENCOUNTER → 2022-03-18 | Outpatient (CLI) | payer MEDICARE ==
--- NOTE | 2022-03-18 14:42 | CT ---
EXAMINATION TYPE: CT sinus wo con DATE OF EXAM: 03/18/2022 COMPARISON: None HISTORY: CHRONIC SINUSITIS CT DLP: 622.[address] of the paranasal sinuses was performed in the axial and coronal planes. Bone and soft tissue settings are submitted. Moderate opacification right maxillary sinus with intrasinus mucous retention cyst or large polyp. Th ere is obstruction of the right ostiomeatal unit. Mild mucosal thickening left maxillary sinus with p artial obstruction at the left ostiomeatal unit. There is a moderate opacification of the ethmoid air cells. Mild mucosal thickening frontal sinuses. The sphenoid sinus appears to be well-aerated. There is nasal septal deviation from left to right. Bilateral middle turbinate merle bullosa are noted le ft greater than right. No bony destructive changes are seen within the field of view. IMPRESSION: Chronic sinusitis as noted. Large mucous retention cyst or polyp right maxillary sinus me asuring 3.2 x 3.1 cm.
== END | disposition home or self-care (01) ==
LOC: RADCTMAIN 14:06
PROVIDERS: ATTEND Otolaryngology
DX: J32.9 Chronic sinusitis, unspecified (principal)
CPT/HCPCS: 70486

== ENCOUNTER → 2022-09-06 | Outpatient (CLI) | payer MEDICARE ==
[2022-09-06 15:45] LABS: ALT 15 U/L (8-44); AST 19 U/L (13-35); Chol/HDL Ratio 2.32 Ratio; LDL Cholesterol,Calculated 70.9 mg/dL (0.0-131.0)
== END | disposition home or self-care (01) ==
LOC: LABWHC1 09:30
PROVIDERS: ATTEND Internal Medicine Interventional Cardiology
DX: E78.2 Mixed hyperlipidemia (principal)
CPT/HCPCS: 36415; 80061; 84450; 84460

== ENCOUNTER 2022-10-25 06:12 | Day surgery (SDC) | payer MEDICARE ==
[2022-10-23 15:55] VITALS: BMI 20.4
[~2022-10-25 06:12] MED LIST changes: -DEXAMETHASONE SOD PHOSPHATE 10 MG/ML 1 ML VIAL IV ONE; -MIDAZOLAM 2 MG/2 ML VIAL IV PRN; -ONDANSETRON 4 MG/2 ML VIAL IVP ONE; -ceFAZolin 1,000 MG in DEXTROSE/WATER 1 50ML.BAG IVPB ONE
[2022-10-25 06:53] VITALS: RESP 16; TEMP 97
[2022-10-25] MEDS ORDERED: PROPOFOL 10 MG/ML 20 ML VIAL IV ONE (07:25)
--- NOTE | 2022-10-25 07:48 | P.PCN ---
Date of Procedure: 10/25/22 Procedure(s) Performed: Brief history: Patient is a pleasant 83-year-old white female scheduled for an elective upper endoscopy as well as colonoscopy as a part of evaluation of chronic epigastric pain and screening for colon cancer Procedure performed: Esophagogastroduodenoscopy with biopsy Colonoscopy Preoperative diagnosis: Chronic epigastric pain Screening for colon cancer Anesthesia: MAC Procedure: After informed consent was obtained from the patient was brought into the endoscopy unit and IV sedation was administered by anesthesia under continuous monitoring. Initially upper endoscopy was done. The Olympus GF 160 video endoscope was inserted inserted into the mouth and esophagus intubated without any difficulty and was gradually advanced into the stomach and duodenum and carefully examined. The bulb and second part of the duodenum appeared normal. The scope was then withdrawn into the stomach adequately insufflated with air and upon careful examination the antrum and body, cardia and fundus appeared normal. The scope was then withdrawn into the esophagus. The GE junction was located at 40 cm to the incisors. It appeared regular with no erythema erosions or ulcerations. Rest of the esophagus appeared normal. Patient tolerated the procedure well. At this time the patient continued to remain sedation. Initial digital rectal examination was normal. Olympus CF 160 video colonoscope was then inserted into the rectum and gradually advanced to the cecum without any difficulty. Careful examination was performed as the scope was gradually being withdrawn. The prep was excellent. The cecum, ascending colon, transverse colon, descending colon, sigmoid colon and rectum appeared normal. Diffuse scattered diverticulosis seen. Retroflexion was performed in the rectum and no lesions were noted. Patient tolerated the procedure well. Impression: 1. Upper endoscopy revealed mild antral gastritis small hiatal hernia 2. Colonoscopy revealed diffuse scattered diverticulosis but no evidence of colorectal neoplasia Recommendations: Findings of this examination were discussed with the patient as well as her family. She was advised to follow with the biopsy results. Her symptoms could be extended basis of gastroesophageal reflux and hence recommend omeprazole 20 mg daily and follow antireflux measures. Continue with a high-fiber diet.
[2022-10-25 08:13] VITALS: BP 156/79; PULSE 63
== END 2022-10-25 08:41 | disposition home or self-care (01) ==
LOC: ORWHC2ENDO 06:12
PROVIDERS: ATTEND Internal Medicine Gastroenterology
DX: Z12.11 Encounter for screening for malignant neoplasm of colon (principal); K29.50 Unspecified chronic gastritis without bleeding; K21.00 Gastro-esophageal reflux disease with esophagitis, without bleeding; G89.29 Other chronic pain; K57.30 Diverticulosis of large intestine without perforation or abscess without bleeding; K44.9 Diaphragmatic hernia without obstruction or gangrene; I10 Essential (primary) hypertension; E78.5 Hyperlipidemia, unspecified; J44.9 Chronic obstructive pulmonary disease, unspecified; F17.200 Nicotine dependence, unspecified, uncomplicated; Z79.82 Long term (current) use of aspirin; Z79.899 Other long term (current) drug therapy
CPT/HCPCS: 88305; 43239; J2704; G0121

== ENCOUNTER → 2023-09-15 | Outpatient (CLI) | payer MEDICARE ==
[2023-09-15 15:44] LABS: ALT 17 U/L (8-44); AST 21 U/L (13-35); LDL Cholesterol,Calculated 83.7 mg/dL (0.0-131.0)
== END | disposition home or self-care (01) ==
LOC: LABWHC1 08:58
PROVIDERS: ATTEND Internal Medicine Interventional Cardiology
DX: E78.2 Mixed hyperlipidemia (principal)
CPT/HCPCS: 36415; 80061; 84450; 84460

== ENCOUNTER → 2023-11-14 | Outpatient (CLI) | payer MEDICARE | END | disposition home or self-care (01) | LOC: LABWHC1 11:11 | PROVIDERS: ATTEND Family Medicine | DX: D64.9 Anemia, unspecified (principal) ==

== ENCOUNTER → 2023-12-15 | Outpatient (CLI) | payer MEDICARE ==
[2023-12-15 19:05] LABS: Basophils # (A) 0.08 X 10*3/uL (0.00-0.10); Eosinophils # (A) 0.34 X 10*3/uL (0.04-0.35); Eosinophils % (A) 4.1 %; HCT 25.3 % (37.2-46.3); HGB 8.1 g/dL (12.0-15.0); Lymphocytes # (A) 2.21 X 10*3/uL (0.90-5.00); Lymphocytes % (A) 26.4 %; MCH 30.1 pg (27.0-32.0); MCV 94.1 FL (80.0-97.0); Mean Platelet Volume 10.7 FL (9.5-12.2); Monocytes # (A) 0.69 X 10*3/uL (0.20-1.00); Monocytes % (A) 8.2 %; NRBC Per 100 WBC 0 X 10*3/uL (0.00-0.01); Neutrophils # (A) 5.03 X 10*3/uL (1.80-7.70); Neutrophils % (A) 60.1 %; Platelet Count 305 X 10*3/uL (140-440); RBC 2.69 X 10*6/uL (4.10-5.20); RDW 15.6 % (11.5-14.5); WBC 8.37 X 10*3/uL (4.50-10.00)
== END | disposition home or self-care (01) ==
LOC: LABWHC1 15:01
PROVIDERS: ATTEND Nurse Practitioner Family
DX: R19.5 Other fecal abnormalities (principal)
CPT/HCPCS: 36415; 85025

== ENCOUNTER → 2023-12-15 | Day surgery (SDC) | payer MEDICARE ==
[2023-12-15] MEDS: SIMETHICONE 40 MG/0.6 ML DROPS 2,000 MG/30 ML BOTTLE PO ONE (06:43)
[2023-12-15 06:58] VITALS: BP 220/93; PULSE 82; RESP 18; TEMP 96.7
== END ==
LOC: ORWHC2ENDO 06:17
PROVIDERS: ATTEND Internal Medicine Gastroenterology
DX: D50.9 Iron deficiency anemia, unspecified (principal); R19.5 Other fecal abnormalities; Z79.899 Other long term (current) drug therapy
CPT/HCPCS: 91110

== ENCOUNTER → 2023-12-25 | Outpatient (CLI) | payer MEDICARE ==
[2023-12-25 18:21] LABS: Basophils # (A) 0.09 X 10*3/uL (0.00-0.10); Eosinophils # (A) 0.36 X 10*3/uL (0.04-0.35); Eosinophils % (A) 3.9 %; HCT 26.6 % (37.2-46.3); HGB 8.3 g/dL (12.0-15.0); Lymphocytes # (A) 2.31 X 10*3/uL (0.90-5.00); Lymphocytes % (A) 24.8 %; MCH 29.1 pg (27.0-32.0); MCHC 31.2 g/dL (32.0-37.0); MCV 93.3 FL (80.0-97.0); Mean Platelet Volume 10.3 FL (9.5-12.2); Monocytes # (A) 0.65 X 10*3/uL (0.20-1.00); NRBC Per 100 WBC 0 X 10*3/uL (0.00-0.01); Neutrophils # (A) 5.88 X 10*3/uL (1.80-7.70); Neutrophils % (A) 62.9 %; Platelet Count 303 X 10*3/uL (140-440); RBC 2.85 X 10*6/uL (4.10-5.20); WBC 9.33 X 10*3/uL (4.50-10.00)
== END | disposition home or self-care (01) ==
LOC: LABWHC1 12:46
PROVIDERS: ATTEND Nurse Practitioner Family
DX: D64.9 Anemia, unspecified (principal)
CPT/HCPCS: 36415; 85025

== ENCOUNTER → 2023-12-31 | Outpatient (CLI) | payer MEDICARE ==
--- NOTE | 2024-01-29 08:33 | XR ---
EXAMINATION TYPE: XR abdomen 1V DATE OF EXAM: 12/31/2023, dictated on 01/29/2024 due to downtime Comparison: None Clinical History: 83-year-old female MRI CLEARANCE FOR FOREIGN BODY Findings: Nonobstructive bowel gas pattern. Lung bases are clear. Scattered mild stool with air extending dista lly to the rectum. Scattered vascular calcifications are present. Degenerating extra convex scoliosis lumbar spine. No retained radiopaque foreign body. Impression: 1. No retained radiopaque foreign body. No retained endocapsule. 2. Nonobstructive bowel gas pattern. Mild stool burden.
== END | disposition home or self-care (01) ==
LOC: RADXRMAIN 12:40
PROVIDERS: ATTEND Internal Medicine Gastroenterology
DX: Z03.821 Encounter for observation for suspected ingested foreign body ruled out (principal)
CPT/HCPCS: 74018

== ENCOUNTER → 2024-01-01 | Outpatient (CLI) | payer MEDICARE ==
--- NOTE | 2024-01-29 10:43 | MR ---
Site ID synapse default Patient KooDenise ID [id number] Age/Gender: 83Y, F Order # N/A Procedure MR abdomen wo/w con Date 01/01/2024 8:11:34 AM EXAMINATION TYPE: MR abdomen wo/w con DATE OF EXAM: 01/15/2024 1:12 PM INDICATION: Patient age: Female; 83 year old; Reason for study: Abnormal blood work COMPARISON: CTA abdomen and pelvis 03/07/2022 TECHNIQUE: Multiplanar multi-sequence imaging was performed without and with IV contrast. The patien t was given 7.5 ccs of Gadavist intravenously and dynamic imaging was performed. Post IV contrast sub traction images were also submitted for review. FINDINGS: Motion degraded examination. LOWER CHEST: Left breast prosthesis. Cardiomegaly. ABDOMEN Liver: Couple of subcentimeter punctate T2 hyperintense nonenhancing foci most consistent with simple cysts. Gallbladder and Bile ducts: Unremarkable. Pancreas: Unremarkable. Spleen: Unremarkable. Adrenal glands: Unremarkable. Kidneys: No hydronephrosis. Right renal extra pelvis.. Bilateral T2 hyperintense thin-walled cysts. S mall bilateral intrinsic T1 hyperintense lesions identified within both kidneys. Most consistent with proteinaceous/hemorrhagic cyst. No enhancing renal lesion is identified. Contrast is demonstrated wi thin both collecting systems on the delayed phase. Stomach and Bowel: Pancolonic diverticulosis. Peritoneum: No evidence of pneumoperitoneum, free fluid, or adenopathy. Vasculature: Unremarkable. No aortic aneurysm. Abdominal wall: Unremarkable. Musculoskeletal: The osseous structures appear intact. Mild dextrocurvature of the lumbar spine. IMPRESSION: 1. No evidence of suspicious abdominal mass. 2. Bilateral simple renal cysts and additional small hemorrhagic/proteinaceous renal cysts. 3. Pancolonic diverticulosis.
== END | disposition home or self-care (01) ==
LOC: RADMRIMAIN 08:52
PROVIDERS: ATTEND Internal Medicine Gastroenterology
DX: K57.30 Diverticulosis of large intestine without perforation or abscess without bleeding (principal); N28.1 Cyst of kidney, acquired; R19.8 Other specified symptoms and signs involving the digestive system and abdomen
CPT/HCPCS: 74183; A9585

== ENCOUNTER 2024-01-29 15:18 | Inpatient (IN) | payer MEDICARE ==
--- NOTE | 2024-01-29 16:19 | ED ---
General Adult HPI - General Chief complaint: Recheck/Abnormal Lab/Rx Stated complaint: kidney issues Time Seen by Provider: 01/29/24 15:25 Source: patient, family, RN notes reviewed, old records reviewed Mode of arrival: wheelchair Limitations: no limitations - History of Present Illness Initial comments: 83-year-old female who has been battling anemia for the last 2 to 3 months and was recently told that her kidney function was terrible and needed to be admitted at the hospital. Patient denies any symptoms. Patient denies any chest pain difficulty breathing shortness of breath. Patient has any fever or chills. Patient denies any dysuria hematuria urinary frequency. Patient states she makes adequate amount of urine. Patient states she has been a little bit tired lately patient has not noted any palpitations. Patient denies any nausea vomiting or diarrhea. - Related Data Home Medications Medication Instructions Recorded Confirmed hydrALAZINE HCL [Apresoline] 50 mg PO TID 12/05/21 01/29/24 Propranolol [Inderal] 20 mg PO BID 10/23/22 01/29/24 Famotidine [Pepcid] 20 mg PO BID 01/29/24 01/29/24 Losartan [Cozaar] 50 mg PO DAILY 01/29/24 01/29/24 Melatonin 10 mg PO HS PRN 01/29/24 01/29/24 Mirtazapine [Remeron] 30 mg PO HS 01/29/24 01/29/24 Ondansetron Odt [Zofran Odt] 4 mg PO Q12HR PRN 01/29/24 01/29/24 Pantoprazole Sodium [Protonix] 40 mg PO BID 01/29/24 01/29/24 amLODIPine [Norvasc] 5 mg PO DAILY 01/29/24 01/29/24 Previous Rx's Medication Instructions Recorded Aspirin 81 mg PO DAILY #90 tab 12/07/21 Atorvastatin [Lipitor] 40 mg PO DAILY #90 tab 12/07/21 Nitroglycerin Sl Tabs [Nitrostat] 0.4 mg SUBLINGUAL Q5M PRN tab 12/07/21 Allergies Allergy/AdvReac Type Severity Reaction Status Date / Time No Known Allergies Allergy Verified 01/29/24 18:39 Review of Systems ROS Statement: Those systems with pertinent positive or pertinent negative responses have been documented in the HPI. ROS Other: All systems not noted in ROS Statement are negative. 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 Family voiced concern that for past month and a half, pt has had increased tiredness/dizzy/shaking/gets tingling in neck/arms and very poor appetite History of Any Multi-Drug Resistant Organisms: None Reported Past Surgical History: Breast Surgery Additional Past Surgical History / Comment(s): left mastectomy-1995, R knee arthroscopy, nasal endoscopy, colonoscopy. Past Anesthesia/Blood Transfusion Reactions: No Reported Reaction Past Psychological History: Anxiety, Depression Smoking Status: Current every day smoker Past Alcohol Use History: None Reported Past Drug Use History: None Reported - Past Family History Father Additional Family Medical History / Comment(s): committed suicide Mother Family Medical History: Cancer Additional Family Medical History / Comment(s): cervical Sister(s) Family Medical History: Diabetes Mellitus General Exam - General Exam Comments Initial Comments: GENERAL: Patient is well-developed and well-nourished. Patient is nontoxic and well- hydrated and is in no acute distress. ENT: Neck is soft and supple. No significant lymphadenopathy is noted. Oropharynx is clear. Moist mucous membranes. Neck has full range of motion without eliciting any pain. EYES: The sclera were anicteric and conjunctiva were pink and moist. Extraocular movements were intact and pupils were equal round and reactive to light. Eyelids were unremarkable. PULMONARY: Unlabored respirations. Good breath sounds bilaterally. No audible rales rhonchi or wheezing was noted. CARDIOVASCULAR: There is a regular rate and rhythm without any murmurs gallops or rubs. ABDOMEN: Soft and nontender with normal bowel sounds. SKIN: Skin is clear with no lesions or rashes and otherwise unremarkable. NEUROLOGIC: Patient is alert and oriented x3. Cranial nerves II through XII are grossly intact. Motor and sensory are also intact. Normal speech, volume and content. Symmetrical smile. MUSCULOSKELETAL: Normal extremities with adequate strength and full range of motion. LYMPHATICS: No significant lymphadenopathy is noted PSYCHIATRIC: Normal psychiatric evaluation. Limitations: no limitations Course Vital Signs 01/29/24 01/29/2401/28/24 15:21 16:56 18:30 Temperature 97.9 F Pulse Rate 83 73 74 Respiratory 18 16 20 Rate Blood Pressure 202/69 203/106 225/83 O2 Sat by Pulse 98 97 98 Oximetry Medical Decision Making - Medical Decision Making Was pt. sent in by a medical professional or institution (GRAZYNA Feldman, ASSEM[employer] MACHINE OFFBEARER, urgent care, hospital, or long-term...) When possible be specific @ -Sent in by her primary medical care doctor Did you speak to anyone other than the patient for history (EMS, parent, family, police, friend...)? What history was obtained from this source @ -No Did you review nursing and triage notes (agree or disagree)? Why? @ -I reviewed and agree with nursing and triage notes Were old charts reviewed (outside hosp., previous admission, EMS record, old EKG, old radiological studies, urgent care reports/EKG's, long-term records)? Report findings @ -No old charts were reviewed Differential Diagnosis? @ -Acute renal failure, urinary tract infection, pyelonephritis, urinary obstru ction, this is not an all-inclusive list EKG interpreted by me (3pts min.). @ -As above X-rays interpreted by me (1pt min.). @ -None done CT interpreted by me (1pt min.). @ -None done U/S interpreted by me (1pt. min.). @ -None done What testing was considered but not performed or refused? (CT, X-rays, U/S, labs)? Why? @ -None What meds were considered but not given or refused? Why? @ -None Did you discuss the management of the patient with other professionals (professionals i.e. GRAZYNA Feldman, ASSEMBLY MACHINE OFFBEARER, lab, RT, psych nurse, group social worker, car chaser, teacher, corporate banking officer, caseworker)? Give summary @ -I spoke with Dr. Keys he agreed to admit the patient Was smoking cessation discussed for >3mins.? @ -No Was critical care preformed (if so, how long)? @ -No Were there social determinants of health that impacted care today? How? (Homelessness, low income, unemployed, alcoholism, drug addiction, tra nsportation, low edu. Level, literacy, decrease access to med. care, shelter, rehab)? @ -No Was there de-escalation of care discussed even if they declined (Discuss DNR or withdrawal of care, Hospice)? DNR status @ -No What co-morbidities impacted this encounter? (DM, HTN, Smoking, COPD, CAD, Cancer, CVA, ARF, Chemo, Hep., AIDS, mental health diagnosis, sleep apnea, morbid obesity)? @ -None Was patient admitted / discharged? Hospital course, mention meds given and route, prescriptions, significant lab abnormalities, going to OR and other pertinent info. @ -Patient is going to be admitted to [facility] patient creatinine was 3.26. Patient had no complaints I will be consulting nephrology as well and I wrote admitting orders Undiagnosed new problem with uncertain prognosis? @ -No Drug Therapy requiring intensive monitoring for toxicity (Heparin, Nitro, Insulin, Cardizem)? @ -No Were any procedures done? @ -No Diagnosis/symptom? @ -Acute renal failure Acute, or Chronic, or Acute on Chronic? @ -Default Uncomplicated (without systemic symptoms) or Complicated (systemic symptoms)? @ -Acute Side effects of treatment? @ -No Exacerbation, Progression, or Severe Exacerbation? @ -No Poses a threat to life or bodily function? How? (Chest pain, [place], [place], pneumonia, PE, COPD, DKA, ARF, appy, cholecystitis, CVA, Diverticulitis, Homicidal, Suicidal, threat to staff... and all critical care pts) @ -Yes this could lead to electrolyte abnormalities and lead to arrhythmias and possible Diagnosis/symptom? @ -Hypertensive urgency Acute, or Chronic, or Acute on Chronic? @ -Acute Uncomplicated (without systemic symptoms) or Complicated (systemic symptoms)? @ -Complicated Side effects of treatment? @ -None Exacerbation, Progression, or Severe Exacerbation] @ -No Poses a threat to life or bodily function? @ -This could lead to endorgan dysfunction - Lab Data Result diagrams: 01/29/24 17:06 01/29/24 17:06 Lab Results 01/29/24 01/29/24 01/29/24 Range/Units 17:06 17:06 17:06 WBC 8.0 (3.8-10.6) k/uL RBC 2.96 L (3.80-5.40) m/uL Hgb 8.7 L (11.4-16.0) gm/dL Hct 27.5 L (34.0-46.0) % MCV 93.1 (80.0-100.0) fL MCH 29.5 (25.0-35.0) pg MCHC 31.7 (31.0-37.0) g/dL RDW 15.0 (11.5-15.5) % Plt Count 276 (150-450) k/uL MPV 7.3 Neutrophils % 64 % Lymphocytes % 26 % Monocytes % 7 % Eosinophils % 0 % Basophils % 1 % Neutrophils # 5.1 (1.3-7.7) k/uL Lymphocytes # 2.1 (1.0-4.8) k/uL Monocytes # 0.6 (0-1.0) k/uL Eosinophils # 0.0 (0-0.7) k/uL Basophils # 0.1 (0-0.2) k/uL Hypochromasia Moderate Sodium 140 (137-145) mmol/L Potassium 4.5 (3.5-5.1) mmol/L Chloride 115 H (98-107) mmol/L Carbon Dioxide 19 L (22-30) mmol/L Anion Gap 6 mmol/L BUN 33 H (7-17) mg/dL Creatinine 3.62 H (0.52-1.04) mg/dL Est GFR (CKD-EPI)AfAm 13 (>60 ml/min/1.73 sqM) Est GFR (CKD-EPI)NonAf 11 (>60 ml/min/1.73 sqM) Glucose 78 (74-99) mg/dL Plasma Lactic Acid Anton (0.7-2.0) mmol/L Calcium 8.1 L (8.4-10.2) mg/dL Magnesium 2.2 (1.6-2.3) mg/dL Total Bilirubin 0.2 (0.2-1.3) mg/dL AST 24 (14-36) U/L ALT 13 (4-34) U/L Alkaline Phosphatase 60 (38-126) U/L Total Protein 5.6 L (6.3-8.2) g/dL Albumin 3.0 L (3.5-5.0) g/dL Urine Color Light Yellow Urine Appearance Clear (Clear) Urine pH 7.0 (5.0-8.0) Ur Specific [place] 1.015 (1.001-1.035) Urine Protein 3+ H (Negative) Urine Glucose (UA) 3+ H (Negative) Urine Ketones Negative (Negative) Urine Blood Moderate H (Negative) Urine Nitrite Negative (Negative) Urine Bilirubin Negative (Negative) Urine Urobilinogen <2.0 (<2.0) mg/dL Ur Leukocyte Esterase Trace H (Negative) Urine RBC 69 H (0-5) /hpf Urine WBC 23 H (0-5) /hpf Urine Bacteria Rare H (None) /hpf Urine Mucus Rare H (None) /hpf 01/29/24 Range/Units 17:06 WBC (3.8-10.6) k/uL RBC (3.80-5.40) m/uL Hgb (11.4-16.0) gm/dL Hct (34.0-46.0) % MCV (80.0-100.0) fL MCH (25.0-35.0) pg MCHC (31.0-37.0) g/dL RDW (11.5-15.5) % Plt Count (150-450) k/uL MPV Neutrophils % % Lymphocytes % % Monocytes % % Eosinophils % % Basophils % % Neutrophils # (1.3-7.7) k/uL Lymphocytes # (1.0-4.8) k/uL Monocytes # (0-1.0) k/uL Eosinophils # (0-0.7) k/uL Basophils # (0-0.2) k/uL Hypochromasia Sodium (137-145) mmol/L Potassium (3.5-5.1) mmol/L Chloride (98-107) mmol/L Carbon Dioxide (22-30) mmol/L Anion Gap mmol/L BUN (7-17) mg/dL Creatinine (0.52-1.04) mg/dL Est GFR (CKD-EPI)AfAm (>60 ml/min/1.73 sqM) Est GFR (CKD-EPI)NonAf (>60 ml/min/1.73 sqM) Glucose (74-99) mg/dL Plasma Lactic Acid Anton 0.8 (0.7-2.0) mmol/L Calcium (8.4-10.2) mg/dL Magnesium (1.6-2.3) mg/dL Total Bilirubin (0.2-1.3) mg/dL AST (14-36) U/L ALT (4-34) U/L Alkaline Phosphatase (38-126) U/L Total Protein (6.3-8.2) g/dL Albumin (3.5-5.0) g/dL Urine Color Urine Appearance (Clear) Urine pH (5.0-8.0) Ur Specific [place] (1.001-1.035) Urine Protein (Negative) Urine Glucose (UA) (Negative) Urine Ketones (Negative) Urine Blood (Negative) Urine Nitrite (Negative) Urine Bilirubin (Negative) Urine Urobilinogen (<2.0) mg/dL Ur Leukocyte Esterase (Negative) Urine RBC (0-5) /hpf Urine WBC (0-5) /hpf Urine Bacteria (None) /hpf Urine Mucus (None) /hpf Disposition Clinical Impression: Acute renal failure (ARF), Hypertensive urgency Disposition: ADMITTED IP TO THIS HOSP Referrals: Alisia Nick MD [Primary Care Provider] - 1-2 days Time of Disposition: 19:05
[2024-01-29 17:34] LABS: Basophils # (A) 0.1 k/uL (0-0.2); Basophils % (A) 1 %; Eosinophils % (A) 0 %; HCT 27.5 % (34.0-46.0); HGB 8.7 gm/dL (11.4-16.0); Hypochromasia Moderate; Lymphocytes # (A) 2.1 k/uL (1.0-4.8); Lymphocytes % (A) 26 %; MCH 29.5 pg (25.0-35.0); MCHC 31.7 g/dL (31.0-37.0); MCV 93.1 fL (80.0-100.0); Mean Platelet Volume 7.3; Monocytes # (A) 0.6 k/uL (0-1.0); Monocytes % (A) 7 %; Neutrophils # (A) 5.1 k/uL (1.3-7.7); Neutrophils % (A) 64 %; Platelet Count 276 k/uL (150-450); RBC 2.96 m/uL (3.80-5.40)
[2024-01-29 17:48] LABS: ALT 13 U/L (4-34); AST 24 U/L (14-36); African American GFR (CKD) 13 (>60 ml/min/1.73 sqM); Alkaline Phosphatase 60 U/L (38-126); Anion Gap 6 mmol/L; Blood Urea Nitrogen 33 mg/dL (7-17); Calcium 8.1 mg/dL (8.4-10.2); Carbon Dioxide 19 mmol/L (22-30); Chloride 115 mmol/L (98-107); Glucose 78 mg/dL (74-99); Magnesium 2.2 mg/dL (1.6-2.3); Non-African American GFR(CKD) 11 (>60 ml/min/1.73 sqM); Potassium 4.5 mmol/L (3.5-5.1); Sodium 140 mmol/L (137-145); Total Bilirubin 0.2 mg/dL (0.2-1.3); Total Protein 5.6 g/dL (6.3-8.2)
[2024-01-29 18:09] LABS: Appearance,Urine Clear (Clear); Bacteria,Urine Rare /hpf; Bilirubin,Urine Negative (Negative); Blood,Urine Moderate (Negative); Color,Urine Light Yellow; Glucose,Urine (UA) 3+ (Negative); Ketones,Urine Negative (Negative); Leukocyte Esterase,Urine Trace (Negative); Mucus,Urine Rare /hpf; Nitrite,Urine Negative (Negative); Protein,Urine 3+ (Negative); RBC,Urine 69 /hpf (0-5); Specific Gravity,Urine 1.015 (1.001-1.035); Urobilinogen,Urine <2.0 mg/dL (<2.0); WBC,Urine 23 /hpf (0-5)
[2024-01-29] MEDS: hydrALAZINE HCL 20 MG/ML 1 ML VIAL IVP STA (18:38)
[2024-01-29] MEDS: SODIUM CHLORIDE 0.9% 1,000 ML IV ONE (20:46)
--- NOTE | 2024-01-29 22:17 | P.HPIM ---
History of Present Illness H&P Date: 01/29/24 Patient is a 83-year-old female with a PMH of CKD stage IIIa, hypertension, anemia, COPD (not on home oxygen) presents to the ED with abnormal lab values. Patient was accompanied by son and daughter. Patient states she was being seen by PCP for her chronic anemia. Labs were drawn by PCP and was noticed that her GFR was 15 and was advised to go to the emergency department for further evaluation. Was told by patient's daughter that GFR baseline is around 5859. Patient states she has been voiding fine and denies any urinary symptoms. She admits to fatigue due to her anemia which is unchanged and chronic. She denies active bleeding. She also admits to recent swelling of her feet bilaterally. She admits to some shortness of breath. Patient denies any chest pain, headache, abdominal pain. EKG independently interpreted showed atrial fibrillation with a rate of 73 bpm, QTc 413 with findings of LVH. WBC 8.0, Hgb 8.7, MCV 93.1, sodium 140, potassium 4.5, chloride 115, CO2 19, BUN 33, creatinine 3.62 (up from 2.8 in 10/30/23 and 1.0 on 02/14/23), GFR 11, total protein 5.6, albumin 3.0, calcium 8.1, mag 2.2 UA showed protein 3+, glucose 3+, urine blood moderate, urine RBC 69, urine WBC 23 T 97.9F, CA 74, RR 20, BP 225/83, O2 sat 98% on room air ED documentation reviewed and case discussed with ED provider. Review of systems: Pertinent positives and negatives as discussed in HPI, a complete review of systems was performed and all other systems are negative. 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 Home: Lives at home by herself Physical examination: Vital signs reviewed General: non toxic, no distress, appears at stated age, normal weight Derm: no unusual rashes/lesions, warm Head: atraumatic, normocephalic, symmetric Eyes: EOMI, anicteric sclera, pupils equal round reactive to light ENT: Nose and ears atraumatic Neck: No cervical lymphadenopathy, trachea midline, supple Mouth: no lip lesion, mucus membranes moist Cardiovascular: S1S2 reg, no murmur, positive dorsalis pedis pulse bilateral, +1 pitting edema seen on foot bilaterally Lungs: CTA bilateral, no rhonchi, no rales, no accessory muscle use Abdominal: soft, nontender to palpation, no guarding Ext: muscle strength 5 out of 5 in all 4 extremities grossly, no gross muscle atrophy, no contractures, Neuro: CN II-XI grossly intact Psych: Alert and oriented to person, place and time, appropriate affect Assessment/Plan: Patient is a 83-year-old female with a PMH of CKD stage, hypertension, anemia, COPD (not on home oxygen) presents to the ED with abnormal lab values suggesting SHERRON on CKD. #. SHERRON on CKD (Stage IIIa) BUN 33, creatinine 3.26 (baseline creatinine), total protein 5.6 L, albumin 3.0 L UA showed protein 3+, glucose 3+, urine blood moderate, urine RBC 69, urine WBC 23 Order renal ultrasound Monitor intake output Hold nephrotoxic medication Placed on NS at 75 cc/HR Monitor BMP Nephrology consulted #. Ankle edema Patient with +1 edema bilateral on feet bilaterally, possibly medication induced with amlodipine #. Hypertensive urgency #. Chronic hypertension Was given hydralazine 20 mg IVP once by ED Give clonidine 0.2 mg every 8 hours as needed if SBP >180 Continue to monitor blood pressure Hold losartan due to SHERRON. Resume home med Hydralazine 50 mg po TID and Norvasc 5 mg po qd - BP currently 138/99, avoid overcorrection #. New onset atrial fibrillation Patient currently not on any anticoagulation Keep K > 4, magnesium > 2 Monitor on telemetry Cardiology consulted - Order Echocardiogram - Check TSH levels #. Normocytic anemia, likely of chronic disease Hgb 8.7, MCV 93.1 Iron studies (01/28/2024) showed low transferrin of 182, rest of iron panel unremarkable Patient with no active bleeding B12 and folate (01/28/2024) unremarkable Transfuse if Hgb is < 7 Follow-up CBC #. COPD, not in acute exacerbation Patient admits to shortness of breath (chronic, unchanged), denies cough or sputum production Place on DuoNeb 3 mL inhalation QID prn Symbicort (160-4.5 mcg inhaler) 2 puff inhalation twice daily #. CAD s/p stent placement #. Hyperlipidemia Continue atorvastatin 40 mg p.o. daily Continue aspirin 81 mg p.o. daily Lipid panel (01/28/2024) unremarkable, cholesterol 167 LDL 82, triglycerides 128 #. 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 History of breast cancer status post left breast mastectomy (in remission) F: NS at 75 cc/HR E: Replete electrolytes as needed N: Regular diet A: Fall precautions DVT prophylaxis: Lovenox 30 mg SQ daily The patient is admitted with an anticipated greater than than 2 midnight stay for evaluation of SHERRON on CKD. 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 Family voiced concern that for past month and a half, pt has had increased tiredness/dizzy/shaking/gets tingling in neck/arms and very poor appetite History of Any Multi-Drug Resistant Organisms: None Reported Past Surgical History: Breast Surgery Additional Past Surgical History / Comment(s): left mastectomy-1995, R knee arthroscopy, nasal endoscopy, colonoscopy. Past Anesthesia/Blood Transfusion Reactions: No Reported Reaction Past Psychological History: Anxiety, Depression Smoking Status: Current every day smoker Past Alcohol Use History: None Reported Past Drug Use History: None Reported - Past Family History Father Additional Family Medical History / Comment(s): committed suicide Mother Family Medical History: Cancer Additional Family Medical History / Comment(s): cervical Sister(s) Family Medical History: Diabetes Mellitus Medications and Allergies Home Medications Medication Instructions Recorded Confirmed Type hydrALAZINE HCL [Apresoline] 50 mg PO TID 12/05/21 01/29/24 History Aspirin 81 mg PO DAILY #90 tab 12/07/21 01/29/24 Rx Atorvastatin [Lipitor] 40 mg PO DAILY #90 tab 12/07/21 01/29/24 Rx Nitroglycerin Sl Tabs [Nitrostat] 0.4 mg SUBLINGUAL Q5M PRN tab 12/07/21 01/29/24 Rx Propranolol [Inderal] 20 mg PO BID 10/23/22 01/29/24 History Famotidine [Pepcid] 20 mg PO BID 01/29/24 01/29/24 History Losartan [Cozaar] 50 mg PO DAILY 01/29/24 01/29/24 History Melatonin 10 mg PO HS PRN 01/29/24 01/29/24 History Mirtazapine [Remeron] 30 mg PO HS 01/29/24 01/29/24 History Ondansetron Odt [Zofran Odt] 4 mg PO Q12HR PRN 01/29/24 01/29/24 History Pantoprazole Sodium [Protonix] 40 mg PO BID 01/29/24 01/29/24 History amLODIPine [Norvasc] 5 mg PO DAILY 01/29/24 01/29/24 History Allergies Allergy/AdvReac Type Severity Reaction Status Date / Time No Known Allergies Allergy Verified 01/29/24 18:39 Physical Exam Vitals: Vital Signs Temp Pulse Resp BP Pulse Ox 01/29/24 18:30 74 20 225/83 98 01/29/24 16:56 73 16 203/106 97 01/29/24 15:21 97.9 F 83 18 202/69 98 Intake and Output 01/29/24 01/29/24 01/29/24 06:59 14:59 22:59 Other: Weight 47.174 kg Results CBC & Chem 7: 01/29/24 17:06 01/29/24 17:06 Labs: Abnormal Lab Results - Last 24 Hours (Table) 01/29/24 01/29/24 01/29/24 Range/Units 17:06 17:06 17:06 RBC 2.96 L (3.80-5.40) m/uL Hgb 8.7 L (11.4-16.0) gm/dL Hct 27.5 L (34.0-46.0) % Chloride 115 H (98-107) mmol/L Carbon Dioxide 19 L (22-30) mmol/L BUN 33 H (7-17) mg/dL Creatinine 3.62 H (0.52-1.04) mg/dL Calcium 8.1 L (8.4-10.2) mg/dL Total Protein 5.6 L (6.3-8.2) g/dL Albumin 3.0 L (3.5-5.0) g/dL Urine Protein 3+ H (Negative) Urine Glucose (UA) 3+ H (Negative) Urine Blood Moderate H (Negative) Ur Leukocyte Esterase Trace H (Negative) Urine RBC 69 H (0-5) /hpf Urine WBC 23 H (0-5) /hpf Urine Bacteria Rare H (None) /hpf Urine Mucus Rare H (None) /hpf
[2024-01-30] MEDS: hydrALAZINE HCL 50 MG TAB PO STA (03:28)
[2024-01-30 06:23] LABS: Basophils % (A) 1 %; Eosinophils % (A) 0 %; HCT 25.8 % (34.0-46.0); Hypochromasia Marked; Lymphocytes # (A) 1.5 k/uL (1.0-4.8); Lymphocytes % (A) 17 %; MCH 29.4 pg (25.0-35.0); MCHC 31.2 g/dL (31.0-37.0); MCV 94.3 fL (80.0-100.0); Mean Platelet Volume 7.4; Monocytes # (A) 0.5 k/uL (0-1.0); Monocytes % (A) 5 %; Neutrophils # (A) 6.4 k/uL (1.3-7.7); Neutrophils % (A) 75 %; Platelet Count 252 k/uL (150-450); RBC 2.73 m/uL (3.80-5.40); RDW 14.9 % (11.5-15.5); WBC 8.5 k/uL (3.8-10.6)
[2024-01-30 06:35] LABS: ALT 11 U/L (4-34); AST 21 U/L (14-36); African American GFR (CKD) 13 (>60 ml/min/1.73 sqM); Albumin 2.5 g/dL (3.5-5.0); Alkaline Phosphatase 55 U/L (38-126); Anion Gap 6 mmol/L; Blood Urea Nitrogen 31 mg/dL (7-17); Calcium 7.8 mg/dL (8.4-10.2); Carbon Dioxide 18 mmol/L (22-30); Chloride 114 mmol/L (98-107); Glucose 88 mg/dL (74-99); Non-African American GFR(CKD) 12 (>60 ml/min/1.73 sqM); Potassium 4.7 mmol/L (3.5-5.1); Sodium 138 mmol/L (137-145); Total Bilirubin 0.3 mg/dL (0.2-1.3); Total Protein 4.7 g/dL (6.3-8.2)
[2024-01-30] MEDS: ASPIRIN 81 MG PO SCH (08:29)
[2024-01-30] MEDS: hydrALAZINE HCL 50 MG TAB PO SCH (08:29)
[2024-01-30] MEDS: ATORVASTATIN 40 MG TAB PO SCH (08:29)
[2024-01-30] MEDS: PANTOPRAZOLE 40 MG TABLET PO SCH (08:29)
[2024-01-30] MEDS: amLODIPine 5 MG TAB PO SCH (08:29)
[2024-01-30] MEDS: FAMOTIDINE 20 MG TAB PO SCH (08:29)
[2024-01-30] MEDS: ENOXAPARIN 30 MG/0.3 ML SYRINGE SQ SCH (08:30)
[2024-01-30] MEDS: carvediloL 12.5 MG TAB PO SCH (08:32)
[2024-01-30] MEDS ORDERED: ENOXAPARIN 40 MG/0.4 ML SYRINGE SQ SCH (09:00)
[2024-01-30] MEDS ORDERED: FAMOTIDINE 20 MG TAB PO SCH (09:00)
[2024-01-30] MEDS ORDERED: amLODIPine 5 MG TAB PO SCH (09:00)
[2024-01-30] MEDS ORDERED: PROPRANOLOL 20 MG TAB PO SCH (09:00)
--- NOTE | 2024-01-30 10:40 | P.CRDCN ---
History of Present Illness History of present illness: HISTORY OF PRESENT ILLNESS: This is a 83-year-old female with a past medical history significant for coronary artery disease, hypertension, hyperlipidemia, and peripheral vascular disease. Patient follows in the office with Dr. Mccoy. We have been asked to see the patient in consultation for atrial fibrillation. Patient examined at the bedside in the emergency room. Patient states she was called by her primary care physician to come to the emergency room secondary to abnormal labs. Patient was noted to be in acute renal failure. Patient does report shortness of breath. She denies any chest pain or pressure. Cardiology was consulted secondary to atrial fibrillation. EKG interpreted by computer as atrial fibrillation. However upon personal review of EKG by Dr. Maria patient is in sinus mechanism. DIAGNOSTICS: - EKG reveals sinus mechanism - Laboratory data: WBC 8.5. Hemoglobin 8.0. Platelet count 252. Sodium 138. Potassium 4.7. BUN 31. Creatinine 3.48. Magnesium 2.0. TSH 4.510. - Current home cardiac medications include Inderal 20 mg twice a day, hydrala zine 50 mg 3 times a day, amlodipine 5 mg daily, losartan 50 mg daily, Lipitor 40 mg daily, aspirin 81 mg daily - Most recent echocardiogram obtained in September 2023 revealed normal EF, mild TR, mild MR -Patient underwent exercise stress test in December 2021 which was nondiagnostic -Patient underwent cardiac catheterization in November 2021 with stenting to the mid LAD REVIEW OF SYSTEMS: At the time of my exam: CONSTITUTIONAL: Denies fever or chills. HEENT: Denies blurred vision, vision changes, or eye pain. Denies hemoptysis CARDIOVASCULAR: Denies chest pain. Denies orthopnea. Denies PND. Denies pa lpitations RESPIRATORY: Denies shortness of breath. GASTROINTESTINAL: Denies abdominal pain. Denies nausea or vomiting. HEMATOLOGIC: Denies bleeding disorders. GENITOURINARY: Denies any blood in urine. SKIN: Denies pruitis. Denies rash. PHYSICAL EXAM: VITAL SIGNS: Reviewed. GENERAL: Well-developed in no acute distress. HEENT: Head is normocephalic. Pupils are equal, round. Sclerae anicteric. Mucous membranes of the mouth are moist. Neck supple. No JVD or thyromegaly LUNGS: Respirations even and unlabored. Lungs essentially clear to auscultation bilaterally. HEART: Regular rate and rhythm. S1 and S2 heard. ABDOMEN: Soft. Nondistended. Nontender. EXTREMITIES: Normal range of motion. No clubbing or cyanosis. Peripheral pulses intact. No lower extremity edema NEUROLOGIC: Awake and alert. Oriented x 3. ASSESSMENT: Hypertensive urgency Atrial fibrillation, ruled out, EKG and telemetry reveals sinus mechanism Acute on chronic kidney disease Coronary artery disease with previous stenting to the mid LAD, 2021 Peripheral vascular disease Hypertension Hyperlipidemia PLAN: Atrial fibrillation, ruled out, EKG and telemetry reveals sinus mechanism Obtain 2D echo to assess cardiac structure and function Increase amlodipine to 5 mg twice a day Discontinue Inderal. Begin carvedilol 12.5 mg twice a day Hold losartan secondary to SHERRON Continue to monitor kidney function Further recommendations pending patient course Nurse practitioner note has been reviewed by physician. Signing provider agrees with the documented findings, assessment, and plan of care documented by LEGAL SUPPORT ANALYST as a scribe. 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 Family voiced concern that for past month and a half, pt has had increased tiredness/dizzy/shaking/gets tingling in neck/a luis and very poor appetite History of Any Multi-Drug Resistant Organisms: None Reported Past Surgical History: Breast Surgery Additional Past Surgical History / Comment(s): left mastectomy-1995, R knee arthroscopy, nasal endoscopy, colonoscopy. Past Anesthesia/Blood Transfusion Reactions: No Reported Reaction Past Psychological History: Anxiety, Depression Smoking Status: Current every day smoker Past Alcohol Use History: None Reported Past Drug Use History: None Reported - Past Family History Father Additional Family Medical History / Comment(s): committed suicide Mother Family Medical History: Cancer Additional Family Medical History / Comment(s): cervical Sister(s) Family Medical History: Diabetes Mellitus Medications and Allergies Home Medications Medication Instructions Recorded Confirmed Type hydrALAZINE HCL [Apresoline] 50 mg PO TID 12/05/21 01/29/24 History Aspirin 81 mg PO DAILY #90 tab 12/07/21 01/29/24 Rx Atorvastatin [Lipitor] 40 mg PO DAILY #90 tab 12/07/21 01/29/24 Rx Nitroglycerin Sl Tabs [Nitrostat] 0.4 mg SUBLINGUAL Q5M PRN tab 12/07/21 01/29/24 Rx Propranolol [Inderal] 20 mg PO BID 10/23/22 01/29/24 History Famotidine [Pepcid] 20 mg PO BID 01/29/24 01/29/24 History Losartan [Cozaar] 50 mg PO DAILY 01/29/24 01/29/24 History Melatonin 10 mg PO HS PRN 01/29/24 01/29/24 History Mirtazapine [Remeron] 30 mg PO HS 01/29/24 01/29/24 History Ondansetron Odt [Zofran Odt] 4 mg PO Q12HR PRN 01/29/24 01/29/24 History Pantoprazole Sodium [Protonix] 40 mg PO BID 01/29/24 01/29/24 History amLODIPine [Norvasc] 5 mg PO DAILY 01/29/24 01/29/24 History Allergies Allergy/AdvReac Type Severity Reaction Status Date / Time No Known Allergies Allergy Verified 01/29/24 18:39 Physical Exam Vitals: Vital Signs Temp Pulse Resp BP Pulse Ox 01/30/24 08:35 84 22 169/66 97 01/30/24 07:49 98.4 F 71 20 181/73 96 01/30/24 06:00 73 17 180/66 96 01/30/24 05:00 68 24 138/80 96 01/30/24 04:15 74 22 133/105 96 01/30/24 03:26 89 20 191/76 96 01/30/24 02:30 71 14 187/80 96 01/30/24 00:26 67 15 157/62 97 01/29/24 20:00 85 18 138/99 97 01/29/24 18:30 74 20 225/83 98 01/29/24 16:56 73 16 203/106 97 01/29/24 15:21 97.9 F 83 18 202/69 98 Intake and Output 01/29/24 01/30/24 01/30/24 22:59 06:59 14:59 Other: Weight 47.174 kg Results 01/30/24 05:52 01/30/24 05:52 Cardiac Enzymes 01/29/24 01/30/24 Range/Units 17:06 05:52 AST 24 21 (14-36) U/L CBC 01/29/24 01/30/24 Range/Units 17:06 05:52 WBC 8.0 8.5 (3.8-10.6) k/uL RBC 2.96 L 2.73 L (3.80-5.40) m/uL Hgb 8.7 L 8.0 L (11.4-16.0) gm/dL Hct 27.5 L 25.8 L (34.0-46.0) % Plt Count 276 252 (150-450) k/uL Comprehensive Metabolic Panel 01/29/24 01/30/24 Range/Units 17: 05:52 Sodium 140 138 (137-145) mmol/L Potassium 4.5 4.7 (3.5-5.1) mmol/L Chloride 115 H 114 H (98-107) mmol/L Carbon Dioxide 19 L 18 L (22-30) mmol/L BUN 33 H 31 H (7-17) mg/dL Creatinine 3.62 H 3.48 H (0.52-1.04) mg/dL Glucose 78 88 (74-99) mg/dL Calcium 8.1 L 7.8 L (8.4-10.2) mg/dL AST 24 21 (14-36) U/L ALT 13 11 (4-34) U/L Alkaline Phosphatase 60 55 (38-126) U/L Total Protein 5.6 L 4.7 L (6.3-8.2) g/dL Albumin 3.0 L 2.5 L (3.5-5.0) g/dL Current Medications Generic Name Dose Route Start Last Admin Trade Name Freq PRN Reason Stop Dose Admin Amlodipine Besylate 5 mg 01/30/24 09:00 01/30/24 08:29 Amlodipine 5 Mg Tab PO 5 mg BID ANNIKA Administration Aspirin 81 mg 01/30/24 09:00 01/30/24 08:29 Aspirin 81 Mg PO 81 mg DAILY ANNIKA Administration Atorvastatin Calcium 40 mg 01/30/24 09:00 01/30/24 08:29 Atorvastatin 40 Mg Tab PO 40 mg DAILY ANNIKA Administration Carvedilol 12.5 mg 01/30/24 08:30 01/30/24 08:32 Carvedilol 12.5 Mg Tab PO 12.5 mg BID-W/MEALS ANNIKA Administration Famotidine 20 mg 01/30/24 09:00 01/30/24 08:29 Famotidine 20 Mg Tab PO 20 mg DAILY ANNIKA Administration Heparin Sodium (Porcine) 5,000 unit 01/30/24 21:00 Heparin Sodium,Porcine 5,000 Unit/Ml 1 Ml Vial SQ Q12HR ANNIKA Hydralazine HCl 50 mg 01/30/24 09:00 01/30/24 08:29 Hydralazine Hcl 50 Mg Tab PO 50 mg TID ANNIKA Administration Melatonin 10 mg 01/29/24 23:41 Melatonin 5 Mg Tablet PO HS PRN Insomnia Mirtazapine 30 mg 01/30/24 21:00 Mirtazapine 15 Mg Tab PO HS ANNIKA Pantoprazole Sodium 40 mg 01/30/24 09:00 01/30/24 08:29 Pantoprazole 40 Mg Tablet PO 40 mg BID ANNIKA Administration Intake and Output 01/29/24 01/30/24 01/30/24 22:59 06:59 14:59 Other: Weight 47.174 kg 01/30/24 05:52 01/30/24 05:52
[2024-01-30 11:00] LABS: Reticulocyte % 1.8 % (0.5-2.0)
--- NOTE | 2024-01-30 11:07 | CA ---
Transthoracic Echo Report Name: Denise Koo Age: 83 Gender: F : 1940 Exam Date: 01/30/2024 10:09 Exam Location: [place] [facility] Ht (in): 61 Wt (lb): 104 Ordering Physician: Wilbert Ayala MD Attending/Referring Phys: Drawing Box Tender Maricel Molina RDCS Procedure CPT: Indications: afib Cardiac Hx: Technical Quality: Fair Contrast 1: Total Dose (mL): Contrast 2: Total Dose (mL): MEASUREMENTS (Male / Female) Normal Values 2D ECHO LV Diastolic Diameter PLAX 4.4 cm 4.2 - 5.9 / 3.9 - 5.3 cm LV Systolic Diameter PLAX 3.5 cm IVS Diastolic Thickness 1.5 cm 0.6 - 1.0 / 0.6 - 0.9 cm LVPW Diastolic Thickness 1.6 cm 0.6 - 1.0 / 0.6 - 0.9 cm LV Relative Wall Thickness 0.7 RV Internal Dim ED PLAX 2.8 cm LA Systolic Diameter LX 4.2 cm 3.0 - 4.0 / 2.7 - 3.8 cm LV Diastolic Volume MOD 4C 88.6 cm??? LV Systolic Volume MOD 4C 50.1 cm??? LV Ejection Fraction MOD 4C 43.5 % LV Cardiac Index MOD 4C 1948.7 cm???/min???m??? LV Diastolic Length 4C 7.8 cm LV Systolic Length 4C 6.8 cm LV Diastolic Volume MOD 2C 86.4 cm??? LV Systolic Volume MOD 2C 42.5 cm??? LV Ejection Fraction MOD 2C 50.8 % LV Cardiac Index MOD 2C 2223.1 cm???/min???m??? LV Diastolic Length 2C 6.7 cm LV Systolic Length 2C 5.9 cm LA Volume 76.1 cm??? 18 - 58 / 22 - 52 cm??? LA Volume Index 53.5 cm???/m??? 16 - 28 cm???/m??? M-MODE Aortic Root Diameter MM 2.9 cm AV Cusp Separation MM 2.2 cm DOPPLER AV Peak Velocity 136.2 cm/s AV Peak Gradient 7.4 mmHg MV Area PHT 3.3 cm??? Mitral E Point Velocity 64.2 cm/s Mitral A Point Velocity 74.5 cm/s Mitral E to A Ratio 0.9 MV Deceleration Time 227.2 ms TR Peak Velocity 249.2 cm/s TR Peak Gradient 24.8 mmHg Right Ventricular Systolic Press 29.2 mmHg FINDINGS Left Ventricle Left ventricular ejection fraction is estimated at 55 %. Left ventricular cavity size normal. Moderately increased septal wall thickness. Moderately increased posterior wall thickness. Normal left ventricular wall motion. Right Ventricle Normal right ventricular size and function. Right ventricular systolic pressure within normal limits. Right Atrium Normal right atrial size. No right atrial thrombus or mass seen. Left Atrium Mildly increased left atrial diameter. Severely increased left atrial volume. Mildly increased left atrial area. Mitral Valve Structurally normal mitral valve. No mitral stenosis, regurgitation or prolapse. Aortic Valve Trileaflet aortic valve. No aortic valve stenosis or regurgitation. Tricuspid Valve Structurally normal tricuspid valve. Mild tricuspid regurgitation. Pulmonic Valve Structurally normal pulmonic valve. No pulmonic regurgitation. Pericardium There is a fat pad and probably small pericardial effusion. In the subcostal view this is overlying the right atrial free wall. Not significant Aorta Normal size aortic root and proximal ascending aorta. CONCLUSIONS At normal LV size and preserved systolic function mild concentric LVH. Small pericardial effusion/fat pad. Enlarged left atrium no significant abnormality on the Doppler exam. . Previewed by: Dr. Lucio Ulloa MD (Electronically Signed) Final Date: 30 January 2024 11:06
--- NOTE | 2024-01-30 13:26 | P.NPCON ---
History of Present Illness - Reason for Consult acute renal failure - History of Present Illness 77-year-old female with a past medical history of hypertension, anemia, COPD (not on home oxygen) presented to the ED after receiving abnormal lab work from their PCP. Nephrology is consulted for acute kidney injury. Creatinine on admission was 3.5 and is now 3.48. Creatinine 02/14/23 was 1.0 . On 10/30/23 cr was 2.8. BP noted to be high with systolic at 202 on admission. Patient reports she has been voiding without issue. No NSAIDs noted on home med list. Patient is on ARB at home. No toxins from IV dyes. Sodium and potassium within normal limits. Pt reports for the last year her BP has been elevated with systolic ranging fron 150's -160's. Pt reports she saw cardiology in 11/16 and had her propanolol 20mg QD changed to BID. UA showed protein 3+, glucose 3+, urine blood moderate, urine RBC 69, urine WBC 23 Past Medical History Past Medical History: Cancer, COPD, Hyperlipidemia, Hypertension, Osteoarthritis (OA), Pneumonia Additional Past Medical History / Comment(s): L sided breast cancer with mastectomy/chemo in 1995, TB at age 20 and had treatment and negative chest xrays ever since, L sided epistaxis. Family voiced concern that for past month and a half, pt has had increased tiredness/dizzy/shaking/gets tingling in neck/arms and very poor appetite History of Any Multi-Drug Resistant Organisms: None Reported Past Surgical History: Breast Surgery Additional Past Surgical History / Comment(s): left mastectomy-1995, R knee arthroscopy, nasal endoscopy, colonoscopy. Past Anesthesia/Blood Transfusion Reactions: No Reported Reaction Past Psychological History: Anxiety, Depression Smoking Status: Current every day smoker Past Alcohol Use History: None Reported Past Drug Use History: None Reported - Past Family History Father Additional Family Medical History / Comment(s): committed suicide Mother Family Medical History: Cancer Additional Family Medical History / Comment(s): cervical Sister(s) Family Medical History: Diabetes Mellitus Medications and Allergies Home Medications Medication Instructions Recorded Confirmed Type hydrALAZINE HCL [Apresoline] 50 mg PO TID 12/05/21 01/29/24 History Aspirin 81 mg PO DAILY #90 tab 12/07/21 01/29/24 Rx Atorvastatin [Lipitor] 40 mg PO DAILY #90 tab 12/07/21 01/29/24 Rx Nitroglycerin Sl Tabs [Nitrostat] 0.4 mg SUBLINGUAL Q5M PRN tab 12/07/21 01/29/24 Rx Propranolol [Inderal] 20 mg PO BID 10/23/22 01/29/24 History Famotidine [Pepcid] 20 mg PO BID 01/29/24 01/29/24 History Losartan [Cozaar] 50 mg PO DAILY 01/29/24 01/29/24 History Melatonin 10 mg PO HS PRN 01/29/24 01/29/24 History Mirtazapine [Remeron] 30 mg PO HS 01/29/24 01/29/24 History Ondansetron Odt [Zofran Odt] 4 mg PO Q12HR PRN 01/29/24 01/29/24 History Pantoprazole Sodium [Protonix] 40 mg PO BID 01/29/24 01/29/24 History amLODIPine [Norvasc] 5 mg PO DAILY 01/29/24 01/29/24 History Allergies Allergy/AdvReac Type Severity Reaction Status Date / Time No Known Allergies Allergy Verified 01/29/24 18:39 Physical Exam Vitals: Vital Signs Temp Pulse Resp BP Pulse Ox 01/30/24 08:35 84 22 169/66 97 01/30/24 07:49 98.4 F 71 20 181/73 96 01/30/24 06:00 73 17 180/66 96 01/30/24 05:00 68 24 138/80 96 01/30/24 04:15 74 22 133/105 96 01/30/24 03:26 89 20 191/76 96 01/30/24 02:30 71 14 187/80 96 01/30/24 00:26 67 15 157/62 97 01/29/24 20:00 85 18 138/99 97 01/29/24 18:30 74 20 225/83 98 01/29/24 16:56 73 16 203/106 97 01/29/24 15:21 97.9 F 83 18 202/69 98 Intake and Output 01/29/24 01/30/24 01/30/24 22:59 06:59 14:59 Other: Weight 47.174 kg Subjective: General: non toxic, no distress, appears at stated age, normal weight Derm: no unusual rashes/lesions, warm Head: atraumatic, normocephalic, symmetric Eyes: EOMI, no lid lag, anicteric sclera, pupils equal round reactive to light ENT: Nose and ears atraumatic Neck: No cervical lymphadenopathy, trachea midline, supple Mouth: no lip lesion, mucus membranes moist Cardiovascular: S1S2 reg, no murmur, positive dorsalis pedis pulse bilateral, no edema Lungs: Decreased air entry bilaterally, no rhonchi, no rales, no accessory muscle use Abdominal: soft, nontender to palpation, no guarding Ext: muscle strength 5 out of 5 in all 4 extremities grossly, no gross muscle atrophy, no contractures, +1 pitting edema in L foot and trace edema in R foot Neuro: CN II-XI grossly intact, no gross focal neuro deficits Psych: Alert, oriented, appropriate affect Results - Lab Results Most recent lab results Calcium 7.8 mg/dL (8.4-10.2) L 01/30/24 05:52 Magnesium 2.0 mg/dL (1.6-2.3) 01/30/24 05:52 01/31/24 05:10 01/31/24 05:10 Assessment and Plan Assessment: 1. SHERRON, r/o acute GN in view of hemauturia and protienuria potentially worsenin g of renal function due to hypertensive urgency on admission, renal ultrasound performed (not yet interpreted) 2. Hypertensive urgency, BP is better controlled since admission 3. New onset atrial fibrillation 4. Normocytic anemia, likely of chronic disease, r/o iron deficiency 5. COPD, not in acute exacerbation 6. CAD status post stent placement 7. Non- gap metabolic acidosis 2/2 to SHERRON 8. Hyperlipidemia Plan: - Continue NS 75 - Check serology, r/o underlying vasculitis - Change IV fluids to IV bicarb 50 - f/u on CXR - Cont. to hold losartan - F/u on u/s of kidneys - Consider workup of 2/2 causes of HTN - Avoid nephrotoxic agents - Repeat labs in the a.m. - Agree with changing propanolol to coreg - Thank you for the consultation, we will continue to follow the patient. Patient was seen and examined with the resident. Agree with resident's findings assessment and plan.
--- NOTE | 2024-01-30 13:27 | US ---
EXAMINATION TYPE: US renals and bladder DATE OF EXAM: 01/30/2024 COMPARISON: NONE CLINICAL INDICATION: Female, 83 years old with history of ; SHERRON EXAM MEASUREMENTS: Right Kidney: 9.0 x 4.1 x 3.6 cm Left Kidney: 9.3 x 5.1 x 3.8 cm Right Kidney: multiple cortical cysts noted, largest = 1.5 x 0.9 x 1.1cm. No hydronephrosis. Left Kidney: limited evaluation due to overlying bowel. Anechoic lesion = 1.3 x 1.2 x 1.3cm. No hydro nephrosis. Echogenic renal cortex on both sides. Bladder: not fully distended Bilateral Jets seen: no small amount of free fluid RUQ IMPRESSION: 1. Changes which suggests bilateral chronic medical renal disease. 2. Small renal cysts, more numerous on the right measuring up to 1.5 cm. 3. Mild abdominal ascites. Clinically correlate.
--- NOTE | 2024-01-30 13:33 | P.PN ---
Subjective Progress Note Date: 01/30/24 Subjective: Patient seen and examined at bedside. No chest pain, shortness of breath, abdominal pain. Patient voiding well. All Systems reviewed and pertinent positives and negatives noted in HPI, all ot her symptoms are negative Objective: Vital signs reviewed. General: non toxic, no distress, appears at stated age, underweight Derm: no unusual rashes/lesions, warm Head: atraumatic, normocephalic, symmetric Eyes: EOMI, no lid lag, anicteric sclera, pupils equal round reactive to light ENT: Nose and ears atraumatic Neck: No cervical lymphadenopathy, trachea midline, supple Mouth: no lip lesion, mucus membranes moist Cardiovascular: S1S2 reg, no murmur, positive dorsalis pedis pulse bilateral, no edema Lungs: CTA bilateral, no rhonchi, no rales, no accessory muscle use Abdominal: soft, nontender to palpation, no guarding Ext: muscle strength 5 out of 5 in all 4 extremities grossly, no gross muscle atrophy, no contractures, Neuro: CN II-XI grossly intact, no gross focal neuro deficits Psych: Alert, oriented, appropriate affect Data reviewed today: Labs: WBC 8.5, hemoglobin 8.0, hematocrit 25.8, MCV 94.3, platelet count 252, sodium 138, potassium 4.7, chloride 114, bicarb 18, anion gap 6, BUN 31, creatinine 3.48, EGFR 12, corrected calcium 9.1, albumin 2.5, TSH 4.5 Echocardiogram shows ejection fraction 55%. Normal LV size and preserved systolic function with mild concentric left ventricle hypertrophy. Renal ultrasound report pending Assessment and Plan: 83-year-old female with PMH of CKD stage II, hypertension, anemia, COPD (not on home oxygen) presented to the ER with abnormal lab values. Patient was admitted for acute on chronic kidney disease and hypertensive urgency. #SHERRON on CKD (stage II-III) Suspected etiologies: Hypertensive nephropathy versus glomerulonephritis BUN 31, creatinine 3.48 (baseline creatinine is 1.0), EGFR 12 (baseline eGFR 65) UA showed protein 3+, glucose 3+, urine blood moderate, urine RBC 69, urine WBC 23 Renal ultrasound order; results pending Glomerulonephritis workup: Total complement, complement C3, C4, BLOSSOM, ANCA, Nephrology consulted, ordered, hepatitis B and C serology, MPO antibody, serum and urine immunofixation Monitor intake and output Hold nephrotoxic medication #Hypertensive urgency #Chronic hypertension #Paroxysmal A-fib BP improving Blood pressure goal <160/<100 and first 24 hours with long-term goal < 140/< 90 Cardiology consulted Propranolol 20 mg p.o. twice daily was discontinued; added carvedilol 12.5 mg p.o. twice daily Continue with amlodipine 5 mg p.o. twice daily, hydralazine 50 mg p.o. 3 times daily Hold losartan due to SHERRON Patient is in sinus rhythm EKG interpreted independently show normal sinus rhythm Echocardiogram shows ejection fraction 55%. Normal LV size and preserved systolic function with mild concentric left ventricle hypertrophy. #Normocytic anemia, likely of chronic disease Hgb 8.7, MCV 93.1 Iron studies (01/28/2024) showed low transferrin of 182, rest of iron panel unremarkable Iron studies ordered Ordered LDH and haptoglobin to rule out intravascular hemolysis Patient with no active bleeding B12 and folate (01/28/2024) unremarkable Transfuse if Hgb is < 7 Follow-up CBC #Non Anion gap Metabolic acidosis chloride 114, bicarb 18, anion gap 6 Ordered urine sodium, urine potassium, urine chloride, urine pH -Nephrology also ordered sodium bicarb drip COPD, not in acute exacerbation Patient admits to shortness of breath (chronic, unchanged), denies cough or sputum production Place on DuoNeb 3 mL inhalation QID prn Symbicort (160-4.5 mcg inhaler) 2 puff inhalation twice daily #CAD s/p stent placement #Hyperlipidemia Continue atorvastatin 40 mg p.o. daily Continue aspirin 81 mg p.o. 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 twice daily CODE STATUS: Full Discussed with: Patient Anticipated discharge place: Home/SNF Patient is severely ill, needs close monitoring. Prognosis guarded. I have seen and evaluated the patient today. Discussed with the resident and agree with the residents finding and plan as documented in the resident's note. Changes highlighted in blue font. Objective - Vital Signs Vital signs: Vital Signs Temp 98.4 F 01/30/24 07:49 Pulse 84 01/30/24 08:35 Resp 22 01/30/24 08:35 BP 169/66 01/30/24 08:35 Pulse Ox 97 01/30/24 08:35 FiO2 Intake & Output 01/29/24 01/30/24 01/30/24 18:59 06:59 18:59 Weight 47.174 kg - Labs CBC & Chem 7: 01/30/24 05:52 01/30/24 05:52 Labs: Abnormal Lab Results - Last 24 Hours (Table) 01/29/24 01/29/24 01/29/24 Range/Units 17:06 17:06 17:06 RBC 2.96 L (3.80-5.40) m/uL Hgb 8.7 L (11.4-16.0) gm/dL Hct 27.5 L (34.0-46.0) % Chloride 115 H (98-107) mmol/L Carbon Dioxide 19 L (22-30) mmol/L BUN 33 H (7-17) mg/dL Creatinine 3.62 H (0.52-1.04) mg/dL Calcium 8.1 L (8.4-10.2) mg/dL Total Protein 5.6 L (6.3-8.2) g/dL Albumin 3.0 L (3.5-5.0) g/dL Urine Protein 3+ H (Negative) Urine Glucose (UA) 3+ H (Negative) Urine Blood Moderate H (Negative) Ur Leukocyte Esterase Trace H (Negative) Urine RBC 69 H (0-5) /hpf Urine WBC 23 H (0-5) /hpf Urine Bacteria Rare H (None) /hpf Urine Mucus Rare H (None) /hpf 01/30/24 01/30/24 Range/Units 05:52 05:52 RBC 2.73 L (3.80-5.40) m/uL Hgb 8.0 L (11.4-16.0) gm/dL Hct 25.8 L (34.0-46.0) % Chloride 114 H (98-107) mmol/L Carbon Dioxide 18 L (22-30) mmol/L BUN 31 H (7-17) mg/dL Creatinine 3.48 H (0.52-1.04) mg/dL Calcium 7.8 L (8.4-10.2) mg/dL Total Protein 4.7 L (6.3-8.2) g/dL Albumin 2.5 L (3.5-5.0) g/dL Urine Protein (Negative) Urine Glucose (UA) (Negative) Urine Blood (Negative) Ur Leukocyte Esterase (Negative) Urine RBC (0-5) /hpf Urine WBC (0-5) /hpf Urine Bacteria (None) /hpf Urine Mucus (None) /hpf
--- NOTE | 2024-01-30 13:46 | XR ---
EXAMINATION TYPE: XR chest 1V DATE OF EXAM: 01/30/2024 COMPARISON: 12/05/2021 HISTORY: 83-year-old female CHF TECHNIQUE: Single frontal view of the chest is obtained. FINDINGS: Heart borderline to mildly enlarged. Large rounded density projecting at the left mid and lower lung responding to patient left breast implant. Allowing for this limitation, no definite conso lidation or pleural effusion. IMPRESSION: Borderline to mild cardiomegaly. Left breast implant. No definite acute process.
[2024-01-30] MEDS: DEXTROSE 5% IN WATER 1,000 ML with SODIUM BICARB (1 MEQ/ML) 150 ML IV SCH (14:45)
[2024-01-30 17:24] LABS: % Iron Saturation 13.57 (12.00-45.00); Complement C3 92.1 mg/dL (80.0-207.0)
[2024-01-30 17:48] LABS: Ferritin 77.2 ng/mL (10.0-291.0)
[2024-01-30 19:27] LABS: Hepatitis B Surface AB- Quant 3.5 mIU/mL
[2024-01-30] MEDS: HEPARIN SODIUM,PORCINE 5,000 UNIT/ML 1 ML VIAL SQ SCH (20:13)
[2024-01-30] MEDS: MIRTAZAPINE 15 MG TAB PO SCH (20:13)
[2024-01-30 20:41] LABS: Hepatitis B Surface Antigen Nonreactive (Nonreactive); Hepatitis C IgG Antibody Nonreactive (Nonreactive)
[2024-01-30] MEDS: MELATONIN 5 MG TABLET PO PRN (22:16)
[2024-01-31 05:43] LABS: Basophils % (A) 0 %; Eosinophils % (A) 1 %; HCT 23.2 % (34.0-46.0); HGB 7.2 gm/dL (11.4-16.0); Hypochromasia Moderate; Lymphocytes # (A) 1.7 k/uL (1.0-4.8); Lymphocytes % (A) 23 %; MCH 29.2 pg (25.0-35.0); MCHC 31.2 g/dL (31.0-37.0); MCV 93.4 fL (80.0-100.0); Mean Platelet Volume 7.3; Monocytes # (A) 0.4 k/uL (0-1.0); Monocytes % (A) 5 %; Neutrophils # (A) 5.1 k/uL (1.3-7.7); Neutrophils % (A) 69 %; Platelet Count 231 k/uL (150-450); RBC 2.48 m/uL (3.80-5.40); RDW 14.9 % (11.5-15.5); WBC 7.3 k/uL (3.8-10.6)
[2024-01-31 05:51] LABS: African American GFR (CKD) 14 (>60 ml/min/1.73 sqM); Anion Gap 3 mmol/L; Blood Urea Nitrogen 31 mg/dL (7-17); Calcium 7.7 mg/dL (8.4-10.2); Carbon Dioxide 21 mmol/L (22-30); Chloride 112 mmol/L (98-107); Glucose 104 mg/dL (74-99); Non-African American GFR(CKD) 12 (>60 ml/min/1.73 sqM); Potassium 4.8 mmol/L (3.5-5.1); Sodium 136 mmol/L (137-145)
--- NOTE | 2024-01-31 13:15 | P.PN ---
Subjective Patient is seen for follow-up for acute kidney injury. Maintained on IV fluids. No significant complaints today. Serum creatinine remains about the same at 3.38 mg/dL today. Most of the serologies ordered for workup of possible underlying GN are pending. Objective - Vital Signs Vital signs: Vital Signs Temp 97.9 F 01/31/24 07:24 Pulse 64 01/31/24 07:40 Resp 16 01/31/24 07:40 BP 161/70 01/31/24 07:24 Pulse Ox 98 01/31/24 07:24 FiO2 Intake & Output 01/30/24 01/31/24 01/31/24 18:59 06:59 18:59 Weight 47.174 kg Other: Voiding Method Toilet # Voids 1 - Exam Patient is awake, comfortable, no acute distress. 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 - Labs CBC & Chem 7: 01/31/24 05:10 01/31/24 05:10 Labs: Abnormal Lab Results - Last 24 Hours (Table) 01/30/24 01/30/24 01/30/24 Range/Units 09:57 09:57 09:57 RBC (3.80-5.40) m/uL Hgb (11.4-16.0) gm/dL Hct (34.0-46.0) % Haptoglobin 215.0 H (31.2-198.0) mg/dL Sodium (137-145) mmol/L Chloride (98-107) mmol/L Carbon Dioxide (22-30) mmol/L BUN (7-17) mg/dL Creatinine (0.52-1.04) mg/dL Glucose (74-99) mg/dL Calcium (8.4-10.2) mg/dL Iron 27 L (50-170) UG/DL TIBC 199 L (228-460) UG/DL Transferrin 142.0 L 148.0 L (204.0-354.0) mg/dL Ur Random Sodium (40-220) mmol/L 01/30/24 01/31/24 01/31/24 Range/Units 14:43 05:10 05:10 RBC 2.48 L (3.80-5.40) m/uL Hgb 7.2 L (11.4-16.0) gm/dL Hct 23.2 L (34.0-46.0) % Haptoglobin (31.2-198.0) mg/dL Sodium 136 L (137-145) mmol/L Chloride 112 H (98-107) mmol/L Carbon Dioxide 21 L (22-30) mmol/L BUN 31 H (7-17) mg/dL Creatinine 3.38 H (0.52-1.04) mg/dL Glucose 104 H (74-99) mg/dL Calcium 7.7 L (8.4-10.2) mg/dL Iron (50-170) UG/DL TIBC (228-460) UG/DL Transferrin (204.0-354.0) mg/dL Ur Random Sodium 22 L (40-220) mmol/L Assessment and Plan Assessment: 1. SHERRON, r/o acute GN in view of hemauturia and protienuria potentially worsening of renal function due to hypertensive urgency on admission, renal ultrasound shows no evidence of obstructive uropathy. 2. Hypertensive urgency, BP is better controlled since admission. Obtain workup for secondary causes. No asymmetry noted on size of the kidneys to suggest underlying renal artery stenosis. 3. New onset atrial fibrillation 4. Normocytic anemia, likely of chronic disease. Iron deficiency noted 5. COPD, not in acute exacerbation 6. CAD status post stent placement 7. Non- gap metabolic acidosis 2/2 to SHERRON 8. Hyperlipidemia Plan: Continue with bicarb drip Add IV iron Add Aranesp Follow-up on serologies Check renin aldosterone levels Check stool for occult blood to rule out underlying GI bleed. Patient will need follow-up as outpatient.
[2024-01-31] MEDS: SODIUM FERRIC GLUCONAT-SUCROSE 125 MG in SODIUM CHLORIDE 0.9% 100 ML IVPB SCH (14:59)
[2024-01-31] MEDS: DARBEPOETIN ALFA 60 MCG/0.3 ML SYRINGE SQ SCH (16:02)
--- NOTE | 2024-01-31 17:05 | P.PN ---
Subjective Progress Note Date: 01/31/24 Subjective: Patient seen and examined at bedside. No chest pain, shortness of breath, abdominal pain. Patient voiding well. All Systems reviewed and pertinent positives and negatives noted in HPI, all o ther symptoms are negative Objective: Vital signs reviewed. General: non toxic, no distress, appears at stated age, underweight Derm: no unusual rashes/lesions, warm Head: atraumatic, normocephalic, symmetric Eyes: EOMI, no lid lag, anicteric sclera, pupils equal round reactive to light ENT: Nose and ears atraumatic Neck: No cervical lymphadenopathy, trachea midline, supple Mouth: no lip lesion, mucus membranes moist Cardiovascular: S1S2 reg, no murmur, positive dorsalis pedis pulse bilateral, no edema Lungs: CTA bilateral, no rhonchi, no rales, no accessory muscle use Abdominal: soft, nontender to palpation, no guarding Ext: muscle strength 5 out of 5 in all 4 extremities grossly, no gross muscle atrophy, no contractures, Neuro: CN II-XI grossly intact, no gross focal neuro deficits Psych: Alert, oriented, appropriate affect Data reviewed today: Labs: WBC 7.3, RBC 2.48, hemoglobin 7.2, hematocrit 23.2, sodium 136, potassium 4.8, chloride 112, bicarb 21, BUN 31, creatinine 3.38, EGFR 12, glucose under 4, calcium 10.7 Iron 27, TIBC 199, percent saturation 13, transferrin 148, ferritin 77, Urine sodium 22, urine potassium 52, C3 92, C4 15.9, Hepatitis B and C serology negative Reticulocyte count 1.8, haptoglobin 215 Assessment and Plan: 83-year-old female with PMH of CKD stage II, hypertension, anemia, COPD (not on home oxygen) presented to the ER with abnormal lab values. Patient was admitted for acute on chronic kidney disease and hypertensive urgency. #SHERRON on CKD (stage II-III) Suspected etiologies: Hypertensive nephropathy versus glomerulonephritis BUN 31, creatinine 3.38 (baseline creatinine is 1.0), EGFR 12 (baseline eGFR 65) UA showed protein 3+, glucose 3+, urine blood moderate, urine RBC 69, urine WBC 23 Renal ultrasound: No hydronephrosis Glomerulonephritis workup: Total complement, complement C3, C4, BLOSSOM, ANCA, (Complement C3 92, complement C4 15.9, rest is pending) Nephrology consulted: Ordered, hepatitis B and C serology, MPO antibody, serum and urine immunofixation, aldosterone and renin (Hepatitis B and C serology negative, rest is pending) Monitor intake and output Hold nephrotoxic medication #Hypertensive urgency #Chronic hypertension #Paroxysmal A-fib BP improving Blood pressure goal <160/<100 inpatient with long-term goal < 140/< 90 Cardiology consulted Propranolol 20 mg p.o. twice daily was discontinued; added carvedilol 12.5 mg p.o. twice daily Continue with amlodipine 5 mg p.o. twice daily, hydralazine 50 mg p.o. 3 times daily Hold losartan due to SHERRON Patient is in sinus rhythm EKG interpreted independently show normal sinus rhythm Echocardiogram shows ejection fraction 55%. Normal LV size and preserved systolic function with mild concentric left ventricle hypertrophy. # Anemia of the chronic disease with hypoproliferation Hgb 8.7, MCV 93.1 Iron studies:Iron 27, TIBC 199, percent saturation 13, transferrin 148, ferritin 77, Reticulocyte count 1.8, haptoglobin 215 Absolute reticulocyte count 1.2 reticulocyte index 0.59 Reticulocyte index <2 indicates hypoproliferation Patient with no active bleeding B12 and folate (01/28/2024) unremarkable Nephrology ordered darbepoetin 60 mcg subcu weekly and started IV iron daily Transfuse if Hgb is < 7 Follow-up CBC #Non Anion gap Metabolic acidosis chloride 112, bicarb 21, anion gap 3 Ordered urine sodium, urine potassium, urine chloride, urine pH Continue with bicarb drip per nephrology COPD, not in acute exacerbation Patient admits to shortness of breath (chronic, unchanged), denies cough or sputum production Place on DuoNeb 3 mL inhalation QID prn Symbicort (160-4.5 mcg inhaler) 2 puff inhalation twice daily #CAD s/p stent placement #Hyperlipidemia Continue atorvastatin 40 mg p.o. daily Continue aspirin 81 mg p.o. 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 twice daily CODE STATUS: Full Discussed with: Patient Anticipated discharge place: Home/SNF I have seen and evaluated the patient today. Discussed with the resident and agree with the residents finding and plan as documented in the resident's note. Changes highlighted in blue font. Objective - Vital Signs Vital signs: Vital Signs Temp 98.4 F 01/31/24 13:44 Pulse 91 01/31/24 13:44 Resp 15 01/31/24 13:44 BP 148/64 01/31/24 13:44 Pulse Ox 98 01/31/24 13:44 FiO2 Intake & Output 01/30/24 01/31/24 01/31/24 18:59 06:59 18:59 Weight 47.174 kg Other: Voiding Method Toilet # Voids 1 - Labs CBC & Chem 7: 01/31/24 05:10 01/31/24 05:10 Labs: Abnormal Lab Results - Last 24 Hours (Table) 01/30/24 01/30/24 01/30/24 Range/Units 09:57 09:57 09:57 RBC (3.80-5.40) m/uL Hgb (11.4-16.0) gm/dL Hct (34.0-46.0) % Haptoglobin 215.0 H (31.2-198.0) mg/dL Sodium (137-145) mmol/L Chloride (98-107) mmol/L Carbon Dioxide (22-30) mmol/L BUN (7-17) mg/dL Creatinine (0.52-1.04) mg/dL Glucose (74-99) mg/dL Calcium (8.4-10.2) mg/dL Iron 27 L (50-170) UG/DL TIBC 199 L (228-460) UG/DL Transferrin 142.0 L 148.0 L (204.0-354.0) mg/dL Ur Random Sodium (40-220) mmol/L 01/30/24 01/31/24 01/31/24 Range/Units 14:43 05:10 05:10 RBC 2.48 L (3.80-5.40) m/uL Hgb 7.2 L (11.4-16.0) gm/dL Hct 23.2 L (34.0-46.0) % Haptoglobin (31.2-198.0) mg/dL Sodium 136 L (137-145) mmol/L Chloride 112 H (98-107) mmol/L Carbon Dioxide 21 L (22-30) mmol/L BUN 31 H (7-17) mg/dL Creatinine 3.38 H (0.52-1.04) mg/dL Glucose 104 H (74-99) mg/dL Calcium 7.7 L (8.4-10.2) mg/dL Iron (50-170) UG/DL TIBC (228-460) UG/DL Transferrin (204.0-354.0) mg/dL Ur Random Sodium 22 L (40-220) mmol/L
--- NOTE | 2024-01-31 20:56 | P.PN ---
Subjective Progress Note Date: 01/31/24 HISTORY OF PRESENT ILLNESS: This is a 83-year-old female with a past medical history significant for co ronary artery disease, hypertension, hyperlipidemia, and peripheral vascular disease. Patient follows in the office with Dr. Mccoy. We have been asked to see the patient in consultation for atrial fibrillation. Patient examined at the bedside in the emergency room. Patient states she was called by her primary care physician to come to the emergency room secondary to abnormal labs. Patient was noted to be in acute renal failure. Patient does report shortness of breath. She denies any chest pain or pressure. Cardiology was consulted secondary to atrial fibrillation. EKG interpreted by computer as atrial fibrillation. However upon personal review of EKG by Dr. Maria patient is in sinus mechanism. Progress note January 31, 2024 Patient is doing well from cardiovascular standpoint. Blood pressure is better controlled. DIAGNOSTICS: - EKG reveals sinus mechanism - Laboratory data: WBC 8.5. Hemoglobin 8.0. Platelet count 252. Sodium 138. Potassium 4.7. BUN 31. Creatinine 3.48. Magnesium 2.0. TSH 4.510. - Current home cardiac medications include Inderal 20 mg twice a day, hydralazine 50 mg 3 times a day, amlodipine 5 mg daily, losartan 50 mg daily, Lipitor 40 mg daily, aspirin 81 mg daily - Most recent echocardiogram obtained in September 2023 revealed normal EF, mild TR, mild MR -Patient underwent exercise stress test in December 2021 which was nondiagnostic -Patient underwent cardiac catheterization in November 2021 with stenting to the mid LAD REVIEW OF SYSTEMS: At the time of my exam: CONSTITUTIONAL: Denies fever or chills. HEENT: Denies blurred vision, vision changes, or eye pain. Denies hemoptysis CARDIOVASCULAR: Denies chest pain. Denies orthopnea. Denies PND. Denies palpitations RESPIRATORY: Denies shortness of breath. GASTROINTESTINAL: Denies abdominal pain. Denies nausea or vomiting. HEMATOLOGIC: Denies bleeding disorders. GENITOURINARY: Denies any blood in urine. SKIN: Denies pruitis. Denies rash. PHYSICAL EXAM: VITAL SIGNS: Reviewed. GENERAL: Well-developed in no acute distress. HEENT: Head is normocephalic. Pupils are equal, round. Sclerae anicteric. Mucous membranes of the mouth are moist. Neck supple. No JVD or thyromegaly LUNGS: Respirations even and unlabored. Lungs essentially clear to auscultation bilaterally. HEART: Regular rate and rhythm. S1 and S2 heard. ABDOMEN: Soft. Nondistended. Nontender. EXTREMITIES: Normal range of motion. No clubbing or cyanosis. Peripheral pulses intact. No lower extremity edema NEUROLOGIC: Awake and alert. Oriented x 3. ASSESSMENT: Hypertensive urgency Atrial fibrillation, ruled out, EKG and telemetry reveals sinus mechanism Acute on chronic kidney disease Coronary artery disease with previous stenting to the mid LAD, 2021 Peripheral vascular disease Hypertension Hyperlipidemia Echocardiogram shows preserved LVEF with mild concentric LVH, small epicardial fat/small pericardial effusion. PLAN: Atrial fibrillation, ruled out, EKG and telemetry reveals sinus mechanism Increase amlodipine to 5 mg twice a day Discontinue Inderal. Begin carvedilol 12.5 mg twice a day Hold losartan secondary to SHERRON Continue to monitor kidney function Patient is otherwise cleared from cardiovascular standpoint. 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 Cardiology team will sign off. Please reconsult us in case of any question Objective - Vital Signs Vital signs: Vital Signs Temp 98.4 F 01/31/24 13:44 Pulse 91 01/31/24 13:44 Resp 15 01/31/24 13:44 BP 148/64 01/31/24 13:44 Pulse Ox 98 01/31/24 13:44 FiO2 Intake & Output 01/31/24 01/31/24 02/01/24 06:59 18:59 06:59 Weight 47.174 kg Other: Voiding Method Toilet # Voids 1 5 - Labs CBC & Chem 7: 01/31/24 05:10 01/31/24 05:10 Labs: Abnormal Lab Results - Last 24 Hours (Table) 01/31/24 01/31/24 Range/Units 05:10 05:10 RBC 2.48 L (3.80-5.40) m/uL Hgb 7.2 L (11.4-16.0) gm/dL Hct 23.2 L (34.0-46.0) % Sodium 136 L (137-145) mmol/L Chloride 112 H (98-107) mmol/L Carbon Dioxide 21 L (22-30) mmol/L BUN 31 H (7-17) mg/dL Creatinine 3.38 H (0.52-1.04) mg/dL Glucose 104 H (74-99) mg/dL Calcium 7.7 L (8.4-10.2) mg/dL
[2024-02-01 06:12] LABS: Basophils % (A) 1 %; Eosinophils % (A) 1 %; HCT 22.4 % (34.0-46.0); HGB 7.3 gm/dL (11.4-16.0); Lymphocytes # (A) 1.8 k/uL (1.0-4.8); Lymphocytes % (A) 28 %; MCH 30.2 pg (25.0-35.0); MCHC 32.5 g/dL (31.0-37.0); MCV 92.8 fL (80.0-100.0); Monocytes # (A) 0.4 k/uL (0-1.0); Monocytes % (A) 6 %; Neutrophils # (A) 4.1 k/uL (1.3-7.7); Neutrophils % (A) 64 %; Platelet Count 223 k/uL (150-450); RBC 2.42 m/uL (3.80-5.40); RDW 15.3 % (11.5-15.5); WBC 6.4 k/uL (3.8-10.6)
[2024-02-01 06:32] LABS: African American GFR (CKD) 15 (>60 ml/min/1.73 sqM); Anion Gap 3 mmol/L; Blood Urea Nitrogen 28 mg/dL (7-17); Calcium 7.5 mg/dL (8.4-10.2); Carbon Dioxide 25 mmol/L (22-30); Chloride 112 mmol/L (98-107); Glucose 95 mg/dL (74-99); Non-African American GFR(CKD) 13 (>60 ml/min/1.73 sqM); Sodium 140 mmol/L (137-145)
--- NOTE | 2024-02-01 12:03 | P.PN ---
Subjective Progress Note Date: 02/01/24 Subjective: Patient seen and examined at bedside. No new events. Voiding well. All Systems reviewed and pertinent positives and negatives noted in HPI, all other symptoms are negative Objective: Vital signs reviewed. General: non toxic, no distress, appears at stated age, underweight Derm: no unusual rashes/lesions, warm Head: atraumatic, normocephalic, symmetric Eyes: EOMI, no lid lag, anicteric sclera, pupils equal round reactive to light ENT: Nose and ears atraumatic Neck: No cervical lymphadenopathy, trachea midline, supple Mouth: no lip lesion, mucus membranes moist Cardiovascular: S1S2 reg, no murmur, positive dorsalis pedis pulse bilateral, no edema Lungs: CTA bilateral, no rhonchi, no rales, no accessory muscle use Abdominal: soft, nontender to palpation, no guarding Ext: muscle strength 5 out of 5 in all 4 extremities grossly, no gross muscle atrophy, no contractures, Neuro: CN II-XI grossly intact, no gross focal neuro deficits Psych: Alert, oriented, appropriate affect Data reviewed today: Labs: WBC 6.4, hemoglobin 7.3, bicarb 25, creatinine 3.1 Assessment and Plan: 83-year-old female with PMH of CKD stage II, hypertension, anemia, COPD (not on home oxygen) presented to the ER with abnormal lab values. Patient was admitted for acute on chronic kidney disease and hypertensive urgency. # Nonoliguric SHERRON on CKD (stage II-III), improving Suspected etiologies: Hypertensive nephropathy versus glomerulonephritis Complete workup pending -Nephrology following #Hypertensive urgency #Chronic hypertension #Paroxysmal A-fib Continue amlodipine 5 twice daily, Coreg 12.5 twice daily, hydralazine 50 3 times daily -Not on anticoagulation # Anemia of the chronic disease with hypoproliferation On IV iron daily, darbepoetin weekly #Non Anion gap Metabolic acidosis, resolved Discontinued bicarb drip COPD, not in acute exacerbation -Continue to monitor #CAD s/p stent placement #Hyperlipidemia Continue atorvastatin 40 mg p.o. daily Continue aspirin 81 mg p.o. 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 twice daily CODE STATUS: Full Discussed with: Patient Anticipated discharge place: Home Objective - Vital Signs Vital signs: Vital Signs Temp 98.1 F 02/01/24 07:20 Pulse 66 02/01/24 08:50 Resp 17 02/01/24 08:50 BP 190/72 02/01/24 07:20 Pulse Ox 94 L 02/01/24 07:20 FiO2 Intake & Output 01/31/24 02/01/24 02/01/24 18:59 06:59 18:59 Other: Voiding Method Toilet Toilet Toilet # Voids 5 1 1 # Bowel Movements 2 - Labs CBC & Chem 7: 02/01/24 05:40 02/01/24 05:40 Labs: Abnormal Lab Results - Last 24 Hours (Table) 02/01/24 02/01/24 Range/Units 05:40 05:40 RBC 2.42 L (3.80-5.40) m/uL Hgb 7.3 L (11.4-16.0) gm/dL Hct 22.4 L (34.0-46.0) % Chloride 112 H (98-107) mmol/L BUN 28 H (7-17) mg/dL Creatinine 3.10 H (0.52-1.04) mg/dL Calcium 7.5 L (8.4-10.2) mg/dL
--- NOTE | 2024-02-01 12:37 | P.PN ---
Subjective Patient is seen for follow-up for acute kidney injury. Maintained on IV fluids. No significant complaints today. Serum creatinine improved to 3.1 today. Most of the serologies ordered for workup of possible underlying GN are pending. Objective - Vital Signs Vital signs: Vital Signs Temp 98.1 F 02/01/24 07:20 Pulse 66 02/01/24 08:50 Resp 17 02/01/24 08:50 BP 190/72 02/01/24 07:20 Pulse Ox 94 L 02/01/24 07:20 FiO2 Intake & Output 01/31/24 02/01/24 02/01/24 18:59 06:59 18:59 Other: Voiding Method Toilet Toilet Toilet # Voids 5 1 1 # Bowel Movements 2 - Exam Patient is awake, comfortable, no acute distress. 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 SHERRON, r/o acute GN in view of hemauturia and protienuria with potential worsening of renal function due to hypertensive urgency on admission, renal ultrasound shows no evidence of obstructive uropathy. Urine eosinophils are negative. Mild improvement in renal function with IV hydration. Serologies are pending. 2. Hypertensive urgency, BP is better controlled since admission. Obtain workup for secondary causes. No asymmetry noted on size of the kidneys to suggest underlying renal artery stenosis. 3. New onset atrial fibrillation 4. Normocytic anemia, likely of chronic disease. Iron deficiency noted 5. COPD, not in acute exacerbation 6. CAD status post stent placement 7. Non- gap metabolic acidosis 2/2 to SHERRON 8. Hyperlipidemia Plan: DC IV fluids. Follow-up on serologies. Continue Aranesp Patient will need close follow-up as outpatient.
[2024-02-02 09:05] LABS: BUN/Creat Ratio 7.48 Ratio (12.00-20.00); Blood Urea Nitrogen 23.2 mg/dL (9.0-27.0); Calcium 7.7 mg/dL (8.7-10.3); Chloride 111 mmol/L (96-109); Glucose 93 mg/dL (70-110); Potassium 4.3 mmol/L (3.5-5.5); Sodium 143 mmol/L (135-145)
[2024-02-02 09:55] LABS: Basophils # (A) 0.07 X 10*3/uL (0.00-0.10); Basophils % (A) 0.9 %; Eosinophils # (A) 0.01 X 10*3/uL (0.04-0.35); Eosinophils % (A) 0.1 %; HCT 21.9 % (37.2-46.3); HGB 6.7 g/dL (12.0-15.0); Lymphocytes # (A) 2.11 X 10*3/uL (0.90-5.00); Lymphocytes % (A) 27.6 %; MCHC 30.6 g/dL (32.0-37.0); MCV 94.8 FL (80.0-97.0); Mean Platelet Volume 11.3 FL (9.5-12.2); Monocytes % (A) 9.2 %; NRBC Per 100 WBC 0 X 10*3/uL (0.00-0.01); Neutrophils # (A) 4.69 X 10*3/uL (1.80-7.70); Neutrophils % (A) 61.4 %; Platelet Count 218 X 10*3/uL (140-440); RBC 2.31 X 10*6/uL (4.10-5.20); WBC 7.64 X 10*3/uL (4.50-10.00)
--- NOTE | 2024-02-02 10:50 | P.PN ---
Subjective Patient is seen in follow-up for acute kidney injury. Creatinine stable at 3.1. Blood pressure better controlled. Hemoglobin 6.7 today. Denies any active bleeding. Does admit to dyspnea. No chest pain. Has been voiding. No gross hematuria. Vital signs are stable. General: No acute distress. HEENT: Head exam is unremarkable. LUNGS: No audible rhonchi or wheezes. HEART: Rate and Rhythm are regular. ABDOMEN: Nontender. EXTREMITITES: No edema. Objective - Vital Signs Vital signs: Vital Signs Temp 98.8 F 02/02/24 07:50 Pulse 62 02/02/24 07:50 Resp 17 02/02/24 07:50 BP 148/50 02/02/24 07:50 Pulse Ox 96 02/02/24 07:50 FiO2 Intake & Output 02/01/24 02/02/24 02/02/24 18:59 06:59 18:59 Other: Voiding Method Toilet Toilet # Voids 2 1 # Bowel Movements 2 - Labs CBC & Chem 7: 02/02/24 05:12 02/02/24 05:12 Labs: Abnormal Lab Results - Last 24 Hours (Table) 02/01/24 02/01/24 02/02/24 Range/Units 05:40 05:40 05:12 RBC 2.31 L (4.10-5.20) X 10*6/uL Hgb 6.7 A* (12.0-15.0) g/dL Hct 21.9 L (37.2-46.3) % MCHC 30.6 L (32.0-37.0) g/dL RDW 15.0 H (11.5-14.5) % Immature Gran # 0.06 H (0.00-0.04) X 10*3/uL Eosinophils # 0.01 L (0.04-0.35) X 10*3/uL Chloride (96-109) mmol/L Creatinine (0.6-1.5) mg/dL Est GFR (CKD-EPI) (>=60) BUN/Creatinine Ratio (12.00-20.00) Ratio Calcium (8.7-10.3) mg/dL Vitamin D 25-Hydroxy 12.3 L (30.0-100.0) ng/mL PTH Intact 113.0 H (14.0-72.0) pg/mL 02/02/24 Range/Units 05:12 RBC (4.10-5.20) X 10*6/uL Hgb (12.0-15.0) g/dL Hct (37.2-46.3) % MCHC (32.0-37.0) g/dL RDW (11.5-14.5) % Immature Gran # (0.00-0.04) X 10*3/uL Eosinophils # (0.04-0.35) X 10*3/uL Chloride 111 H (96-109) mmol/L Creatinine 3.1 H (0.6-1.5) mg/dL Est GFR (CKD-EPI) 14 L (>=60) BUN/Creatinine Ratio 7.48 L (12.00-20.00) Ratio Calcium 7.7 L (8.7-10.3) mg/dL Vitamin D 25-Hydroxy (30.0-100.0) ng/mL PTH Intact (14.0-72.0) pg/mL Assessment and Plan Plan: Assessment: 1. Acute kidney injury secondary to hemodynamic ATN. Creatinine 3.62 on admission and stable at 3.1. Creatinine noted to be 2.8 dated October 30, 2023. Creatinine 1.0 in January 2023. Questionable GN with proteinuria and hematuria on UA. Urine eosinophils negative. 2. Acute blood loss anemia scheduled to receive a unit of blood today. R eceiving IV iron. On Aranesp. 3. Hypertensive urgency. Better controlled. 4. Metabolic acidosis secondary to acute kidney injury. 5. Tobacco abuse. Plan: Repeat UA. IV DDAVP x 1 dose today. Scheduled to receive a unit of blood today. Increase dose of hydralazine. Follow-up serologies. Hepatitis panel negative. Complement levels normal. Discussed kidney biopsy for definitive diagnosis. Unsure at this time. Continue to monitor renal function and urine output. Follow-up renin and aldosterone levels.
--- NOTE | 2024-02-02 12:14 | P.PN ---
Subjective Progress Note Date: 02/02/24 Subjective: Patient seen and examined at bedside. No chest pain, shortness of breath, abdominal pain. Patient voiding well. All Systems reviewed and pertinent positives and negatives noted in HPI, all o ther symptoms are negative Objective: Vital signs reviewed. General: non toxic, no distress, appears at stated age, underweight Derm: no unusual rashes/lesions, warm Head: atraumatic, normocephalic, symmetric Eyes: EOMI, no lid lag, anicteric sclera, pupils equal round reactive to light ENT: Nose and ears atraumatic Neck: No cervical lymphadenopathy, trachea midline, supple Mouth: no lip lesion, mucus membranes moist Cardiovascular: S1S2 reg, no murmur, positive dorsalis pedis pulse bilateral, no edema Lungs: CTA bilateral, no rhonchi, no rales, no accessory muscle use Abdominal: soft, nontender to palpation, no guarding Ext: muscle strength 5 out of 5 in all 4 extremities grossly, no gross muscle atrophy, no contractures, Neuro: CN II-XI grossly intact, no gross focal neuro deficits Psych: Alert, oriented, appropriate affect Data reviewed today: Labs: WBC 7.64, hemoglobin 6.7, hematocrit 21.9, sodium 143, potassium 4.3, chloride 111, bicarb 22, BUN 23.2, creatinine 3.1 No new imaging Assessment and Plan: 83-year-old female with PMH of CKD stage II, hypertension, anemia, COPD (not on home oxygen) presented to the ER with abnormal lab values. Patient was admitted for acute on chronic kidney disease and hypertensive urgency. Patient's hemoglobin dropped acutely and was transfused with 1 unit of PRBC. #SHERRON on CKD (stage II-III) Suspected etiologies: Hypertensive nephropathy versus glomerulonephritis Renal ultrasound: No hydronephrosis Glomerulonephritis workup: Complement levels unremarkable and hepatitis serology negative Results pending: BLOSSOM, ANCA, MPO antibody, serum and urine immunofixation, aldosterone and renin Monitor intake and output Hold nephrotoxic medication #Hypertensive urgency #Chronic hypertension #Paroxysmal A-fib BP improving Blood pressure goal <160/<100 inpatient with long-term goal < 140/< 90 Cardiology consulted Continue with carvedilol 12.5 mg p.o. twice daily, amlodipine 5 mg p.o. twice daily Hydralazine increased to 100 mg p.o. 3 times daily Hold losartan due to SHERRON Patient is in sinus rhythm EKG interpreted independently show normal sinus rhythm Echocardiogram shows ejection fraction 55%. Normal LV size and preserved systolic function with mild concentric left ventricle hypertrophy. # Normocytic anemia with element of both iron deficiency anemia and ACD Hemoglobin 6.7 Iron studies:Iron 27, TIBC 199, percent saturation 13, transferrin 148, ferritin 77, Reticulocyte count 1.8, haptoglobin 215 Patient denies active bleeding Continue with darbepoetin 60 mcg subcu weekly and IV iron daily DDAVP IVP once per nephrology Transfusion with 1 unit of PRBC Follow-up CBC in p.m. Workup for GI source of bleeding: - EGD and colonoscopy in 10/2022 was unremarkable; - Capsule endoscopy in 12/16 unremarkable; - MRI abdomen shows pancolonic diverticulosis with no suspicious abdominal mass Patient likely need repeat capsule endoscopy or colonoscopy as an outpatient to evaluate for diverticulosis #Non Anion gap Metabolic acidosis, resolved Bicarb drip discontinued #COPD, not in acute exacerbation Patient admits to shortness of breath (chronic, unchanged), denies cough or sputum production Place on DuoNeb 3 mL inhalation QID prn Symbicort (160-4.5 mcg inhaler) 2 puff inhalation twice daily #CAD s/p stent placement #Hyperlipidemia Continue atorvastatin 40 mg p.o. daily Continue aspirin 81 mg p.o. 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 twice daily CODE STATUS: Full Discussed with: Patient Anticipated discharge place: Home/SNF I have seen and evaluated the patient today. Discussed with the resident and agree with the residents finding and plan as documented in the resident's note. Patient feeling well. Hg 6.7. Plans for 1 unit PRBC. Previous GI workup negative. Repeat CBC tomorrow AM. Objective - Vital Signs Vital signs: Vital Signs Temp 98.8 F 02/02/24 07:50 Pulse 62 02/02/24 07:50 Resp 17 02/02/24 07:50 BP 148/50 02/02/24 07:50 Pulse Ox 96 02/02/24 07:50 FiO2 Intake & Output 02/01/24 02/02/24 02/02/24 18:59 06:59 18:59 Other: Voiding Method Toilet Toilet # Voids 2 1 # Bowel Movements 2 - Labs CBC & Chem 7: 02/02/24 05:12 02/02/24 05:12 Labs: Abnormal Lab Results - Last 24 Hours (Table) 02/01/24 02/01/24 02/02/24 Range/Units 05:40 05:40 05:12 RBC 2.31 L (4.10-5.20) X 10*6/uL Hgb 6.7 A* (12.0-15.0) g/dL Hct 21.9 L (37.2-46.3) % MCHC 30.6 L (32.0-37.0) g/dL RDW 15.0 H (11.5-14.5) % Immature Gran # 0.06 H (0.00-0.04) X 10*3/uL Eosinophils # 0.01 L (0.04-0.35) X 10*3/uL Chloride (96-109) mmol/L Creatinine (0.6-1.5) mg/dL Est GFR (CKD-EPI) (>=60) BUN/Creatinine Ratio (12.00-20.00) Ratio Calcium (8.7-10.3) mg/dL Vitamin D 25-Hydroxy 12.3 L (30.0-100.0) ng/mL PTH Intact 113.0 H (14.0-72.0) pg/mL 02/02/24 Range/Units 05:12 RBC (4.10-5.20) X 10*6/uL Hgb (12.0-15.0) g/dL Hct (37.2-46.3) % MCHC (32.0-37.0) g/dL RDW (11.5-14.5) % Immature Gran # (0.00-0.04) X 10*3/uL Eosinophils # (0.04-0.35) X 10*3/uL Chloride 111 H (96-109) mmol/L Creatinine 3.1 H (0.6-1.5) mg/dL Est GFR (CKD-EPI) 14 L (>=60) BUN/Creatinine Ratio 7.48 L (12.00-20.00) Ratio Calcium 7.7 L (8.7-10.3) mg/dL Vitamin D 25-Hydroxy (30.0-100.0) ng/mL PTH Intact (14.0-72.0) pg/mL
[2024-02-02] MEDS: DESMOPRESSIN ACETATE 14 MCG in SODIUM CHLORIDE 0.9% 50 ML IVPB ONE (12:46)
[2024-02-02] MEDS: hydrALAZINE HCL 50 MG TAB PO SCH (15:48)
[2024-02-02 20:05] LABS: Basophils % (A) 1 %; Eosinophils % (A) 1 %; HCT 26.1 % (34.0-46.0); HGB 8.3 gm/dL (11.4-16.0); Hypochromasia Moderate; Lymphocytes # (A) 1.8 k/uL (1.0-4.8); Lymphocytes % (A) 24 %; MCH 29.8 pg (25.0-35.0); MCHC 31.6 g/dL (31.0-37.0); Mean Platelet Volume 7.7; Monocytes # (A) 0.5 k/uL (0-1.0); Monocytes % (A) 7 %; Neutrophils # (A) 4.9 k/uL (1.3-7.7); Neutrophils % (A) 66 %; Platelet Count 232 k/uL (150-450); RBC 2.78 m/uL (3.80-5.40); RDW 15.1 % (11.5-15.5); WBC 7.4 k/uL (3.8-10.6)
[2024-02-02 22:01] LABS: Appearance,Urine Clear (Clear); Bilirubin,Urine Negative (Negative); Blood,Urine Moderate (Negative); Color,Urine Light Yellow; Glucose,Urine (UA) 3+ (Negative); Ketones,Urine Negative (Negative); Leukocyte Esterase,Urine Trace (Negative); Mucus,Urine Rare /hpf; Nitrite,Urine Negative (Negative); PH, Urine 7.5 (5.0-8.0); Protein,Urine 3+ (Negative); RBC,Urine 51 /hpf (0-5); Specific Gravity,Urine 1.014 (1.001-1.035); Urobilinogen,Urine <2.0 mg/dL (<2.0); WBC,Urine 14 /hpf (0-5)
[2024-02-03 05:47] LABS: Basophils # (A) 0.1 k/uL (0-0.2); Basophils % (A) 1 %; Eosinophils % (A) 0 %; HCT 24.3 % (34.0-46.0); Lymphocytes # (A) 1.6 k/uL (1.0-4.8); Lymphocytes % (A) 18 %; MCH 30.5 pg (25.0-35.0); MCHC 32.9 g/dL (31.0-37.0); MCV 92.9 fL (80.0-100.0); Mean Platelet Volume 8.5; Monocytes # (A) 0.5 k/uL (0-1.0); Monocytes % (A) 6 %; Neutrophils # (A) 6.3 k/uL (1.3-7.7); Neutrophils % (A) 73 %; Platelet Count 214 k/uL (150-450); RBC 2.61 m/uL (3.80-5.40); RDW 15.6 % (11.5-15.5); WBC 8.6 k/uL (3.8-10.6)
[2024-02-03 08:50] LABS: BUN/Creat Ratio 7.68 Ratio (12.00-20.00); Blood Urea Nitrogen 21.5 mg/dL (9.0-27.0); Chloride 112 mmol/L (96-109); Glucose 99 mg/dL (70-110); Magnesium 1.9 mg/dL (1.5-2.4); Phosphorus 4.8 mg/dL (2.4-5.1); Potassium 3.6 mmol/L (3.5-5.5); Sodium 144 mmol/L (135-145)
--- NOTE | 2024-02-03 10:38 | XR ---
EXAMINATION TYPE: XR chest 1V portable DATE OF EXAM: 02/03/2024 HISTORY: Shortness of breath. COMPARISON: 01/30/2024 TECHNIQUE: Single view of the chest is submitted. FINDINGS: Demonstrated are scattered senescent parenchymal change. Interval development of pulmonary venous congestion with small effusions and cardiomegaly. Infiltrate s of other etiology are not excluded. Hilar and mediastinal structures are within normal limits. Degenerative changes are seen of the dorsal spine. IMPRESSION: 1. Interval development of pulmonary venous congestion with small effusions and cardiomegaly. Infilt rates of other etiology are not excluded.
--- NOTE | 2024-02-03 11:51 | P.PN ---
Subjective Patient is seen in follow-up for acute kidney injury. Renal function slightly improved. Hemoglobin improved post blood transfusion. Does admit to dyspnea. No chest pain. Has been voiding. No gross hematuria. Vital signs are stable. General: No acute distress. HEENT: Head exam is unremarkable. LUNGS: No audible rhonchi or wheezes. HEART: Rate and Rhythm are regular. ABDOMEN: Nontender. EXTREMITITES: No edema. Objective - Vital Signs Vital signs: Vital Signs Temp 97.8 F 02/03/24 07:06 Pulse 75 02/03/24 07:06 Resp 16 02/03/24 07:06 BP 198/64 02/03/24 07:06 Pulse Ox 93 L 02/03/24 07:06 FiO2 Intake & Output 02/02/24 02/03/24 02/03/24 18:59 06:59 18:59 Intake Total 450 Balance 450 Intake: Intake, IV Titration 150 Amount Desmopressin Acetate 14 50 mcg In Sodium Chloride 0. 9% 50 ml @ 200 mls/hr IVPB ONCE ONE Rx#: [id number] Sodium Ferric Gluconat- 100 Sucrose 125 mg In Sodium Chloride 0.9% 100 ml @ 100 mls/hr IVPB DAILY [facility] Rx#:[id number] Blood Product 300 Rc As-1 Unit 0 [id number] Other: Voiding Method Toilet # Voids 1 - Labs CBC & Chem 7: 02/03/24 05:24 02/03/24 05:24 Labs: Abnormal Lab Results - Last 24 Hours (Table) 01/30/24 01/31/24 02/02/24 Range/Units 12:55 05:10 10:27 RBC (3.80-5.40) m/uL Hgb (11.4-16.0) gm/dL Hct (34.0-46.0) % RDW (11.5-15.5) % Chloride (96-109) mmol/L Carbon Dioxide (21.6-31.8) mmol/L Creatinine (0.6-1.5) mg/dL Est GFR (CKD-EPI) (>=60) BUN/Creatinine Ratio (12.00-20.00) Ratio Calcium (8.7-10.3) mg/dL RBC Folate 1,050 H (280 - 791) ng/mL Urine Protein (Negative) Urine Glucose (UA) (Negative) Urine Blood (Negative) Ur Leukocyte Esterase (Negative) Urine RBC (0-5) /hpf Urine WBC (0-5) /hpf Urine Mucus (None) /hpf Myeloperoxidase Ab 12.0 H (<3.5) U/mL Crossmatch See Detail 02/02/24 02/02/24 02/03/24 Range/Units 19:57 21:34 05:24 RBC 2.78 L (3.80-5.40) m/uL Hgb 8.3 L (11.4-16.0) gm/dL Hct 26.1 L (34.0-46.0) % RDW (11.5-15.5) % Chloride 112 H (96-109) mmol/L Carbon Dioxide 21.0 L (21.6-31.8) mmol/L Creatinine 2.8 H (0.6-1.5) mg/dL Est GFR (CKD-EPI) 16 L (>=60) BUN/Creatinine Ratio 7.68 L (12.00-20.00) Ratio Calcium 8.0 L (8.7-10.3) mg/dL RBC Folate (280 - 791) ng/mL Urine Protein 3+ H (Negative) Urine Glucose (UA) 3+ H (Negative) Urine Blood Moderate H (Negative) Ur Leukocyte Esterase Trace H (Negative) Urine RBC 51 H (0-5) /hpf Urine WBC 14 H (0-5) /hpf Urine Mucus Rare H (None) /hpf Myeloperoxidase Ab (<3.5) U/mL Crossmatch 02/03/24 Range/Units 05:24 RBC 2.61 L (3.80-5.40) m/uL Hgb 8.0 L (11.4-16.0) gm/dL Hct 24.3 L (34.0-46.0) % RDW 15.6 H (11.5-15.5) % Chloride (96-109) mmol/L Carbon Dioxide (21.6-31.8) mmol/L Creatinine (0.6-1.5) mg/dL Est GFR (CKD-EPI) (>=60) BUN/Creatinine Ratio (12.00-20.00) Ratio Calcium (8.7-10.3) mg/dL RBC Folate (280 - 791) ng/mL Urine Protein (Negative) Urine Glucose (UA) (Negative) Urine Blood (Negative) Ur Leukocyte Esterase (Negative) Urine RBC (0-5) /hpf Urine WBC (0-5) /hpf Urine Mucus (None) /hpf Myeloperoxidase Ab (<3.5) U/mL Crossmatch Assessment and Plan Plan: Assessment: 1. Acute kidney injury secondary to hemodynamic ATN. Creatinine 3.62 on admission and is improved to 2.8 today. Creatinine noted to be 2.8 dated October 30, 2023. Creatinine 1.0 in January 2023. Concern for GN with proteinuria and hematuria on UA. MPO antibody elevated. Urine eosinophils negative. 2. Acute blood loss anemia status post blood transfusion this admission. Status post IV iron. On Aranesp. Also received IV DDAVP. 3. Hypertensive urgency. Aldosterone level not elevated. 4. Metabolic acidosis secondary to acute kidney injury. 5. Tobacco abuse. 6. Volume overload. Plan: Add lasix 40 mg IV daily. Increase dose of Coreg. Follow-up serologies. Hepatitis panel negative. Complement levels normal. MPO antibody elevated. Per attending physician, ANCA titers also elevated. 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 Again discussed kidney biopsy for definitive diagnosis and treatment management. Patient now agreeable. Consult IR for kidney biopsy. DDAVP 1 hour prior to kidney biopsy. Start IV Solu-Medrol 1 g daily for 3 days. Will then transition to oral prednisone. Treatment with Cytoxan versus Rituxan once biopsy results available. Continue to monitor renal function and urine output. Discussed at length with patient as well as primary team and RN present at bedside. If biopsy cannot be done at this facility this week, then recommend transfer to another facility. Also check anti-GBM antibody.
[2024-02-03] MEDS: FUROSEMIDE 10 MG/ML 4 ML VIAL IV SCH (11:57)
[2024-02-03] MEDS ORDERED: DESMOPRESSIN ACETATE 14 MCG in SODIUM CHLORIDE 0.9% 50 ML IVPB PRN (12:00)
[2024-02-03] MEDS: methylPREDNISolone SOD SUCCIN 1,000 MG in SODIUM CHLORIDE 0.9% 250 ML IVPB SCH (12:48)
--- NOTE | 2024-02-03 14:22 | P.PN ---
Subjective Progress Note Date: 02/03/24 Subjective: Patient seen and examined at bedside. 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 No chest pain, or abdominal pain. Patient voiding well. All Systems reviewed and pertinent positives and negatives noted in HPI, all other symptoms are negative Objective: Vital signs reviewed. General: non toxic, no distress, appears at stated age, underweight Derm: no unusual rashes/lesions, warm Head: atraumatic, normocephalic, symmetric Eyes: EOMI, no lid lag, anicteric sclera, pupils equal round reactive to light ENT: Nose and ears atraumatic Neck: No cervical lymphadenopathy, trachea midline, supple Mouth: no lip lesion, mucus membranes moist Cardiovascular: S1S2 reg, no murmur, positive dorsalis pedis pulse bilateral, no edema Lungs: Decreased breath sounds bilaterally, no rhonchi, no rales, no accessory muscle use Abdominal: soft, nontender to palpation, no guarding Ext: muscle strength 5 out of 5 in all 4 extremities grossly, no gross muscle atrophy, no contractures, Neuro: CN II-XI grossly intact, no gross focal neuro deficits Psych: Alert, oriented, appropriate affect Data reviewed today: Labs: WBC 8.6, hemoglobin 8.0, sodium 144, potassium 3.6, chloride 112, bicarb 21, creatinine 2.8, GFR 16 Myeloperoxidase antibody positive, and ANCA positive Chest x-ray shows pulmonary venous congestion with small bilateral effusions and cardiomegaly. Assessment and Plan: 83-year-old female with PMH of CAD status post stent, CKD stage II, hypertension, anemia, COPD (not on home oxygen) presented to the ER with abnormal lab values. Patient was admitted for acute on chronic kidney disease and hypertensive urgency. Patient's hemoglobin dropped acutely and was transfused with 1 unit of PRBC. Hemoglobin improved to 8.0 post 1 unit of PRBC. N.p.o. and ANCA positive for glomerulonephritis etiology. Patient to be transferred to [facility] for renal biopsy. #SHERRON on CKD (stage II-III) Suspected etiologies: Likely glomerulonephritis Renal ultrasound: No hydronephrosis Glomerulonephritis workup: Complement levels unremarkable and hepatitis serology negative ANCA and MPO antibody positive Patient to be transferred to [facility] for renal biopsy for definitive diagnosis and further treatment management. Nephrology on board; case discussed; start IV Solu-Medrol 1 g daily for 3 days and then transition to oral prednisone Monitor intake and output Hold nephrotoxic medication #Dyspnea secondary to hypervolemia #COPD, not in acute exacerbation Patient admits to shortness of breath (chronic, unchanged), denies cough or sputum production Place on DuoNeb 3 mL inhalation QID prn Symbicort (160-4.5 mcg inhaler) 2 puff inhalation twice daily Chest x-ray shows pulmonary venous congestion with small bilateral effusions and cardiomegaly. IV Lasix 40 mg daily #Hypertensive urgency #Chronic hypertension #Paroxysmal A-fib BP improving Blood pressure goal <160/<100 inpatient with long-term goal < 140/< 90 Cardiology consulted Carvedilol increased to 25 mg p.o. twice daily; continue with amlodipine 5 mg p.o. twice daily and hydralazine 100 mg p.o. 3 times daily Hold losartan due to SHERRON Patient is in sinus rhythm EKG interpreted independently show normal sinus rhythm Echocardiogram shows ejection fraction 55%. Normal LV size and preserved systolic function with mild concentric left ventricle hypertrophy. # Normocytic anemia with element of both iron deficiency anemia and ACD Hemoglobin 8.0 Iron studies:Iron 27, TIBC 199, percent saturation 13, transferrin 148, ferritin 77, Reticulocyte count 1.8, haptoglobin 215 Patient denies active bleeding Continue with darbepoetin 60 mcg subcu weekly and IV iron daily Follow-up CBC in p.m. Workup for GI source of bleeding: - EGD and colonoscopy in 10/2022 was unremarkable; - Capsule endoscopy in 12/16 unremarkable; - MRI abdomen shows pancolonic diverticulosis with no suspicious abdominal mass Patient likely need repeat capsule endoscopy or colonoscopy as an outpatient to evaluate for diverticulosis #Non Anion gap Metabolic acidosis, resolved Bicarb drip discontinued #CAD s/p stent placement #Hyperlipidemia Continue atorvastatin 40 mg p.o. daily Continue aspirin 81 mg p.o. 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 twice daily CODE STATUS: Full Discussed with: Patient Anticipated discharge place: Home/SNF I have seen and evaluated the patient today. Discussed with the resident and agree with the residents finding and plan as documented in the resident's note. Discussed with Dr. Begum, MPO Ab + ANCA + concerns for GN. Discussed with Dr. French at [facility], accepted for transfer. Will need a kidney biopsy. Started on SoluMedrol. CXR shows volume overload, started on Lasix IV. Objective - Vital Signs Vital signs: Vital Signs Temp 97.8 F 02/03/24 07:06 Pulse 75 02/03/24 07:06 Resp 16 02/03/24 07:06 BP 198/64 02/03/24 07:06 Pulse Ox 93 L 02/03/24 07:06 FiO2 Intake & Output 02/02/24 02/03/24 02/03/24 18:59 06:59 18:59 Intake Total 450 Balance 450 Intake: Intake, IV Titration 150 Amount Desmopressin Acetate 14 50 mcg In Sodium Chloride 0. 9% 50 ml @ 200 mls/hr IVPB ONCE ONE Rx#: [id number] Sodium Ferric Gluconat- 100 Sucrose 125 mg In Sodium Chloride 0.9% 100 ml @ 100 mls/hr IVPB DAILY [facility] Rx#:[id number] Blood Product 300 Rc As-1 Unit 0 [id number] Other: Voiding Method Toilet # Voids 1 - Labs CBC & Chem 7: 02/03/24 05:24 02/03/24 05:24 Labs: Abnormal Lab Results - Last 24 Hours (Table) 01/30/24 01/31/24 02/02/24 Range/Units 12:55 05:10 10:27 RBC (3.80-5.40) m/uL Hgb (11.4-16.0) gm/dL Hct (34.0-46.0) % RDW (11.5-15.5) % Chloride (96-109) mmol/L Carbon Dioxide (21.6-31.8) mmol/L Creatinine (0.6-1.5) mg/dL Est GFR (CKD-EPI) (>=60) BUN/Creatinine Ratio (12.00-20.00) Ratio Calcium (8.7-10.3) mg/dL RBC Folate 1,050 H (280 - 791) ng/mL Urine Protein (Negative) Urine Glucose (UA) (Negative) Urine Blood (Negative) Ur Leukocyte Esterase (Negative) Urine RBC (0-5) /hpf Urine WBC (0-5) /hpf Urine Mucus (None) /hpf Myeloperoxidase Ab 12.0 H (<3.5) U/mL Crossmatch See Detail 02/02/24 02/02/24 02/03/24 Range/Units 19:57 21:34 05:24 RBC 2.78 L (3.80-5.40) m/uL Hgb 8.3 L (11.4-16.0) gm/dL Hct 26.1 L (34.0-46.0) % RDW (11.5-15.5) % Chloride 112 H (96-109) mmol/L Carbon Dioxide 21.0 L (21.6-31.8) mmol/L Creatinine 2.8 H (0.6-1.5) mg/dL Est GFR (CKD-EPI) 16 L (>=60) BUN/Creatinine Ratio 7.68 L (12.00-20.00) Ratio Calcium 8.0 L (8.7-10.3) mg/dL RBC Folate (280 - 791) ng/mL Urine Protein 3+ H (Negative) Urine Glucose (UA) 3+ H (Negative) Urine Blood Moderate H (Negative) Ur Leukocyte Esterase Trace H (Negative) Urine RBC 51 H (0-5) /hpf Urine WBC 14 H (0-5) /hpf Urine Mucus Rare H (None) /hpf Myeloperoxidase Ab (<3.5) U/mL Crossmatch 02/03/24 Range/Units 05:24 RBC 2.61 L (3.80-5.40) m/uL Hgb 8.0 L (11.4-16.0) gm/dL Hct 24.3 L (34.0-46.0) % RDW 15.6 H (11.5-15.5) % Chloride (96-109) mmol/L Carbon Dioxide (21.6-31.8) mmol/L Creatinine (0.6-1.5) mg/dL Est GFR (CKD-EPI) (>=60) BUN/Creatinine Ratio (12.00-20.00) Ratio Calcium (8.7-10.3) mg/dL RBC Folate (280 - 791) ng/mL Urine Protein (Negative) Urine Glucose (UA) (Negative) Urine Blood (Negative) Ur Leukocyte Esterase (Negative) Urine RBC (0-5) /hpf Urine WBC (0-5) /hpf Urine Mucus (None) /hpf Myeloperoxidase Ab (<3.5) U/mL Crossmatch
[2024-02-03] MEDS: carvediloL 12.5 MG TAB PO SCH (17:31)
[2024-02-03 19:51] LABS: Anti-DNA, DS unit <1.0 IU/mL; DNA Double-Stranded Negative (Negative)
[2024-02-04 07:19] LABS: Basophils % (A) 0 %; Eosinophils # (A) 0.1 k/uL (0-0.7); Eosinophils % (A) 1 %; HCT 25.6 % (34.0-46.0); HGB 7.8 gm/dL (11.4-16.0); Hypochromasia Marked; Lymphocytes # (A) 0.8 k/uL (1.0-4.8); Lymphocytes % (A) 8 %; MCH 29.9 pg (25.0-35.0); MCHC 30.6 g/dL (31.0-37.0); MCV 97.5 fL (80.0-100.0); Mean Platelet Volume 8.1; Monocytes # (A) 0.2 k/uL (0-1.0); Monocytes % (A) 2 %; Neutrophils # (A) 8.6 k/uL (1.3-7.7); Neutrophils % (A) 89 %; Platelet Count 235 k/uL (150-450); RBC 2.62 m/uL (3.80-5.40); RDW 15.5 % (11.5-15.5); WBC 9.7 k/uL (3.8-10.6)
--- NOTE | 2024-02-04 09:55 | P.PN ---
Subjective Patient seen at bedside. No significant overnight events. Patient continues to complain of shortness of breath, currently on 2 L, not on oxygen at home. Awaiting placement at [facility]. Patient is seen in follow-up for acute kidney injury. Serum creatinine increased from 2.8 to 3.1 today. Objective - Vital Signs Vital signs: Vital Signs Temp 98.2 F 02/04/24 07:19 Pulse 91 02/04/24 07:19 Resp 18 02/04/24 07:19 BP 183/72 02/04/24 07:19 Pulse Ox 93 L 02/04/24 00:40 FiO2 Intake & Output 02/03/24 02/04/24 02/04/24 18:59 06:59 18:59 Other: Voiding Method Toilet # Voids 4 2 # Bowel Movements 1 - Exam Vital signs are stable. General: No acute distress. HEENT: Head exam is unremarkable. LUNGS: No audible rhonchi or wheezes. Slightly decreased breath sounds bilaterally. HEART: Rate and Rhythm are regular. ABDOMEN: Nontender. EXTREMITITES: No edema. - Labs CBC & Chem 7: 02/04/24 06:41 02/04/24 06:41 Labs: Abnormal Lab Results - Last 24 Hours (Table) 01/30/24 02/04/24 Range/Units 09:57 06:41 RBC 2.62 L (3.80-5.40) m/uL Hgb 7.8 L (11.4-16.0) gm/dL Hct 25.6 L (34.0-46.0) % MCHC 30.6 L (31.0-37.0) g/dL Neutrophils # 8.6 H (1.3-7.7) k/uL Lymphocytes # 0.8 L (1.0-4.8) k/uL c-ANCA See Below A (<1:20) Titer p-ANCA See Below A (<1:20) Titer Assessment and Plan Assessment: 1. Acute kidney injury secondary to hemodynamic ATN. Creatinine 3.62 on admission and is 3.1. Creatinine noted to be 2.8 dated October 30, 2023. Creatinine 1.0 in January 2023. Concern for GN with proteinuria and hematuria on UA. MPO antibody elevated at 12. Urine eosinophils negative. 2. Acute blood loss anemia status post blood transfusion this admission. Status post IV iron. On Aranesp. Also received IV DDAVP. 3. Hypertensive urgency. Aldosterone and renin direct level not elevated. 4. Metabolic acidosis secondary to acute kidney injury. 5. Tobacco abuse. 6. Volume overload. Plan: Continue Lasix 40 mg IV daily. Continue increased dose of Coreg. 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 Patient is awaiting an open bed at [facility] for transfer to receive kidney biopsy. Biopsy unable to be done here at this time. Continue IV Solu-Medrol 1 g daily for 3 days (day 2). Will transition to oral prednisone after completion of IV Solu-Medrol. Continue to monitor renal function and urine output. Awaiting anti-GBM results I have seen and examined the patient with resident and agree with A&P as written. Discussed case in detail with patient; also discussed with patient's daughter over the phone 02/03/24. All questions answered. Patient and family agreeable with plan.
[2024-02-04 10:46] LABS: BUN/Creat Ratio 9.39 Ratio (12.00-20.00); Blood Urea Nitrogen 29.1 mg/dL (9.0-27.0); Carbon Dioxide 18.1 mmol/L (21.6-31.8); Chloride 114 mmol/L (96-109); Glucose 144 mg/dL (70-110); Magnesium 1.9 mg/dL (1.5-2.4); Sodium 145 mmol/L (135-145)
[2024-02-04 10:47] LABS: Calcium 8.1 mg/dL (8.7-10.3)
--- NOTE | 2024-02-04 10:49 | P.PN ---
Subjective Progress Note Date: 02/04/24 Subjective: Patient seen and examined at bedside. No acute events overnight. No shortness of breath, chest pain, or abdominal pain. Patient voiding well. All Systems reviewed and pertinent positives and negatives noted in HPI, all other symptoms are negative Objective: Vital signs reviewed. General: non toxic, no distress, appears at stated age, underweight Derm: no unusual rashes/lesions, warm Head: atraumatic, normocephalic, symmetric Eyes: EOMI, no lid lag, anicteric sclera, pupils equal round reactive to light ENT: Nose and ears atraumatic Neck: No cervical lymphadenopathy, trachea midline, supple Mouth: no lip lesion, mucus membranes moist Cardiovascular: S1S2 reg, no murmur, positive dorsalis pedis pulse bilateral, no edema Lungs: Clear to auscultation bilaterally, no rhonchi, no rales, no accessory muscle use, 2 L nasal cannula Abdominal: soft, nontender to palpation, no guarding Ext: muscle strength 5 out of 5 in all 4 extremities grossly, no gross muscle atrophy, no contractures, Neuro: CN II-XI grossly intact, no gross focal neuro deficits Psych: Alert, oriented, appropriate affect Data reviewed today: Labs: WBC 9.7, hemoglobin 7.8, neutrophil count 5.6; BMP pending No new imaging today Assessment and Plan: 83-year-old female with PMH of CAD status post stent, CKD stage II, hypertension, anemia, COPD (not on home oxygen) presented to the ER with abnormal lab values. Patient was admitted for acute on chronic kidney disease and hypertensive urgency. Patient's hemoglobin dropped acutely and was transfused with 1 unit of PRBC. Hemoglobin improved to 8.0 post 1 unit of PRBC. N.p.o. and ANCA positive for glomerulonephritis etiology. Patient to be transf erred to [facility] for renal biopsy. Transfer pending bed availability. 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 Nephrology on board; case discussed; IV Solu-Medrol 1 g daily for 3 days and then transition to oral prednisone Monitor intake and output Hold nephrotoxic medication #Dyspnea secondary to hypervolemia #COPD, not in acute exacerbation Patient admits to shortness of breath (chronic, unchanged), denies cough or sputum production Place on DuoNeb 3 mL inhalation QID prn Symbicort (160-4.5 mcg inhaler) 2 puff inhalation twice daily Chest x-ray shows pulmonary venous congestion with small bilateral effusions and cardiomegaly. IV Lasix 40 mg daily #Hypertensive urgency #Chronic hypertension #Paroxysmal A-fib BP improving; MAP is around 80-85; systolic in 140s/diastolic in 50s Blood pressure goal <160/<100 inpatient with long-term goal < 140/< 90 Cardiology consulted Continue with carvedilol 25 mg p.o. twice daily, amlodipine 5 mg p.o. twice daily and hydralazine 100 mg p.o. 3 times daily Hold losartan due to SHERRON Patient is in sinus rhythm Echocardiogram on 01/30/2024 shows ejection fraction 55%. Normal LV size and preserved systolic function with mild concentric left ventricle hypertrophy. # Normocytic anemia, likely iron deficiency anemia and ACD Hemoglobin 7.8 Iron studies:Iron 27, TIBC 199, percent saturation 13, transferrin 148, ferritin 77, Reticulocyte count 1.8, haptoglobin 215 Patient denies active bleeding Continue with darbepoetin 60 mcg subcu weekly IV iron discontinued Follow-up CBC in a.m. Workup for GI source of bleeding: - EGD and colonoscopy in 10/2022 was unremarkable; - Capsule endoscopy in 12/16 unremarkable; - MRI abdomen shows pancolonic diverticulosis with no suspicious abdominal mass Patient likely need repeat capsule endoscopy or colonoscopy as an outpatient to evaluate for diverticulosis #Non Anion gap Metabolic acidosis, resolved Bicarb drip discontinued #CAD s/p stent placement #Hyperlipidemia Continue atorvastatin 40 mg p.o. daily Continue aspirin 81 mg p.o. 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 twice daily CODE STATUS: Full Discussed with: Patient Anticipated discharge place: Home/SNF I have seen and evaluated the patient today. Discussed with the resident and agree with the residents finding and plan as documented in the resident's note. Reports improved breathing after being started on Lasix 40 mg IV QD yesterday. Discussed with Dr. Begum. MPO Ab + ANCA + concerns for GN. Anti-GBM Ab pending. Accepted for transfer by Dr. French at [facility], accepted for transfer. Will need a kidney biopsy. BMP shows Cr 3.1 and bicarb 18.1. Started on sodium bicarbonate 650 mg PO BID. Monitor renal function and Hg. Objective - Vital Signs Vital signs: Vital Signs Temp 98.2 F 02/04/24 07:19 Pulse 91 02/04/24 07:19 Resp 18 02/04/24 07:19 BP 183/72 02/04/24 07:19 Pulse Ox 93 L 02/04/24 00:40 FiO2 Intake & Output 02/03/24 02/04/24 02/04/24 18:59 06:59 18:59 Other: Voiding Method Toilet # Voids 4 2 # Bowel Movements 1 - Labs CBC & Chem 7: 02/04/24 06:41 02/04/24 06:41 Labs: Abnormal Lab Results - Last 24 Hours (Table) 01/30/24 02/04/24 Range/Units 09:57 06:41 RBC 2.62 L (3.80-5.40) m/uL Hgb 7.8 L (11.4-16.0) gm/dL Hct 25.6 L (34.0-46.0) % MCHC 30.6 L (31.0-37.0) g/dL Neutrophils # 8.6 H (1.3-7.7) k/uL Lymphocytes # 0.8 L (1.0-4.8) k/uL c-ANCA See Below A (<1:20) Titer p-ANCA See Below A (<1:20) Titer
[2024-02-04] MEDS: MAGNESIUM SULFATE-D5W PMX 1 GM in DEXTROSE/WATER 1 100ML.BAG IVPB SCH (12:18)
[2024-02-04] MEDS: SODIUM BICARBONATE TAB 650 MG TAB PO SCH (14:48)
[2024-02-05 06:55] LABS: Anisocytosis Slight; Basophils % (A) 0 %; Eosinophils % (A) 0 %; HCT 24.8 % (34.0-46.0); Lymphocytes # (A) 0.9 k/uL (1.0-4.8); Lymphocytes % (A) 6 %; MCH 30.7 pg (25.0-35.0); MCHC 32.3 g/dL (31.0-37.0); MCV 95.2 fL (80.0-100.0); Mean Platelet Volume 8.7; Monocytes # (A) 0.5 k/uL (0-1.0); Monocytes % (A) 3 %; Neutrophils # (A) 13.1 k/uL (1.3-7.7); Neutrophils % (A) 90 %; Platelet Count 262 k/uL (150-450); RBC 2.61 m/uL (3.80-5.40); RDW 16.2 % (11.5-15.5); WBC 14.6 k/uL (3.8-10.6)
[2024-02-05 07:23] LABS: African American GFR (CKD) 15 (>60 ml/min/1.73 sqM); Anion Gap 9 mmol/L; Blood Urea Nitrogen 45 mg/dL (7-17); Calcium 8.1 mg/dL (8.4-10.2); Carbon Dioxide 21 mmol/L (22-30); Chloride 113 mmol/L (98-107); Glucose 147 mg/dL (74-99); Non-African American GFR(CKD) 13 (>60 ml/min/1.73 sqM); Sodium 143 mmol/L (137-145)
[2024-02-05 08:15] VITALS: RESP 17; TEMP 98.2
--- NOTE | 2024-02-05 11:39 | P.PN ---
Subjective Patient seen at bedside. No significant overnight events. Awaiting placement at [facility]. Patient is seen in follow-up for acute kidney injury. Renal function slightly worse with creatinine 3.2. Frustrated from waiting. Objective - Vital Signs Vital signs: Vital Signs Temp 98.2 F 02/05/24 07:21 Pulse 77 02/05/24 07:21 Resp 17 02/05/24 07:21 BP 153/66 02/05/24 07:21 Pulse Ox 98 02/05/24 07:21 FiO2 Intake & Output 02/04/24 02/05/24 02/05/24 18:59 06:59 18:59 Intake Total 120 Balance 120 Intake: Oral 120 Other: Voiding Method Toilet # Voids 3 2 - Labs CBC & Chem 7: 02/05/24 06:34 02/05/24 06:34 Labs: Abnormal Lab Results - Last 24 Hours (Table) 02/05/24 02/05/24 Range/Units 06:34 06:34 WBC 14.6 H (3.8-10.6) k/uL RBC 2.61 L (3.80-5.40) m/uL Hgb 8.0 L (11.4-16.0) gm/dL Hct 24.8 L (34.0-46.0) % RDW 16.2 H (11.5-15.5) % Neutrophils # 13.1 H (1.3-7.7) k/uL Lymphocytes # 0.9 L (1.0-4.8) k/uL Chloride 113 H (98-107) mmol/L Carbon Dioxide 21 L (22-30) mmol/L BUN 45 H (7-17) mg/dL Creatinine 3.21 H (0.52-1.04) mg/dL Glucose 147 H (74-99) mg/dL Calcium 8.1 L (8.4-10.2) mg/dL Assessment and Plan Assessment: 1. Acute kidney injury secondary to hemodynamic ATN. Creatinine 3.62 on adm ission and is 3.21 today. Creatinine noted to be 2.8 dated October 30, 2023. Creatinine 1.0 in January 2023. Concern for GN with proteinuria and hematuria on UA. MPO antibody elevated at 12. Urine eosinophils negative. 2. Acute blood loss anemia status post blood transfusion this admission. Sta tus post IV iron. On Aranesp. Also received IV DDAVP. Hemoglobin stable. 3. Hypertensive urgency. Aldosterone and renin direct level not elevated. Stable. 4. Metabolic acidosis secondary to acute kidney injury. On oral bicarb. Better. 5. Tobacco abuse. 6. Volume overload. On IV Lasix. Anti-GBM negative. Plan: Continue Lasix 40 mg IV daily. 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 Patient is awaiting an open bed at [facility] for transfer to receive kidney biopsy. Biopsy unable to be done here at this time. Continue IV Solu-Medrol 1 g daily for 3 days (day 3). Will transition to oral prednisone 30 mg twice daily starting tomorrow. Maintain PPI. Continue to monitor renal function and urine output. Anti-GBM antibody negative. Repeat chest x-ray.
[2024-02-05 14:02] VITALS: BP 104/66; PULSE 70
[2024-02-05 14:20] VITALS: BMI 19.6
--- NOTE | 2024-02-05 16:23 | XR ---
EXAMINATION TYPE: XR chest 1V DATE OF EXAM: 02/05/2024 COMPARISON: 02/03/2024 HISTORY: 83 year-old female shortness of breath TECHNIQUE: Single frontal view of the chest is obtained. FINDINGS: Heart mildly enlarged. Small right pleural effusion with adjacent right basilar opacity. T race left pleural effusion minimally increased. Suspect underlying left breast implant causing hazy d ensity. IMPRESSION: 1. Similar mild cardiomegaly and ongoing small right pleural effusion with adjacent atelectasis and/o r consolidation. 2. Slight increase in trace left pleural effusion.
--- NOTE | 2024-02-05 16:47 | P.DS ---
Providers Date of admission: 01/29/24 19:08 Attending physician: Emely Nielsen MD Discharge Diagnosis: SHERRON on CKD (stage II-III) COPD, not in acute exacerbation Hypertensive urgency, resolved Chronic hypertension Paroxysmal A-fib, ruled out Normocytic anemia, likely iron deficiency anemia and ACD Non Anion gap Metabolic acidosis, resolved Hyperlipidemia Hx of CAD s/p stent placement History of tremor (suspect essential) History of breast cancer status post left breast mastectomy (in remission) Hospital Course: 83-year-old female with PMH of CAD status post stent, CKD stage II, hypertension, anemia, COPD (not on home oxygen) presented to the ER with abnormal lab values. She was being seen by PCP for her chronic anemia. Labs were drawn by PCP and was noticed that her GFR was 15 and was advised to go to the emergency department for further evaluation. EKG showed atrial fibrillation with a rate of 73 bpm, QTc 413 with findings of LVH. WBC 8.0, Hgb 8.7, MCV 93.1, sodium 140, potassium 4.5, chloride 115, CO2 19, BUN 33, creatinine 3.62 (up from 2.8 in 10/30/23 and 1.0 on 02/14/23), GFR 11, total protein 5.6, albumin 3.0, calcium 8.1, mag 2.2. UA showed protein 3+, glucose 3+, urine blood moderate, urine RBC 69, urine WBC 23. T 97.9F, MA 74, RR 20, BP 225/83, O2 sat 98% on room air. Patient was admitted for acute on chronic kidney disease and hypertensive urgency. Cardiology was consulted. Repeat EKG showed normal sinus rhythm. A-fib was ruled out. Nephrology was consulted. Renal ultrasound was negative for hydronephrosis. Workup for secondary causes of SHERRON was positive for MPO antibody and ANCA. Anti-GBM antibody negative. 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 Patient was started on IV Solu-Medrol 1 g daily for 3 days. Creatinine level did improve briefly but has been worsening since 02/03/2024. For definitive diagnosis and further treatment management patient to be transferred to [facility] in [place] for renal biopsy. During the course of this admission, patient's hemoglobin dropped acutely and was transfused with 1 unit of PRBC. Hemoglobin improved to 8.0, at baseline. Outpatient follow-up with nephrology postdischarge from [facility]. Vital signs reviewed. General: non toxic, no distress, appears at stated age, underweight Derm: no unusual rashes/lesions, warm Head: atraumatic, normocephalic, symmetric Eyes: EOMI, no lid lag, anicteric sclera, pupils equal round reactive to light ENT: Nose and ears atraumatic Neck: No cervical lymphadenopathy, trachea midline, supple Mouth: no lip lesion, mucus membranes moist Cardiovascular: S1S2 reg, no murmur, positive dorsalis pedis pulse bilateral, no edema Lungs: Clear to auscultation bilaterally, no rhonchi, no rales, no accessory muscle use, 1 L nasal cannula Abdominal: soft, nontender to palpation, no guarding Ext: muscle strength 5 out of 5 in all 4 extremities grossly, no gross muscle atrophy, no contractures, Neuro: CN II-XI grossly intact, no gross focal neuro deficits Psych: Alert, oriented, appropriate affect Consults: 01/29/24 19:06 Consult Physician Urgent Consulting Provider: Jing Jason Consult Reason/Comments: Acute renal failure Do you want consulting provider notified?: Yes Primary care physician: [facility] Course: I have seen and evaluated the patient today. Discussed with the resident and a gree with the residents finding and plan as documented in the resident's note. Patient reports continued SOB. Case discussed extensively with the family regarding need for transfer and biopsy. All questions answered. Plans for transfer to [facility] today. This complex discharge took 35 minutes to complete. Patient Condition at Discharge: Stable Plan - Discharge Summary Discharge Rx Participant: Yes New Discharge Prescriptions: No Action hydrALAZINE HCL [Apresoline] 50 mg PO TID amLODIPine [Norvasc] 5 mg PO DAILY Losartan [Cozaar] 50 mg PO DAILY Famotidine [Pepcid] 20 mg PO BID Melatonin 10 mg PO HS PRN PRN Reason: Insomnia Aspirin 81 mg PO DAILY #90 tab Atorvastatin [Lipitor] 40 mg PO DAILY #90 tab Nitroglycerin Sl Tabs [Nitrostat] 0.4 mg SUBLINGUAL Q5M PRN tab PRN Reason: Chest Pain Propranolol [Inderal] 20 mg PO BID Pantoprazole Sodium [Protonix] 40 mg PO BID Ondansetron Odt [Zofran Odt] 4 mg PO Q12HR PRN PRN Reason: Nausea Mirtazapine [Remeron] 30 mg PO HS Discharge Medication List hydrALAZINE HCL [Apresoline] 50 mg PO TID 12/05/21 [History] Aspirin 81 mg PO DAILY #90 tab 12/07/21 [Rx] Atorvastatin [Lipitor] 40 mg PO DAILY #90 tab 12/07/21 [Rx] Nitroglycerin Sl Tabs [Nitrostat] 0.4 mg SUBLINGUAL Q5M PRN tab 12/07/21 [Rx] Propranolol [Inderal] 20 mg PO BID 10/23/22 [History] Famotidine [Pepcid] 20 mg PO BID 01/29/24 [History] Losartan [Cozaar] 50 mg PO DAILY 01/29/24 [History] Melatonin 10 mg PO HS PRN 01/29/24 [History] Mirtazapine [Remeron] 30 mg PO HS 01/29/24 [History] Ondansetron Odt [Zofran Odt] 4 mg PO Q12HR PRN 01/29/24 [History] Pantoprazole Sodium [Protonix] 40 mg PO BID 01/29/24 [History] amLODIPine [Norvasc] 5 mg PO DAILY 01/29/24 [History] Follow up Appointment(s)/Referral(s): Alisia Nick MD [Primary Care Provider] - 1-2 days
[2024-02-06] MEDS ORDERED: predniSONE 10 MG TAB PO SCH (09:00)
== END 2024-02-05 17:59 | disposition short-term general hospital (02) | DRG 683 ==
LOC: EC 15:18 → 3SCARD 19:08 → 4SSUR 01-30 14:25
PROVIDERS: ADMIT Internal Medicine; ATTEND Internal Medicine
PROC: 30233N1 Transfusion of Nonautologous Red Blood Cells into Peripheral Vein, Percutaneous Approach (ICD-10-PCS; principal; 2024-02-02)
DX: N17.0 Acute kidney failure with tubular necrosis (principal); D62 Acute posthemorrhagic anemia; E87.20 Acidosis, unspecified; I31.39 Other pericardial effusion (noninflammatory); D63.1 Anemia in chronic kidney disease; I13.10 Hypertensive heart and chronic kidney disease without heart failure, with stage 1 through stage 4 chronic kidney disease, or unspecified chronic kidney disease; F32.A Depression, unspecified; I73.9 Peripheral vascular disease, unspecified; J44.9 Chronic obstructive pulmonary disease, unspecified; N18.31 Chronic kidney disease, stage 3a; D50.9 Iron deficiency anemia, unspecified; I16.0 Hypertensive urgency; E78.5 Hyperlipidemia, unspecified; F17.210 Nicotine dependence, cigarettes, uncomplicated; I25.10 Atherosclerotic heart disease of native coronary artery without angina pectoris; F41.9 Anxiety disorder, unspecified; E87.70 Fluid overload, unspecified; K57.30 Diverticulosis of large intestine without perforation or abscess without bleeding; Z79.82 Long term (current) use of aspirin; Z79.899 Other long term (current) drug therapy; Z85.3 Personal history of malignant neoplasm of breast; Z90.12 Acquired absence of left breast and nipple; Z92.21 Personal history of antineoplastic chemotherapy; Z95.5 Presence of coronary angioplasty implant and graft
CPT/HCPCS: 36415; 71045; 76770; 80048; 80053; 81001; 82088; 82306; 82607; 82728; 82747; 83010; 83516; 83540; 83550; 83605; 83615; 83735; 83970; 84100; 84133; 84244; 84300; 84443; 84466; 85025; 85045; 86038; 86160; 86162; 86225; 86255; 86334; 86335; 86706; 86803; 86850; 86900; 86901; 86920; 87205; 87340; 93005; 93306; 96361; 96372; 96374; 99285

== ENCOUNTER → 2024-03-29 | Outpatient (CLI) | payer MEDICARE ==
--- NOTE | 2024-03-29 16:33 | US ---
EXAMINATION TYPE: US kidneys/renal and bladder DATE OF EXAM: 03/29/2024 COMPARISON: NONE CLINICAL INDICATION: Female, 83 years old with history of N17.9 CKD; ckd TECHNIQUE: Grayscale imaging of the bilateral kidneys and urinary bladder: FINDINGS EXAM MEASUREMENTS: Right Kidney: 8.9 x 3.0 x 3.3 cm Left Kidney: 8.4 x 4.3 x 2.8 cm Incidental finding pleural effusion seen on right side. Right Kidney: No hydronephrosis or masses seen Left Kidney: No hydronephrosis or masses seen Bladder: Anechoic Bilateral Jets seen: no There is no evidence for hydronephrosis at this point in time. No nephrolithiasis is seen. No ty s are identified. The urinary bladder is anechoic. IMPRESSION: No renal or bladder abnormality identified at this time. The kidneys are diminutive in size. Incident al pleural effusion noted on the right. [facility], , 03/29/2024 4:30 PM
== END | disposition home or self-care (01) ==
LOC: RADUSWWP 15:29
PROVIDERS: ATTEND Internal Medicine Nephrology
DX: N17.9 Acute kidney failure, unspecified (principal); J90 Pleural effusion, not elsewhere classified
CPT/HCPCS: 76770